=== PATIENT | female | born 1970 | race Caucasian/White ===

== ENCOUNTER 2017-05-09 07:35 | Inpatient (IN) | payer MEDICAID, SELFPAY ==
[2017-04-23 15:15] VITALS: BP 126/83; PULSE 70; RESP 18; TEMP 37.2; BMI 42.0
--- NOTE | 2017-04-23 15:36 | SDCEKG_ITS ---
Test Reason : Blood Pressure : / mmHG Vent. Rate : 062 BPM Atrial Rate : 062 BPM P-R Int : 130 ms QRS Dur : 084 ms QT Int : 390 ms P-R-T Axes : 033 022 012 degrees QTc Int : 395 ms Normal sinus rhythm with sinus arrhythmia Normal ECG Confirmed by HEBER TORREZ, MELISSA ([id number]), script editor GILMAR ZENG ([id number] on 04/24/2017 10:51:54 AM Referred By: ADAM LUEK Confirmed By:MELISSA BUCK MD
[2017-04-23 15:59] LABS: Absolute Lymphocyte Count 3.86 X10^3/ul (0.83-4.51); Absolute Neutrophil Count 5.8 X10^3/uL (2.0-7.7); Basophil# 0.05 X10^3/uL; Basophil% 0.5 % (0-1); Eosinophils% 3.8 % (0-5); Hematocrit 44.5 % (37-47); Hemoglobin 14.8 g/dl (12.0-15.0); Lymphocyte # 3.86 X10^3/ul (4.0); Lymphocyte % 36.4 % (19-41); Mean Corp Hgb Conc 33.3 g/gl (32-36); Mean Corpuscular Hgb 29.8 pg (27.0-32.0); Mean Corpuscular Volume 89.5 fL (81-99); Mean Platelet Vol. 10.6 fl (6.2-12.0); Monocyte# 0.52 X10^3/uL; Monocyte% 4.9 % (0-10); Neutrophil # 5.76 X10^3/uL (2.7-7.7); Neutrophil % 54.3 % (47-70); Platelet Count 222 K/mm3 (150-450); RBC Distribution Width CV 13.2 % (11.6-14.6); RBC Distribution Width SD 42.8 fl (35.1-43.9); Red Blood Count 4.97 M/mm3 (4.2-5.4); White Blood Count 10.6 K/mm3 (4.4-11.0)
[2017-04-23 16:03] LABS: POSITIVE COUNT NO; POSITIVE DIFFERENTIAL NO; POSITIVE MORPHOLOGY NO
[2017-04-23 16:31] LABS: Anion Gap 7 (5-15); BUN 11 mg/dL (7-18); BUN/Creat Ratio 17.4 RATIO (10-20); Calcium,Total 8.5 mg/dL (8.5-10.1); Chloride 105 mmol/L (98-107); Creatinine, Serum 0.63 mg/dL (0.55-1.02); EST Glomerular Filtration Rate 108 mL/min (>60); Est Glom Filt Rate - Afr Amer 130 mL/min (>60); Estimated Creatinine Clearance 96.35 ml/min; Glucose 82 mg/dL (70-110); Potassium 3.6 mmol/L (3.5-5.1); Sodium Level 137 mmol/L (136-145)
--- NOTE | 2017-04-23 18:02 | PCM.HP.BLA ---
History and Physical DATE OF SERVICE: 05/09/2017 SCHEDULED PROCEDURE: Left knee revision unicompartmental to a total knee replacement HISTORY OF PRESENT ILLNESS: This is a 47-year-old female who is been having ongoing pain in the left knee for approximately 3 years. Patient underwent a arthro-surface component in February 2016. Patient had increased pain in the left knee after the procedure and CT scan did show internal rotation of the implant. She was getting lateral subluxation of the patella. Patient initially needed narcotic pain medications. Patient underwent a revision femoral component left partial knee replacement on October 24, 2016. Patient initially was doing well after the procedure but pain increased in February 2017. It is progressively become worse. Pain is constant, aching, stabbing, and sore. She has pain going up and down stairs and sitting for extended periods of time. She has difficult time with doing housework, shopping, and leisure activities such as farming. Patient has tripped due to the pain. Patient has tried rest ice with minimal relief in symptoms. Patient has been through formal physical therapy and home exercises with no significant relief. She has been using Ultram and Tylenol which has been helpful. After discussion with Dr. Gan, the patient would like to proceed with a left knee revision unicompartmental to a total knee replacement. We are obtaining surgical clearance from patient's primary care physician. Patient denies any chest pain, shortness of breath, fevers chills, or recent infections. REVIEW OF SYSTEMS: ROS: Const: Denies change in appetite, fever, hard of hearing, vision problems and weight change CV: Denies chest pain, heart murmur, irregular heartbeat and peripheral vascular disease. Resp: Denies asthma, cough, pneumonia, sleep apnea, SOB, tuberculosis and wheezing. GI: Denies constipation, diarrhea, difficulty swallowing, heartburn, nausea, bloody stools and vomiting. : . (F Genital Sx) Urinary: denies incontinence. Musculo: Reports leg swelling, limp, trouble walking and weakness. Skin: Reports tattoo, but denies Raynaud's and history of shingles. Neuro: Reports numbness/tingling but denies ambulatory dysfunction, dizziness and tremor. Psych: Reports anxiety, insomnia and stress, but denies depression and mental illness. Arthur/Lymph: Denies anemia, bleeding/bruising tendency and past transfusion. Reviewed, no changes. PAST MEDICAL HISTORY: Advance Care Plan: No Advance Directives Effective Date: 04/23/2017 PMH: Medical Problems: Arthritis, Kidney Stones Accidents: None Surgical Hx: Kidney Stones - (2009) RT Knee Arhthroscopy - (01/2014) [facility] Lexx TKR - (02/2016) LAKSHMI @ [facility] LT TKR Revision - (10/24/2016) [email or web address] Anesthesia Complications: None Assistive Devices: Glasses Reviewed and updated. 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 Personal Habits: Cigarette Use: Patient is a current cigarette smoker, smokes some days.Alcohol: Denies use.Drug Use: Denies Use.Enjoy Exercising: Exercises 1-3 X/Week. Reviewed, no changes. VITALS: Ht: 64 Wt: 245lb Wt k.132 BMI: 42.0 BP: 120/78 Pulse: 80 Resp: 16 T: 99.0 T: 37.2C ALLERGIES: No Known Drug Allergy MEDICATIONS: Ultram 50 mg 1-2 by mouth q6 hour as needed pain, Tylenol 325 mg take as needed PRE-OP EXAM: General appearance:NORMAL Other: Eyes: Conjunctivae and lids: NORMAL Pupils: ERR Ears, Nose, Mouth, and Throat: NORMAL Other: Inspection of lips, teeth and gums: NORMAL Other: Neck: Examination of neck: no masses noted. Respiratory: Assessment of respiratory effort: NORMAL Other: Ausculation of lungs: clear to ausculation no wheeses, ronchi or rales. Cardiovascular: Ausculation of heart: regular rate and rhythem, no mummurs, gallops or rubs. Exam of carotid arteries: NORMAL Other: Gastrointestinal: Exam of abdomen: soft, nontender, nondistended bowel sounds present. Lymphatic: Palpation of nodes in neck: NORMAL Other: Palpation of nodes in Axillae: NORMAL Other: Neurological: see below Psychiatric: Orientation to time, place and person: NORMAL Other: Mood and affect: NORMAL Other: PHYSICAL EXAMINATION: Patient currently walking with the use of a cane. She does walk with a limping gait. Left knee incision is well-healed without erythema warmth or signs of infection. Patient does have tenderness to palpation of the lateral facet of the patella. Range of motion is +5? of extension to 115? of flexion. Sensations intact light touch IMAGING STUDIES: X-rays of the left knee at [facility] [place] shows patient to have progressive lateral migration of the patella. Initial postoperative films show patella sitting well in the trochlear groove. 2 subsequent films show progressive lateral migration. Implants appear to be without loosening. IMPRESSION: 1. Painful right unicompartmental knee replacement 2. History of kidney stones PLAN: Dr. Gan did discuss and review with the patient all treatment options including surgical versus nonsurgical. Patient wishes to proceed with above-stated procedure. Potential risks, benefits, and complications of this procedure were discussed in detail including but not limited to , infection, nerve and blood vessel damage, persistent pain, numbness, tingling, paresthesias, blood clot, pulmonary embolism, and requirement for further surgery. The patient expressed full understanding has no further questions for the doctor. Patient does agree to proceed with the above-stated procedure and has signed the surgery consent form. We are obtaining surgical clearance from PCP. ___ I have re-examined the patient. There are no clinical changes since date of exam. ___ See progress notes for changes. ___ Dictated on admission Date: Time: Signature:
--- NOTE | 2017-04-23 18:13 | HP.PCM_ITS ---
History and Physical DATE OF SERVICE: 05/09/2017 SCHEDULED PROCEDURE: Left knee revision unicompartmental to a total knee replacement HISTORY OF PRESENT ILLNESS: This is a 47-year-old female who is been having ongoing pain in the left knee for approximately 3 years. Patient underwent a arthro-surface component in February 2016. Patient had increased pain in the left knee after the procedure and CT scan did show internal rotation of the implant. She was getting lateral subluxation of the patella. Patient initially needed narcotic pain medications. Patient underwent a revision femoral component left partial knee replacement on October 24, 2016. Patient initially was doing well after the procedure but pain increased in February 2017. It is progressively become worse. Pain is constant, aching, stabbing, and sore. She has pain going up and down stairs and sitting for extended periods of time. She has difficult time with doing housework, shopping, and leisure activities such as farming. Patient has tripped due to the pain. Patient has tried rest ice with minimal relief in symptoms. Patient has been through formal physical therapy and home exercises with no significant relief. She has been using Ultram and Tylenol which has been helpful. After discussion with Dr. Gan, the patient would like to proceed with a left knee revision unicompartmental to a total knee replacement. We are obtaining surgical clearance from patient's primary care physician. Patient denies any chest pain, shortness of breath, fevers chills, or recent infections. REVIEW OF SYSTEMS: ROS: Const: Denies change in appetite, fever, hard of hearing, vision problems and weight change CV: Denies chest pain, heart murmur, irregular heartbeat and peripheral vascular disease. Resp: Denies asthma, cough, pneumonia, sleep apnea, SOB, tuberculosis and wheezing. GI: Denies constipation, diarrhea, difficulty swallowing, heartburn, nausea, bloody stools and vomiting. : . (F Genital Sx) Urinary: denies incontinence. Musculo: Reports leg swelling, limp, trouble walking and weakness. Skin: Reports tattoo, but denies Raynaud's and history of shingles. Neuro: Reports numbness/tingling but denies ambulatory dysfunction, dizziness and tremor. Psych: Reports anxiety, insomnia and stress, but denies depression and mental illness. Arthur/Lymph: Denies anemia, bleeding/bruising tendency and past transfusion. Reviewed, no changes. PAST MEDICAL HISTORY: Advance Care Plan: No Advance Directives Effective Date: 04/23/2017 PMH: Medical Problems: Arthritis, Kidney Stones Accidents: None Surgical Hx: Kidney Stones - (2009) RT Knee Arhthroscopy - (01/2014) [facility] Lexx TKR - (02/2016) LAKSHMI @ [facility] LT TKR Revision - (10/24/2016) [email or web address] Anesthesia Complications: None Assistive Devices: Glasses Reviewed and updated. 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 Personal Habits: Cigarette Use: Patient is a current cigarette smoker, smokes some days.Alcohol: Denies use.Drug Use: Denies Use.Enjoy Exercising: Exercises 1 -3 X/Week. Reviewed, no changes. VITALS: Ht: 64 Wt: 245lb Wt k.132 BMI: 42.0 BP: 120/78 Pulse: 80 Resp: 16 T: 99.0 T: 37.2C ALLERGIES: No Known Drug Allergy MEDICATIONS: Ultram 50 mg 1-2 by mouth q6 hour as needed pain, Tylenol 325 mg take as needed PRE-OP EXAM: General appearance:NORMAL Other: Eyes: Conjunctivae and lids: NORMAL Pupils: ERR Ears, Nose, Mouth, and Throat: NORMAL Other: Inspection of lips, teeth and gums: NORMAL Other: Neck: Examination of neck: no masses noted. Respiratory: Assessment of respiratory effort: NORMAL Other: Ausculation of lungs: clear to ausculation no wheeses, ronchi or rales. Cardiovascular: Ausculation of heart: regular rate and rhythem, no mummurs, gallops or rubs. Exam of carotid arteries: NORMAL Other: Gastrointestinal: Exam of abdomen: soft, nontender, nondistended bowel sounds present. Lymphatic: Palpation of nodes in neck: NORMAL Other: Palpation of nodes in Axillae: NORMAL Other: Neurological: see below Psychiatric: Orientation to time, place and person: NORMAL Other: Mood and affect: NORMAL Other: PHYSICAL EXAMINATION: Patient currently walking with the use of a cane. She does walk with a limping gait. Left knee incision is well-healed without erythema warmth or signs of infection. Patient does have tenderness to palpation of the lateral facet of the patella. Range of motion is +5? of extension to 115? of flexion. Sensations intact light touch IMAGING STUDIES: X-rays of the left knee at [facility] [place] shows patient to have progressive lateral migration of the patella. Initial postoperative films show patella sitting well in the trochlear groove. 2 subsequent films show progressive lateral migration. Implants appear to be without loosening. IMPRESSION: 1. Painful right unicompartmental knee replacement 2. History of kidney stones PLAN: Dr. Gan did discuss and review with the patient all treatment options including surgical versus nonsurgical. Patient wishes to proceed with above- stated procedure. Potential risks, benefits, and complications of this procedure were discussed in detail including but not limited to , infection , nerve and blood vessel damage, persistent pain, numbness, tingling, paresthesias, blood clot, pulmonary embolism, and requirement for further surgery. The patient expressed full understanding has no further questions for the doctor. Patient does agree to proceed with the above-stated procedure and has signed the surgery consent form. We are obtaining surgical clearance from PCP. ___ I have re-examined the patient. There are no clinical changes since date of exam. ___ See progress notes for changes. ___ Dictated on admission Date: Time: Signature:
[2017-05-09] VITALS (11 sets, daily range): BP systolic 111–130; BP diastolic 66–87; PULSE 53–79; RESP 16–18; TEMP 36.2–37.2; O2SAT 94–99; BMI 42.0
--- OUTSIDE RECORDS SUMMARY | 2017-05-09 07:38 | XMS RPT_ITS ---
:1970 Author Organization OHIP Support Name Relationship Address Phone Headroom [facility] Unavailable [address] + [place] [address] MARTHEY, KIRSTEN Unavailable [address] + [place] [address] [facility] Unavailable [address] + [place] [address] MARTHEY, KIRSTEN Unavailable [address] + [place] [address] [facility] Unavailable [address] + [place] [address] MARTHEY, KIRSTEN Unavailable [address] + [place] [address] [facility]room [facility] Unavailable [address] + [place] [address] MARTHEY, KIRSTEN Unavailable [address] + [place] [address] [employer] [facility] Unavailable [address] + [place] [address] MARTHEY, KIRSTEN Unavailable [address] + [place] [address] MARTHEY, KIRSTEN Unavailable Unavailable + MARTHEY, KIRSTEN Unavailable Unavailable + MARTHEY, KIRSTEN Unavailable Unavailable + MARTHEY, KIRSTEN Unavailable Unavailable + Headroom [facility] Unavailable [address] + [place] [address] Headroom [facility] Unavailable [address] + [place] [address] MARTHEY, KIRSTEN Unavailable [address] + [place] [address] MARTHEY, KIRSTEN Unavailable Unavailable + MARTHEY, KIRSTEN Unavailable Unavailable + MARTHEY, KIRSTEN Unavailable Unavailable + MARTHEY, KIRSTEN Unavailable Unavailable + Marthey, Kirsten Unavailable Unavailable + [employer] [facility] Unavailable [address] +. [place] [address] [employer] [facility] Unavailable [address] +. [place] [address] MARTHEY, KIRSTEN Unavailable [address] + [place] [address] Headroom [facility] Unavailable [address] +. [place] [address] [employer] [facility] Unavailable [address] +. [place] [address] MARTHEY, KIRSTEN Unavailable [address] + [place] [address] Care Team Providers Name Role Phone Fredo Mckeon Attending Unavailable PROVIDER, UNKNOWN Referring Unavailable Bernadette, Michelle Primary Care Unavailable FREDO MCKEON Attending Unavailable FREDO MCKEON Referring Unavailable DR. Gia FERRERA MD. MICHELLE Primary Care Unavailable KATRIN TURCIOS MD Attending Unavailable BERNADETTE, MICHELLE Primary Care Unavailable FREDO MCKEON MD Attending Unavailable FREDO MCKEON MD Referring Unavailable BERNADETTE, MICHELLE Primary Care Unavailable BERNADETTE, MICHELLE Attending Unavailable BERNADETTE, MICHELLE Primary Care Unavailable Deloris Drummond Attending Unavailable Bernadette, Michelle Primary Care Unavailable Fredo Mckeon Admitting Unavailable Fredo Mckeon Attending Unavailable Bernadette, Michelle Primary Care Unavailable Alexx Garcia Attending Unavailable Bernadette, Michelle Primary Care Unavailable Saleem Reyna Attending Unavailable Bernadette, Michelle Primary Care Unavailable Bernadette, Michelle Primary Care Unavailable Wild Kimbrough Attending Unavailable Fredo Mckeon Admitting Unavailable Fredo Mckeon Attending Unavailable Bernaedtte, Michelle Primary Care Unavailable Christiano Verde Attending Unavailable Fredo Mckeon Referring Unavailable Frankie Smith Admitting Unavailable Bernadette, Michelle Primary Care Unavailable Gonzalez Falk Attending Unavailable Gonzalez Falk Consulting Unavailable PROBLEMS PROBLEMS DATE TYPE CONDITION / CODE ATTENDING STATUS SOURCE 05/08/2017 Unknown Z01.818 - Encounter Christiano Verde Active [facility] for other [facility] preprocedural Hospital examination / Repository Z01.818(ICD-10) 04/02/2017 Unknown R10.9 - Unspecified Wild Kimbrough Active [facility] abdominal pain / Community R10.9(ICD-10) Hospital Repository 02/14/2017 Unknown HYDRONEPHROSIS WITH Jose, Active [place] RENAL AND URETERAL [facility] CALCULOUS Hospital OBSTRUCTION / Repository N13.2(ICD-10) 02/14/2017 Unknown PERSONAL HISTORY OF Jose, Active [place] URINARY CALCULI / [facility] Z87.442(ICD-10) Hospital Repository 02/14/2017 Unknown URINARY TRACT Jose, Active [place] INFECTION, SITE NOT [facility] SPECIFIED / Hospital N39.0(ICD-10) Repository 02/01/2017 Admitting Dysuria / [facility]TE[facility] Repository 02/14/2017 Unknown INSTABILITY OF Malik Fredo Active [facility] INTERNAL LEFT KNEE [facility] PROSTHESIS, INIT Hospital ENCNTR / Repository T84.023A(ICD-10) 02/14/2017 Unknown PROSTH/OTH Fredo Mckeon Active [place] IMPLNT/MTRLS [facility] ORTHOPEDIC DEVICES Hospital ASSOC W INCDT / Repository Y79.2(ICD-10) 02/14/2017 Unknown PRESENCE OF Fredo Mckeon Active [facility] ARTIFICIAL KNEE [facility] JOINT, BILATERAL / Hospital Z96.653(ICD-10) Repository 02/14/2017 Unknown MORBID (SEVERE) Fredo Mckeon Active [place] OBESITY DUE TO Community EXCESS CALORIES / Hospital E66.01(ICD-10) Repository 02/14/2017 Unknown SLEEP APNEA, Fredo Mckeon Active [facility] UNSPECIFIED / Community G47.30(ICD-10) Hospital Repository 09/20/2016 Admitting Unknown / FREDO MCKEON Active [facility] Diagnosis UNK([facility] Unknown) Repository 09/14/2016 Admitting Pain in left knee / MalikFredo Active [employer] [facility] Diagnosis M25.562(ICD-10) System Repository 09/14/2016 Admitting Presence of left Malik, Fredo Active [employer] [facility] Diagnosis artificial knee System joint / Repository Z96.652(ICD-10) 02/14/2017 Unknown EMBOLISM AND Drummond, Active [facility] THROMBOSIS OF [facility] SUPERFIC VEINS OF Hospital LEFT LOW EXTRM / Repository I82.812(ICD-10) 02/14/2017 Unknown OBESITY, UNSPECIFIED Drummond, Active [place] / E66.9(ICD-10) [facility] Repository 02/14/2017 Unknown BODY MASS INDEX Bhanu Active [facility] (BMI) 40.0-44.9, [facility] ADULT / Hospital Z68.41(ICD-10) Repository 02/14/2017 Unknown TOBACCO USE / Drummond, Active [facility] Z72.0(ICD-10) [facility] Repository 02/14/2017 Unknown BILATERAL PRIMARY KitGonzalez raya Active [place] OSTEOARTHRITIS OF [facility] KNEE / M17.0(ICD-10) Hospital Repository 02/14/2017 Unknown BODY MASS INDEX Gonzalez Falk Active [place] (BMI) 70 OR GREATER, [facility] ADULT / Hospital Z68.45(ICD-10) Repository 02/14/2017 Unknown OTHER FATIGUE / KitGonzalez raya Active [place] R53.83(ICD-10) [facility] Hospital Repository 02/14/2017 Unknown OBSTRUCTIVE SLEEP Gonzalez Falk Active [facility] APNEA (ADULT) Community (PEDIATRIC) / Hospital G47.33(ICD-10) Repository 02/14/2017 Unknown NICOTINE DEPENDENCE, Gonzalez Falk Active [facility] CIGARETTES, Community UNCOMPLICATED / Hospital F17.210(ICD-10) Repository 02/14/2017 Unknown OTHER DETENTION KitGonzalez raya Active [place] (CURRENT) DRUG Community THERAPY / Hospital Z79.899(ICD-10) Repository 02/14/2017 Unknown 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 (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) Gonzalez Falk Active [facility] USE OF ASPIRIN / Community Z79.82(ICD-10) Hospital Repository 02/14/2017 Unknown ACUTE UPPER KitGonzalez raya Active [facility] RESPIRATORY Community INFECTION, Hospital UNSPECIFIED / Repository J06.9(ICD-10) 02/14/2017 Unknown EDEMA, UNSPECIFIED / Kittoe, Gonzalez Active [facility] R60.9(ICD-10) [facility] Hospital Repository PROCEDURES PROCEDURES No Procedure Records FoundRESULTS RESULTS 12 LEAD ELECTROCARDIOGRAM Observed: 04/24/2017 Status: F Source: [facility] 10:52 AM [facility] [place] [facility] Vcukonpm0846 ALEM ANDRADE [address]YCV - SDC04/23/17 1538MR#: [id number] Acct: [id number]: ASHLY CROSS Rep #: [id number]: 47 From: Ash Buck MDAttending Dr: Fredo Mckeon MD Status: PRE INOrdering Dr: Fredo Mckeon MD Date: 04/23/17Location: [facility] [place] Sex: F CAdmitted:Test Reason :Blood Pressure : / mmHGVent. Rate : 062 BPM Atrial Rate : 062 BPMP- R Int : 130 ms QRS Dur : 084 msQT Int : 390 ms P-R-T Axes : 033 022 012 degreesQTc Int : 395 msNormal sinus rhythm with sinus arrhythmiaNormal ECGConfirmed by HEBER TORREZ, ASH ([id number]), newspaper copy editor GILMAR ZENG ([id number]) on 04/24/2017 10:51:54 AMReferred By: ADAM LUKE Confirmed By:ASH BUCK MD04/24/17 1051Date Ash Buck MDCC: Michelle eFrrera MD Date Dictated: 04/23/171537Date Transcribed: 04/23/17 153Transcriptionist:Signed HISTORY AND PHYSICAL Observed: 04/23/2017 Status: F Source: [facility] EXAM 6:13 PM [facility] [place] [place] [facility] [id number] [place] [place] [id number] and Gmyvolbd61/29/18 1802MR#: [id number] Acct: [id number]: ASHLY CROSS Rep #: [id number]: 1970 47 From: Darius [facility]: Bernadette TORREZ, Michelle Status: PRE IN YLocation: SDCHistory and PhysicalDATE OF SERVICE: 05/09/2017SCHEDULED PROCEDURE: Left knee revision unicompartmental to a total knee replacementHISTORY OF PRESENT ILLNESS:This is a 47-year-old female who is been having ongoing pain in the left knee for approximately3 years. Patient underwent a arthro-surface component in February 2016. Patient had increasedpain in the left knee after the procedure and CT scan did show internal rotation of theimplant. She was getting lateral subluxation of the patella. Patient initially needednarcotic pain medications. Patient underwent a revision femoral component left partial kneereplacement on October 24, 2016. Patient initially was doing well after the procedure but painincreased in February 2017. It is progressively become worse. Pain is constant, aching,stabbing, and sore. She has pain going up and down stairs and sitting for extended periods oftime. She has difficult time with doing housework, shopping, and leisure activities such asfarming. Patient has tripped due to the pain. Patient has tried rest ice with minimal reliefin symptoms. Patient has been through formal physical therapy and home exercises with nosignificant relief. She has been using Ultram and Tylenol which has been helpful. Afterdiscussion with Dr. Mckeon, the patient would like to proceed with a left knee revisionunicompartmental to a total knee replacement. We are obtaining surgical clearance frompatient's primary care physician. Patient denies any chest pain, shortness of breath, feverschills, or recent infections.REVIEW OF SYSTEMS:ROS: Const: Denies change in appetite, fever, hard of hearing, vision problems and weight changeCV: Denies chest pain, heart murmur, irregular heartbeat and peripheral vascular disease.Resp: Denies asthma, cough, pneumonia, sleep apnea, SOB, tuberculosis and wheezing.GI: Denies constipation, diarrhea, difficulty swallowing, heartburn, nausea, bloody stools andvomiting.: . (F Genital Sx) Urinary: denies incontinence.Musculo: Reports leg swelling, limp, trouble walking and weakness.Skin: Reports tattoo, but denies Raynaud's and history of shingles.Neuro: Reports numbness/tingling but denies ambulatory dysfunction, dizziness and tremor.Psych : Reports anxiety, insomnia and stress, but denies depression and mental illness.Arthur/Lymph: Denies anemia, bleeding/bruising tendency and past transfusion.Reviewed, no changes.PAST MEDICAL HISTORY:Advance Care Plan:No Advance Directives Effective Date: 04/23/2017PMH:Medical Problems:Arthritis, Kidney StonesAccidents:NoneSurgical Hx:Kidney Stones - (2009)RT Knee Arhthroscopy - (01/2014) WCHBil TKR - (02/2016) RYEDRKIN @ [facility] T[facility] Revision - (2016) [email or web address] Complications:NoneAssistive Devices: GlassesReviewed and updated.SOCIAL HISTORY:SH:Marital: .Occupation: 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.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.Hand Dominance: Right-handed.Personal Habits: Cigarette Use: Patient is a current cigarette smoker, smokes somedays.Alcohol: Denies use.Drug Use: Denies Use.Enjoy Exercising: Exercises 1-3 X/Week.Reviewed, no changes.VITALS:Ht: 64 Wt: 245lb Wt k.132 BMI: 42.0 BP: 120/78 Pulse: 80 Resp: 16 T: 99.0 T: 37.2CALLERGIES:No Known Drug AllergyMEDICATIONS:Ultram 50 mg 1-2 by mouth q6 hour as needed pain, Tylenol 325 mg take as neededPRE-OP EXAM:General appearance:NORMAL Other:Eyes: Conjunctivae and lids: NORMAL Pupils: ERREars, Nose, Mouth, and Throat: NORMAL Other:Inspection of lips, teeth and gums: NORMAL Other:Neck: Examination of neck: no masses noted.Respiratory: Assessment of respiratory effort: NORMAL Other:Ausculation of lungs: clear to ausculation no wheeses, ronchi or rales.Cardiovascular: Ausculation of heart: regular rate and rhythem, no mummurs, gallops or rubs.Exam of carotid arteries: NORMAL Other:Gastrointestinal: Exam of abdomen: soft, nontender, nondistended bowel sounds present.Lymphatic: Palpation of nodes in neck: NORMAL Other:Palpation of nodes in Axillae: NORMAL Other:Neurological: see belowPsychiatric: Orientation to time, place and person: NORMAL Other:Mood and affect: NORMAL Other:PHYSICAL EXAMINATION:Patient currently walking with the use of a cane. She does walk with a limping gait. Leftknee incision is well-healed without erythema warmth or signs of infection. Patient does havetenderness to palpation of the lateral facet of the patella. Range of motion is +5 ofextension to 115 of flexion. Sensations intact light touchIMAGING STUDIES:X-rays of the left knee at [place] shows patient to haveprogressive lateral migration of the patella. Initial postoperative films show patella sittingwell in the trochlear groove. 2 subsequent films show progressive lateral migration. Implantsappear to be without loosening.IMPRESSION:1. Painful right unicompartmental knee replacement2. History of kidney stonesPLAN:Dr. Mckeon did discuss and review with the patient all treatment options including surgicalversus nonsurgical. Patient wishes to proceed with above-stated procedure. Potential risks,benefits, and complications of this procedure were discussed in detail including but notlimited to , infection , nerve and blood vessel damage, persistent pain, numbness,tingling, paresthesias , blood clot, pulmonary embolism, and requirement for further surgery.The patient expressed full understanding has no further questions for the doctor. Patient doesagree to proceed with the above-stated procedure and has signed the surgery consent form. Weare obtaining surgical clearance from PCP.___ I have re- examined the patient. There are no clinical changes since date of exam.___ See progress notes for changes.___ Dictated on admissionDate: Time: Signature: 04/23/17 1813 <Electronically signed by Darius Tellez PA-C>Date Darius KLINE-CCosigner Signature: Date (if applicable)CC: Darius KLINE; Michelle Ferrera MD Signed CBC W/DIFF, AUTOMATED Collected: 04/23/2017 Status: F Source: [facility] 3:50 PM [facility] [place] TYPE CODE TESTS RESULT OUT OF RANGE REFERENCE UNITS LAB L100.1000 Normal 4.4-11.0 K/mm3 WBC 10.6 LAB L100.1200 Normal 4.2-5.4 M/mm3 RBC 4.97 LAB L100.1300 Normal 12.0-15.0 g/dl HGB 14.8 LAB L100.1400 Normal 37-47 % HCT 44.5 LAB L100.1500 Normal 81-99 fL MCV 89.5 LAB L100.1600 Normal 27.0-32.0 pg MCH 29.8 LAB L100.1700 Normal 32-36 g/gl MCHC 33.3 LAB L100.1810 Normal 11.6-14.6 % RDW 13.2 CV LAB L100.1820 Normal 35.1-43.9 fl RDW 42.8 SD LAB L100.1900 Normal 150-450 K/mm3 PLT 222 LAB L100.2000 Normal 6.2-12.0 fl MPV 10.6 LAB L100.2100 Normal 47-70 % NEUT% 54.3 LAB L100.2200 Normal 19-41 % LY% 36.4 LAB L100.2300 Normal 0-10 % MONO% 4.9 LAB L100.2400 Normal 0-5 % EO% 3.8 LAB L100.2500 Normal 0-1 % BASO% 0.5 LAB L100.2550 Normal 0.0-0.9 % IM 0.100 GRAN % Result Comment: IG% - Immature Granulocytes (promyelocytes, myelocytes andmetamyelocytes) > 1% indicates that a LEFT SHIFT is Present. LAB L100.2620 Normal 2.0-7.7 X10 3/uL Absolute Neut 5.8 LAB L100.2720 Normal 0.83-4.51 X10 3/ul Absolute Lymph 3.86 Performed By: #### L100.0100 ####[facility] [address] [place], [address] BASIC METABOLIC Collected: 04/23/2017 Status: F Source: [place] PROFILE (BMP) 3:50 PM [facility] [place] TYPE CODE TESTS RESULT OUT OF RANGE REFERENCE UNITS LAB L501.0100 Normal 70-110 mg/dL GLU 82 LAB L501.1000 Normal 7-18 mg/dL BUN 11 LAB L501.1100 Normal 0.55-1.02 mg/dL 0.63 CREAT,SERUM Result Comment: The validity of the calculated GFR AND GFRAA in patients over70 years has not been determined. Clinical correlation isessential. LAB L501.1110 Normal >60 mL/min EST GFR 108 Result Comment: Non- GFR Calc LAB L501.1115 Normal >60 mL/min EST GFR - 130 AA Result Comment: GFR Calc LAB L501.1255 Normal ml/min Estimated 96.35 CRCL LAB L501.1300 Normal 10-20 RATIO BUN/CRE 17.4 LAB L501.2200 Normal 8.5-10 mg/dL CA 8.5 .1 LAB L501.5300 Normal 136-14 mmol/L NA 137 5 LAB L501.5600 Normal 3.5-5. mmol/L K 3.6 1 LAB L501.5900 Normal 98-107 mmol/L CL 105 LAB L501.6100 Normal 21.0-3 mmol/L CO2 25.0 2.0 LAB L501.6200 Normal 5-15 GAP 7 Performed By: #### L500.2500 ####[facility] [address] [place], [address] Observed: 04/23/2017 Status: F Source: [place] MRSA/SAID SCREEN 3:50 PM [facility] [place] MRSA/SAID SCRNS. AUREUS S. aureus NegativeMRSA MRSA Negative Performed By: #### M100.651 ####[facility] [address] [place], [address] EMERGENCY DEPARTMENT Observed: 04/04/2017 Status: F Source: [place] SUMMARY 1:51 AM [facility] [place] [facility] [id number] [id number] Department Fqmpzjm27/07/18 1909MR#: [id number] Acct: [id number]: ASHLY CROSS Rep #: [id number]: 1970 47 From: Wild Kimbrough DOPCP: Bernadette TORREZ,Michelle Status: DEP ER- ER Visit SummaryDate of Service: 04/01/17Chief Complaint: Abdominal painHistory of Present Illness: The patient is a 47 F who states that this morning she developed aleft lower quadrant abdominal pain that after a while seemed to radiate to her left flank. Shestates that it is fairly severe this caused her to have anorexia today. She notes no bowelchanges or vomiting. She noted some urinary frequency yesterday but today is only urinatedtwice. She notes a history of kidney stones. She sees .Physical Examination: Afebrile vital signs are stableGen: Well-nourished well-developed obeseHead: Normocephalic atraumaticEyes: Perrl EOMIENT: TMs clear no rhinorrhea moist mucous membranesNeck: Supple no lymphadenopathy no JVD nontenderCVS: Regular rate rhythm no murmurs normal S1-R0Hnpugpxmega: No distress clear to auscultation bilaterally chest nontenderAbdomen: Soft mild tenderness to palpation in the left lower quadrant and suprapubic regionnondistended normal bowel sounds no massesBack: NontenderExtremity: Nontender no edemaSkin: Normal color no rashNeuro: alert orientated 3 CN II-XII intact normal strength sensation reflexes gait cerebellarPsych: Normal affect normal moodTest Results: CBC CMP normal. Urinalysis 5-[address] of the pelvis did not showanything acute.Emergency Department Course and Treatment: Patient received Toradol morphine and Zofran and herpain is significantly improved. When I look at the CT I see a calcification near the left sideof her bladder I do wonder if this is a recently passed kidney stone. He would clinically makesense with her symptoms. I am going to write for a few Keatchie. Patient to return if painworsens or changes. If patient continues to have pain in 24 hours I would suggest a repeatevaluation.Impression: 1. Acute abdominal painThis note was generated with [employer] dictation software. It may contain incorrect words,spelling, and punctuation that were not noted in review of the chart prior to signingED Disposition- Plan for ED Patient:Disposition: Home or Assisted LivingChief Complaint: Abd PainInstructions: ED Abdominal Pain Unkn Cause, ED Stone Renal W ColicPrescriptions:Hydrocodone Bitart/Apap 5-325 [Keatchie 5/325] 1 - 2 tab PO Q4H PRN PRN #12 tabPRN Reason: PainReferrals:Michelle Ferrera MD [Primary Care Provider ] - (If you continue to have pain in 24 hours Iwould recommend repeat examination either by primary care or the emergency department)What to do if you have ProblemsFor any increased pain, shortness of breath, bleeding, nausea or vomiting, chest pain, or anyunexpected problems, contact your Primary Care Provider. Call [facility] ([phone])or report to the closest Emergency Room.Call 911 if necessary.01/10 0151 <Electronically signed by Wild Kimbrough DO>Date Wild Kimbrough DOCosigner Signature (If Indicated): Date CC: Michelle Ferrera MD URINALYSIS, COMPLETE Collected: 04/01/2017 Status: F Source: [place] 6:30 PM [facility] [place] Order Comment: Order Date: 04/01/17How was Urine Obtained? CLEAN CATCH TYPE CODE TESTS RESULT OUT OF RANGE REFERENCE UNITS LAB L400.3000 Normal Yellow COLOR Yellow LAB L400.3050 Normal Clear CLARITY Clear LAB L400.3200 Normal Normal mg/dl GLUCOSE, UR Normal LAB L400.3300 Normal Negative mg/dL BILIRUBIN Negative URINE LAB L400.3400 Normal Negative mg/dl KETONE UR Negative LAB L400.3465 Normal 1.002-1.030 SP.GR. 1.025 DIPSTX LAB L400.3550 Normal 5.0 - 8.0 pH UR 5.0 LAB L400.3600 Normal Negative mg/dl PROT DIPSTX Negative LAB L400.3700 Normal Normal mg/dl UROBILI Normal LAB L400.3750 Normal Negative NITRITE UR Negative LAB L400.3780 High Negative /ul OCCULT 250 BLOOD-UR LAB L400.3800 Normal Negative /ul LEUK Negative ESTERASE LAB L400.4050 Normal 0-5 /hpf WBC 0 SEEN LAB L400.4100 Normal 0-5 /hpf RBC-UA 5-10 SEEN LAB L400.4150 Normal 5-10 /hpf SQUAM EPI 0-5 SEEN LAB L400.4300 Normal None Seen /hpf BACTERIA 0 SEEN LAB L400.4350 Normal <or=2+ /hpf MUCUS, 0 SEEN URINE Performed By: #### L400.0001 ####[facility] [address] [place], [address] CBC W/DIFF, AUTOMATED Collected: 04/01/2017 Status: F Source: [place] 6:15 PM [facility] [place] TYPE CODE TESTS RESULT OUT OF RANGE REFERENCE UNITS LAB L100.1000 Normal 4.4-11.0 K/mm3 WBC 9.1 LAB L100.1200 Normal 4.2-5.4 M/mm3 RBC 5.10 LAB L100.1300 High 12.0-15.0 g/dl HGB 15.2 LAB L100.1400 Normal 37-47 % HCT 45.0 LAB L100.1500 Normal 81-99 fL MCV 88.2 LAB L100.1600 Normal 27.0-32.0 pg MCH 29.8 LAB L100.1700 Normal 32-36 g/gl MCHC 33.8 LAB L100.1810 Normal 11.6-14.6 % RDW 13.4 CV LAB L100.1820 Normal 35.1-43.9 fl RDW 43.1 SD LAB L100.1900 Normal 150-450 K/mm3 PLT 261 LAB L100.2000 Normal 6.2-12.0 fl MPV 10.1 LAB L100.2100 Normal 47-70 % NEUT% 54.0 LAB L100.2200 Normal 19-41 % LY% 35.9 LAB L100.2300 Normal 0-10 % MONO% 5.8 LAB L100.2400 Normal 0-5 % EO% 3.5 LAB L100.2500 Normal 0-1 % BASO% 0.7 LAB L100.2550 Normal 0.0-0.9 % IM 0.100 GRAN % Result Comment: IG% - Immature Granulocytes (promyelocytes, myelocytes andmetamyelocytes) > 1% indicates that a LEFT SHIFT is Present. LAB L100.2620 Normal 2.0-7.7 X10 3/uL Absolute Neut 4.9 LAB L100.2720 Normal 0.83-4.51 X10 3/ul Absolute Lymph 3.26 Performed By: #### L100.0100 ####[facility] [address] [place], [address] COMPREHENSIVE METABOLIC Collected: 04/01/2017 Status: F Source: [facility] 6:15 PM [facility] [place] TYPE CODE TESTS RESULT OUT OF RANGE REFERENCE UNITS LAB L501.0100 Normal 70-110 mg/dL GLU 94 LAB L501.1000 Normal 7-18 mg/dL BUN 13 LAB L501.1100 Normal 0.55-1.02 mg/dL 0.70 CREAT,SERUM Result Comment: The validity of the calculated GFR AND GFRAA in patients over70 years has not been determined. Clinical correlation isessential. LAB L501.1110 Normal >60 mL/min EST GFR 95 Result Comment: Non- GFR Calc LAB L501.1115 Normal >60 mL/min EST GFR - 115 AA Result Comment: GFR Calc LAB L501.1255 Normal ml/min Estimated 90.36 CRCL LAB L501.1300 Normal 10-20 RATIO BUN/CRE 18.5 LAB L501.1500 Normal 6.4-8. g/dL T PROT 7.1 2 LAB L501.1800 Normal 3.4-5. g/dL ALB 3.7 0 Result Comment: Please note revised Albumin AND Globulin reference rangeeffective 2017. LAB L501.1950 Normal 2.2-4.2 g/dL GLOB 3.4 LAB L501.2000 Normal 0.9-2.4 RATIO A/G 1.1 LAB L501.2200 Normal 8.5-10.1 mg/dL CA 8.8 LAB L501.4100 Low 15-37 U/L AST 9 LAB L501.4305 Normal 45-117 U/L ALK P 56 LAB L501.4405 Normal 12-78 U/L ALT 16 LAB L501.4600 Normal 0.20-1.00 mg/dL T BILI 0.30 LAB L501.5300 Normal 136-145 mmol/L NA 143 LAB L501.5600 Normal 3.5-5.1 mmol/L K 3.8 LAB L501.5900 High 98-107 mmol/L CL 111 LAB L501.6100 Normal 21.0-32.0 mmol/L CO2 26.0 LAB L501.6200 Normal 5-15 GAP 6 Performed By: #### L500.4050, L501.2450 ####[facility] [address] [place], [address] LIPASE Collected: 04/01/2017 Status: F Source: [place] 6:15 PM [facility] [place] TYPE CODE TESTS RESULT OUT OF RANGE REFERENCE UNITS LAB L501.2450 Normal 73-393 U/L LIPASE 152 Performed By: #### L500.4050, L501.2450 ####[facility] [address] [place], [place], [address] ABDOMEN/PELVIS WITHOUT Observed: 04/01/2017 Status: F Source: [place] CONT 6:08 PM [facility] [place] [address] [place] [address]Fagotuo/Pelvis without ContMR#: [id number] Acct: [id number]: ASHLY CROSS Rep #: [id number]: F 47 From: Winter Arreola MDPCP: Michelle Ferrera MD Status: REG ERStudy: Abdomen/Pelvis without Cont Date of Exam: 04/01/17Exam# [id number] Ordering Dr: Wild Kimbrough DOSTUDY: CT ABDOMEN AND PELVIS WITHOUT CONTRASTREASON FOR EXAM: Female, 47 years old. Abdominal pain and nausea.RADIATION DOSAGE (If Supplied By Facility ): CTDIvol = ( 23.21 ) mGy, DLP =( 1188.56 ) mGycmTECHNIQUE: Transaxial images were obtained from the dome of the diaphragmto the symphysis pubis without oral contrast, and without intravenouscontrast. Sagittal and coronal images were reconstructed.Individualized dose optimization techniques were used for this CT.COMPARISON: February 05, 2017 FINDINGS: There is minimal atelectasis present. The visualized portions of the heartare stable.Normal liver. There are gallstones within the gallbladder. Normal spleen.Normal pancreas.Normal bilateral adrenal glands.Normal right kidney. Normal left kidney.Normal visualized stomach. Normal small intestine. There are scatteredcolonic diverticula consistent with diverticulosis. The appendix isvisualized and appears normal.There is diffuse atherosclerotic calcification of the abdominal aorta,without a demonstrated aneurysm. Normal inferior vena cava. Normalretroperitoneum.Normal urinary bladder.Normal abdominal wall. There are diffuse degenerative changes of thevisualized thoracic and lumbar spine. ORDER #: [id number] CT/Abdomen/Pelvis without ContIMPRESSION:Cholelithiasis.Atherosclerosis.Colonic diverticulosis without evidence of diverticulitis.Degenerative changes.Electronically Signed:Winter Arreola MD at 19:17 ESTTel , Service support , BP: Wild Kimbrough DO; Michelle Ferrera MD Supervisor Cereal:Signed OPERATIVE REPORT Observed: 02/14/2017 Status: F Source: [place] 4:25 PM [facility] [place] [place] [facility] [address] [facility] [place], [place] [address]Iepamgxim Wipjxr29/22/17 1622MR#: [id number] Acct: [id number]: ASHLY CROSS Rep #: [id number]: 1970 47 From: Saleem Reyna MDPCP: Michelle Ferrera MD Status: REG SDC YLocation: AC FF56-7Ltyyuh of OperationDate of Procedure: 02/14/17Pre-Operative Diagnosis: Left ureteral calculi proximal causing high-grade obstruction.Post-Operative Diagnosis: Same.Surgery/Procedure Performed:: Left extracorporeal shockwave lithotripsy.Description of Surgical Findings::47-year-old female taken back to the operating room after smooth induction of generalanesthesia she was placed on the operating room table and on the lithotripter table we thenidentified the stone in the left proximal ureter causing high-grade obstruction and we treatedthe stone with shockwave lithotripsy a total of 3000 shockwaves was delivered at a rate of 90power up to 6 and 7 at the end of the treatment cycle the stone was no more visible onfluoroscopy and appeared to broken up very nicely. Because of this no stent was left. Patientanesthetic was reversed she is taken back to PACU good good condition plan to see her back in afew weeks with a KUB.Type of Anesthesia:: GeneralDrains: none- Admit VTE DocumentationVTE Present on Admission: NoVTE Mechan Device Prophylaxis: SCD'sVTE Pharm Prophylaxis ordered? : NoReason prophylaxis not ordered:: Treatment Not Sfscjzmmh84/22/17 1625 <Electronically signed by Saleem Reyna MD>Date Saleem Reyna MDCC: Saleem Reyna MD ; Michelle Ferrera MD Signed DISCHARGE INSTRUCTION Observed: 02/14/2017 Status: F Source: [place] 4:22 PM [facility] [place] [facility] [address] [place], [place] [address]Okedqxuyhvwp for Home/Discharge Tgoukgpnwktn17/22/17 1622MR #: [id number] Acct: [id number]: ASHLY CROSS Rep #: [id number]: 1970 47 From: Saleem Reyna MDPCP: Michelle Ferrera MD Status: REG SDCDischarge Diet: Light diet - advance as toleratedDischarge Activity: Return to Normal ActivityCall your doctor if your incision/area has: Continuous Slow Oozing, Sudden Increased Bleeding, Increased Pain/ Swelling, Increased Redness, Foul Smelling Discharge, Swelling at the incisionsiteAllergies/Adverse Reactions:AllergiesNo Known Allergies Allergy ( Verified 02/05/17 14:38)Medications to take at DischargeNitrofurantoin Macrocrystals [Macrobid] 100 mg PO Q12 #14 capsule 02/05/17Oxycodone HCl/Acetaminophen [ Percocet 5/325] 1 tablet PO Q6H PRN PRN #20 tablet 02/05/17Hydrocodone/Acetaminophen [ Keatchie 5-325 Tablet] 1 each PO Q4H PRN PRN #14 tablet 02/14/17The following prescriptions were given:Hydrocodone/Acetaminophen [Keatchie 5-325 Tablet] 1 each PO Q4H PRN PRN #14 tabletPRN Reason: PainPrimary Care Physician:Michelle Ferrera MD [Primary Care Provider] -Please Follow Up With: Saleem Reyna MDWhen: in 2 weeks, please call to make an appointment.02/14/17 1622 <Electronically signed by Saleem Reyna MD>Date Saleem Reyna MDCC: Michelle Ferrera MD ABDOMEN SINGLE VIEW Observed: 02/14/2017 Status: F Source: [place]CORD 12:00 AM [facility] [address] [place], [place] [address]Jrsksfg Single ViewMR#: [id number] Acct: [id number]: ASHLY CROSS Rep #: [id number]: 1970 F 47 From: Landon Corbett MDPCP: Michelle Ferrera MD Status: REG SDCStudy: Abdomen Single View Date of Exam: 02/14/17Exam# [id number] Ordering Dr: Saleem Reyna MDSTUDY: X-RAY - ABDOMEN/PELVISREASON FOR EXAM: Female, 47 years old. Abdominal pain.TECHNIQUE: Two AP supine views of the abdomen and pelvis.COMPARISON: Comparison is made with prior CT scan and abdomen datedNove2016. FINDINGS:Normal visualized lung bases.There is an unremarkable bowel gas pattern. There is evidence of acalcified gallstone in the right upper quadrant.There is a 6.4 mm calculus in the lower pole calyx of the left kidney.There are calcified phleboliths in the pelvis. Normal visualized osseousstructures. ORDER #: [id number] RAD/ Abdomen Single ViewIMPRESSION:6.4 mm calculus in the lower pole calyx of the left kidney. Gallstone.Electronically Signed:Landon Corbett MD at 14:47 ESTTel [phone], Service support , JR: Saleem Reyna MD; Michelle Ferrera MD Supervisor Cereal:Signed EMERGENCY DEPARTMENT Observed: 02/06/2017 Status: F Source: [place] SUMMARY 3:50 PM [facility] [place] [facility] [address] [place], [place] [address]Eaamgsphp Department Ithrvbz68/13/17 1927MR#: [id number] Acct: [id number]: ASHLY CROSS Rep #: [id number]: 1970 47 From: Alexx Garcia MDPCP: Michelle Ferrera MD Status: DEP ER- ER Visit SummaryDate of Service: 02/05/17Chief Complaint: Left flank painHistory of Present Illness: The patient is a [address] Ferrera. She reports that shehas suprapubic and left flank pain that began 4 days ago. It is a constant waxing and waningpain. She describes it as cramping. Is 8 out of 10 at worst and 7 out of 10 currently. Isworsened by movement and relieved by nothing. She has had nausea without vomiting. Her lastproblem was today. She has had no melena hematochezia. She has had dysuria at the end ofurination as well as frequency and hematuria. She was placed on Cipro 4 days ago and has hadno relief. She contacted her primary care physician who told her that her urine culture wasnegative. She denies any fever. She has had chills.Physical Examination:Vitals: Stable. Afebrile.General: Well-nourished and well- developed.Head: Normocephalic atraumatic.Neck: Supple, no lymphadenopathy. No JVD. Nontender.Cardiovascular: Regular rate and rhythm. No murmurs.Respiratory: No respiratory distress. Clear to auscultation bilaterally.Abdominal: Soft, nontender, nondistended, normal bowel sounds. No guarding, rebound, orperitoneal signs.Back: Nontender.Extremities: Nontender, no edema.Skin: Normal color, no rash.Neurologic: Alert and oriented 3. Cranial nerves II through XII are intact. Normal strengthand sensation.Psych: Normal affect.Test Results: CBC is marked for a white count of 13.1 hemoglobin of 15.8. Lactic acid isnormal. Chem-7 is normal. UA has 50-100 white blood cells, greater than 100 red blood cells,calcium oxalate crystals, and 3+ bacteria. test is negative. CT flank shows a 9.2mm stone in the left collecting system near the UPJ with mild hydronephrosis.Emergency Department Course and Treatment: Patient was treated with morphine and Zofran for herpain and nausea. She was given Rocephin IV.Treatment Plan: The patient was seen in the emergency department by Dr. Holman. She wouldlike to go home. She is discharged with Macrobid, Percocet, and Zofran. Instructed tofollow-up with Dr. Holman in 2 days for lithotripsy. Return to the emergency department forany worsening symptoms.Disposition: To home in improved and stable condition.Impression: 1. Left ureterolithiasis.2. UTI.This note was generated with Dragon dictation software. It may contain incorrect words,spelling, and punctuation that were not noted in review of the chart prior to signingED Disposition- Plan for ED Patient:Disposition: Home or Assisted LivingChief Complaint: Flank PainInstructions: ED Stone Renal W ColicPrescriptions:Oxycodone HCl/Acetaminophen [Percocet 5/325] 1 tablet PO Q6H PRN PRN #20 tabletPRN Reason: PainOndansetron [Zofran Odt] 4 mg PO Q8H PRN PRN #10 tabletPRN Reason: NauseaNitrofurantoin Macrocrystals [Macrobid] 100 mg PO Q12 # 14 capsuleReferrals:Ash Holman MD [STAFF PHYSICIAN] - Keep Maureen appointmentWhat to do if you have ProblemsFor any increased pain, shortness of breath, bleeding, nausea or vomiting, chest pain, or anyunexpected problems, contact your Primary Care Provider. Call [facility] ([phone])or report to the closest Emergency Room.Call 911 if necessary.02/06/17 1550 <Electronically signed by Alexx Garcia MD>Date Alexx Garcia [facility] Signature (If Indicated): Date CC: Michelle Ferrera MD CONSULTATION Observed: 02/06/2017 Status: F Source: [place] 3:10 PM [facility] [place] [facility] [address] [place] [address]Pyfuaxchpfzn58/14/17 1505#: [id number] Acct: [id number]: ASHLY CROSS Rep #: [id number]: [birth year] From: Ash Holman MDPCP: Michelle Ferrera MD Status: DEP ER YLocation: EDProblem List(1) Kidney calculusStatus: AcuteReason for ConsultDate of Consultation: 02/05/17History of Present Illness:The patient is a 47 year old F is to the emergency room with left renal colic. He has hadprior stones in the past. Is been struggling for several days with intermittent pain. A CTscan was done in the ER showing a 11 mm stone distal renal pelvis. []Past Medical HistoryPast Medical History (Chronic Problems):Chronic ProblemsMorbid obesity (Chronic)Sleep apnea (Chronic)Tobacco use (Chronic)AllergiesNo Known Allergies Allergy (Verified 02/05/17 14:38)Home Medications:Ambulatory OrdersMedication Instructions RecordedAcetaminophen [Tylenol] 1, 000 mg PO Q8 #90 tablet 10/27/16Celecoxib [Celebrex] 50 mg PO DAILY PRN 02/05/17Nitrofurantoin Macrocrystals 100 mg PO Q12 #14 capsule Surgical History: arthroscopy, knee - 2013Psychiatric History: No pertinent psych hxGYN History: No pertinent REFUELING RAMPMAN historySmoking Status: Current every day smoker- * Family History MaternalHistory Items: Diabetes PaternalHistory Items: - - age 56 sepsis- Physical ExamGeneral: Alert, Oriented x3Neck: Supple, No JVD, Negative Carotid BruitsLungs: Clear to auscultation, Normal air movementCardiovascular: Regular rate, No murmursAbdomen: Bowel Sounds Present, Soft, Non Tender, - - pain to percusssion over left CVAExtremities: No edema, Capillary Refill Less than 3 SecondsPsych/Mental Status: Normal Affect, AppropriateVital SignsTemp Pulse Resp BP Pulse Ox98.7 F 65 16 122/76 14:36 02/05/17 19:41 02/05/17 19:41 02/05/17 19:41 02/05/17 19:41Oxygen Delivery Method Room AirWeight: 112 kgBody Mass Index (BMI) 42.3Microbiology Past 72 Hours02/05/17 15:38 Urine Culture - PreliminaryUrine, Clean Catch Culture exhibits no growth.Laboratory Tests Past 24 HrsWBC 13.1 HAssessment/PlanWould add to past medical history of both arthritis and history of kidney stones. Unable toadd this to the computer system.For now has a stone with HU of 750 and unlikely to pass this on her own. Had discussion withpatient and plan now is for ESWL as an outpatient and probable stent. She might have aninfection at this time we discussed the possibilities of sepsis developing and if any issuesdevelop may need inpatient hospitalization. If she starts feeling febrile pain is uncontrolledshe will call back. Otherwise plan to schedule for ESWL as an outpatient.02/06/17 1510 <Electronically signed by Ash Holman MD>Date Ash Holman MDCosigner Signature (if applicable): Date CC: Michelle Ferrera MD Signed Observed: 02/05/2017 Status: F Source: [place] CULTURE, BLOOD (WB) 5:08 PM [facility] [place] BCNo growth in 5 days. Performed By: #### M200.1000 ####[facility] [address] [place], [address] BASIC METABOLIC Collected: 02/05/2017 Status: F Source: [place] PROFILE (BMP) 5:00 PM [facility] [place] TYPE CODE TESTS RESULT OUT OF RANGE REFERENCE UNITS LAB L501.0100 Normal 70-110 mg/dL GLU 91 LAB L501.1000 Normal 7-18 mg/dL BUN 11 LAB L501.1100 Normal 0.55-1.02 mg/dL 0.67 CREAT,SERUM Result Comment: The validity of the calculated GFR AND GFRAA in patients over70 years has not been determined. Clinical correlation isessential. LAB L501.1110 Normal >60 mL/min EST GFR 101 Result Comment: Non- GFR Calc LAB L501.1115 Normal >60 mL/min EST GFR - 122 AA Result Comment: GFR Calc LAB L501.1255 Normal ml/min Estimated 90.60 CRCL LAB L501.1300 Normal 10-20 RATIO BUN/CRE 16.4 LAB L501.2200 Normal 8.5-10 mg/dL CA 9.0 .1 LAB L501.5300 Normal 136-14 mmol/L NA 140 5 LAB L501.5600 Normal 3.5-5. mmol/L K 3.8 1 LAB L501.5900 Normal 98-107 mmol/L CL 107 LAB L501.6100 Normal 21.0-3 mmol/L CO2 25.0 2.0 LAB L501.6200 Normal 5-15 GAP 8 Performed By: #### L500.2500 ####[facility] [address] [facility]. [place], [place], [address] LACTIC ACID Collected: 02/05/2017 Status: F Source: [place] 5:00 PM [facility] Order Comment: Yes/No query for Sepsis Lactate Rule Y TYPE CODE TESTS RESULT OUT OF RANGE REFERENCE UNITS LAB L503.6005 Normal 0.4-2.0 mmol/L LACTIC 0.8 ACID Performed By: #### L503.6005 ####[facility] [address] [place], [place], [address] CBC W/DIFF, AUTOMATED Collected: 02/05/2017 Status: F Source: CONCORD 5:00 [facility] REPOSITORY TYPE CODE TESTS RESULT OUT OF RANGE REFERENCE UNITS LAB L100.1000 High 4.4-11.0 K/mm3 WBC 13.1 LAB L100.1200 Normal 4.2-5.4 M/mm3 RBC 5.31 LAB L100.1300 High 12.0-15.0 g/dl HGB 15.8 LAB L100.1400 Normal 37-47 % HCT 46.3 LAB L100.1500 Normal 81-99 fL MCV 87.2 LAB L100.1600 Normal 27.0-32.0 pg MCH 29.8 LAB L100.1700 Normal 32-36 g/gl MCHC 34.1 LAB L100.1810 Normal 11.6-14.6 % RDW 13.7 CV LAB L100.1820 Normal 35.1-43.9 fl RDW 43.5 SD LAB L100.1900 Normal 150-450 K/mm3 PLT 243 LAB L100.2000 Normal 6.2-12.0 fl MPV 10.5 LAB L100.2100 Normal 47-70 % NEUT% 60.7 LAB L100.2200 Normal 19-41 % LY% 29.7 LAB L100.2300 Normal 0-10 % MONO% 7.2 LAB L100.2400 Normal 0-5 % EO% 1.4 LAB L100.2500 Normal 0-1 % BASO% 0.8 LAB L100.2550 Normal 0.0-0.9 % IM 0.200 GRAN % Result Comment: IG% - Immature Granulocytes (promyelocytes, myelocytes andmetamyelocytes) > 1% indicates that a LEFT SHIFT is Present. LAB L100.2620 High 2.0-7.7 X10 3/uL Absolute Neut 8.0 LAB L100.2720 Normal 0.83-4.51 X10 3/ul Absolute Lymph 3.90 Performed By: #### L100.0100 ####[facility] [address] [place], [address] Observed: 02/05/2017 Status: F Source: [place] CULTURE, BLOOD (WB) 5:00 PM [facility] BCNo growth in 5 days. Performed By: #### M200.1000 ####[facility] [address] [place], [address] ABDOMEN/PELVIS WITHOUT Observed: 02/05/2017 Status: F Source: TAVO CONT 4:52 PM [facility] [address] [place] [address]Uinnuih/Pelvis without ContMR#: [id number] Acct: [id number]: SERAFINLeticiaASHLY Rep #: [id number]: F 47 From: Onur Nolan DOPCP: Michelle Ferrera MD Status: REG ERStudy: Abdomen/Pelvis without Cont Date of Exam: 02/05/17Exam# [id number] Ordering Dr: Alexx Garcia MDSTUDY: CT ABDOMEN AND PELVIS WITHOUT CONTRASTREASON FOR EXAM: Female, 47 years old. Left flank painRADIATION DOSAGE (If Supplied By Facility): CTDIvol = ( 22.95 ) mGy, DLP =( 1112.24 ) mGycmTECHNIQUE: Transaxial images were obtained from the dome of the diaphragmto the symphysis pubis without oral contrast, and without intravenouscontrast. Sagittal and coronal images were reconstructed.Individualized dose optimization techniques were used for this CT.COMPARISON: None. FINDINGS:The visualized lung bases are unremarkable. The visualized portions of theheart are within normal limits.Normal liver. Large gallstones without evidence of acute cholecystitis.Normal spleen. Normal pancreas.Normal bilateral adrenal glands.Normal right kidney. There is a stone in the left collecting system nearthe UPJ measuring 9.2 mm. No evidence of stone in the left ureter. Mildleft hydronephrosis.Normal visualized stomach. Normal small intestine. Normal colon. Theappendix is visualized and appears normal.Normal abdominal aorta. Normal inferior vena cava. Normalretroperitoneum.Normal urinary bladder. Normal visualized uterus.Normal abdominal wall. Normal osseous structures. ORDER #: [id number] CT/Abdomen/ Pelvis without ContIMPRESSION:Stone in the left collecting system near the UPJ with mild lefthydronephrosis. Large gallstonesElectronically Signed:Onurrylee Nolan, [id number] at 17:57 ESTTel , Service support , Fax FC: Michelle Ferrera MD; Alexx Garcia MD Supervisor Cereal:Signed ,SERUM,HCG QUALI. Collected: Status: F Source: CONCORD 02/05/2017 3:38 PM [facility] TYPE CODE TESTS RESULT OUT OF REFERENCE UNITS RANGE LAB L700.7000 Normal 0-9 Nonpreg Negative HCGSQUAL NEGATIVE LAB L700.6700 Normal =>Qualitati mIU/mL HCG Qual < 1 ve triggr Performed By: #### L700.6800 ####[facility] [address] [place], [address] URINALYSIS, COMPLETE Collected: 02/05/2017 Status: F Source: TAVO 3:38 PM [facility] Order Comment: Order Date: 02/05/17Has pt arrived? YHow was Urine Obtained? JACK PRIZER TO SPECIFY TYPE CODE TESTS RESULT OUT OF RANGE REFERENCE UNITS LAB L400.3000 Normal Yellow COLOR Yellow LAB L400.3050 Normal Clear CLARITY Sl. Cloudy LAB L400.3200 Normal Normal mg/dl GLUCOSE, UR Normal LAB L400.3300 Normal Negative mg/dL BILIRUBIN Negative URINE LAB L400.3400 High Negative mg/dl KETONE UR 5 LAB L400.3465 Normal 1.002-1.030 SP.GR. 1.030 DIPSTX LAB L400.3550 Normal 5.0 - 8.0 pH UR 5.0 LAB L400.3600 High Negative mg/dl PROT DIPSTX 30 LAB L400.3700 High Normal mg/dl UROBILI 1 LAB L400.3750 Normal Negative NITRITE UR Negative LAB L400.3780 High Negative /ul OCCULT 250 BLOOD-UR LAB L400.3800 High Negative /ul LEUK 100 ESTERASE LAB L400.4050 Normal 0-5 /hpf WBC 50-100 SEEN LAB L400.4100 Normal 0-5 /hpf RBC-UA > 100 SEEN LAB L400.4150 Normal 5-10 /hpf SQUAM EPI 5-10 SEEN LAB L400.4300 Normal None Seen /hpf BACTERIA 3+ LAB L400.4350 Normal <or=2+ /hpf MUCUS, 1+ URINE LAB L400.4700 Normal <or=2+ /hpf CA OX 1+ CRYSTAL Performed By: #### L400.0001 ####[facility] [address] [place], [address] Observed: 02/05/2017 Status: F Source: TAVO CULTURE, URINE 3:38 PM [facility] Order Date: 02/05/17 Urine CultureCulture exhibits no growth. Performed By: #### M100.0650 ####[facility] [address] [place], [address] Observed: 02/01/2017 Status: F Source: [facility] 4:18 PM FOUNDATION REPOSITORY . MICRO - MicrobiologyPROCEDURE: Urine Culture [*1] Urine BODY SITE:COLLECTED DATE/TIME: 02/01/2017 16:18 EST RECEIVED DATE/TIME: 02/01/2017 21:50 ESTSTART DATE/TIME: 02/01/2017 21:50 EST FREE TEXT SOURCE:FINAL REPORTSFinal Report []Verified Date/Time/Personnel: 2016 07:29 ESTNo growth at 48 hours.Sensitivity testing not indicated.PRELIMINARY REPORTSPreliminary Report []Verified Date/Time/Personnel: 02/02/2017 07:49 ESTNo growth to datePerforming Locations*1: This test was performed at: [facility], [address] [place] [address], [facility] , [facility] Performed By: #### CUR ####[place] [address] CBC-COMPLETE BLOOD CNT Collected: 10/27/2016 Status: F Source: TAVO NO DIFF 5:40 AM [facility] [place] TYPE CODE TESTS RESULT OUT OF RANGE REFERENCE UNITS LAB L100.1000 Normal 4.4-11.0 K/mm3 WBC 9.1 LAB L100.1200 Normal 4.2-5.4 M/mm3 RBC 4.34 LAB L100.1300 Normal 12.0-15.0 g/dl HGB 12.7 LAB L100.1400 Normal 37-47 % HCT 39.9 LAB L100.1500 Normal 81-99 fL MCV 91.9 LAB L100.1600 Normal 27.0-32.0 pg MCH 29.3 LAB L100.1700 Low 32-36 g/gl MCHC 31.8 LAB L100.1810 Normal 11.6-14.6 % RDW 13.5 CV LAB L100.1820 High 35.1-43.9 fl RDW 45.8 SD LAB L100.1900 Normal 150-450 K/mm3 PLT 195 LAB L100.2000 Normal 6.2-12.0 fl MPV 10.7 Performed By: #### L100.0500 ####[facility] [address] [place], [place], [address] CBC-COMPLETE BLOOD CNT Collected: 10/26/2016 Status: F Source: TAVO NO DIFF 5:08 AM [facility] TYPE CODE TESTS RESULT OUT OF RANGE REFERENCE UNITS LAB L100.1000 Normal 4.4-11.0 K/mm3 WBC 9.3 LAB L100.1200 Normal 4.2-5.4 M/mm3 RBC 4.33 LAB L100.1300 Normal 12.0-15.0 g/dl HGB 12.7 LAB L100.1400 Normal 37-47 % HCT 40.2 LAB L100.1500 Normal 81-99 fL MCV 92.8 LAB L100.1600 Normal 27.0-32.0 pg MCH 29.3 LAB L100.1700 Low 32-36 g/gl MCHC 31.6 LAB L100.1810 Normal 11.6-14.6 % RDW 13.8 CV LAB L100.1820 High 35.1-43.9 fl RDW 47.0 SD LAB L100.1900 Normal 150-450 K/mm3 PLT 187 LAB L100.2000 Normal 6.2-12.0 fl MPV 10.8 Performed By: #### L100.0500 ####[facility] [address] [place], [place], [address] CBC-COMPLETE BLOOD CNT Collected: 10/25/2016 Status: F Source: TAVO NO DIFF 5:02 AM [facility] TYPE CODE TESTS RESULT OUT OF RANGE REFERENCE UNITS LAB L100.1000 High 4.4-11.0 K/mm3 WBC 16.1 LAB L100.1200 Normal 4.2-5.4 M/mm3 RBC 4.44 LAB L100.1300 Normal 12.0-15.0 g/dl HGB 13.3 LAB L100.1400 Normal 37-47 % HCT 40.2 LAB L100.1500 Normal 81-99 fL MCV 90.5 LAB L100.1600 Normal 27.0-32.0 pg MCH 30.0 LAB L100.1700 Normal 32-36 g/gl MCHC 33.1 LAB L100.1810 Normal 11.6-14.6 % RDW 13.4 CV LAB L100.1820 Normal 35.1-43.9 fl RDW 43.8 SD LAB L100.1900 Normal 150-450 K/mm3 PLT 214 LAB L100.2000 Normal 6.2-12.0 fl MPV 11.0 Performed By: #### L100.0500 ####[facility] [address] [place], [address] BASIC METABOLIC Collected: 10/25/2016 Status: F Source: [place] PROFILE (BMP) 5:02 AM [facility] [place] TYPE CODE TESTS RESULT OUT OF RANGE REFERENCE UNITS LAB L501.0100 High 70-110 mg/dL GLU 165 Result Comment: Fasting Glucose result greater than or equal to 126 mg/ dLsuggests DIABETES MELLITUS per A.D.A. criteria. LAB L501.1000 Normal 7-18 mg/dL BUN 16 LAB L501.1100 Normal 0.55-1.02 mg/dL CREAT,SERUM 0.72 Result Comment: The validity of the calculated GFR AND GFRAA in patients over70 years has not been determined. Clinical correlation isessential. LAB L501.1110 Normal >60 mL/min EST GFR 94 Result Comment: Non- GFR Calc LAB L501.1115 Normal >60 mL/min EST GFR - 113 AA Result Comment: GFR Calc LAB L501.1255 Normal ml/min Estimated 85.20 CRCL LAB L501.1300 High 10-20 RATIO BUN/CRE 22.4 LAB L501.2200 Low 8.5-10 mg/dL CA 8.0 .1 LAB L501.5300 Normal 136-14 mmol/L NA 137 5 LAB L501.5600 Normal 3.5-5. mmol/L K 4.4 1 LAB L501.5900 Normal 98-107 mmol/L CL 107 LAB L501.6100 Normal 21.0-3 mmol/L CO2 23.0 2.0 LAB L501.6200 Normal 5-15 GAP 7 Performed By: #### L500.2500 ####[facility] [address] [place], [address] OPERATIVE REPORT Observed: 10/24/2016 Status: F Source: [place] 1:57 PM [facility] [place] [facility] [address] [place], [place] [address]Wyehtqajf Ddqmfj18/01/17 1344MR#: [id number] Acct: [id number]: ASHLY CROSS Rep #: [id number]: 1970 46 From: Fredo Mckeon MDPCP: Bernadette TORREZ,Michelle Status: ADM IN YLocation: MS3 [id number] of OperationDate of Procedure: 10/24/16Pre-Operative Diagnosis: Painful left patellofemoral replacement, malpositioned femurPost-Operative Diagnosis: Painful left patellofemoral replacement, malpositioned femurSurgery/Procedure Performed:: Revision femoral component left partial knee replacementDescription of Surgical Findings::The previous component was proximalized, extended, and internally rotated.brigadier: Darius TellezType of Anesthesia:: GeneralAnesthesiologist: Mini GiraldoicSpecial Medications: 2 g Ancef, 1 g TXA at incision, 1 g TXA closure, 10 mg Decadron, jointcocktail (5 mg Duramorph, 30 mL of 0.5% Ropivicaine, 1000 units of epinephrine, 30 mg ofToradol)Specimen's removed: Separate specimens were sent to microbiology. Suprapatellar pouchmembrane. Femoral membrane 1. Femoral membrane 2Estimated Blood Loss (mL): 25 mLFluids Replaced: 1800 mL crystalloidDescription of Procedure:46-year-old female had patellofemoral replacement with Arthrosurface component in February2016. Patient did well with her right knee with no pain however, with the left knee she hadsignificant pain. X-ray showed lateral subluxation of the patella. CT scan showed internalrotation of the implant. X -rays also appeared to show proximal rotation and extension of thepatellar implant. Patient required narcotic pain medications. After failing physical therapyand treatment by my partner she was referred to me for potential revision. After obtaining theappropriate studies it was felt the patient had a malpositioned implant we did elect to proceedwith revision. Infection was ruled out. Risks and benefits of the surgery were discussed thepatient including but limited to blood loss, DVTs, PEs, neurovascular damage complex, generalrisk of anesthesia, continued pain. Patient was able to sign informed consent and clearancewas obtained.Procedure: On the date of the procedure patient's left leg was marked in the preoperative area. Patientwas taken back to the operating room where she was transferred to the table in supine position.Anesthesia assumed control C-spine airway and remained controlled throughout the mainprocedure. Patient did receive a abductor canal block prior to the procedure. Generalanesthetic was administered and tourniquet was placed in the left upper thigh. Bump was placedunderneath the left hip and the patient was appropriate position. Left lower extremities andprepped in a sterile fashion surgeon scrubbed.Upon reentering the room the left leg was draped in a standard orthopedic fashion. Incisionwas marked out and timeout was called. Everyone agreed upon the side, the site, the procedureto be performed, patient identity and antibiotic given. Esmarch bandage was used toexsanguinate the left lower extremity knee was flexed and he was placed up to 250 mmHg.Incision was taken at the skin subtenons tissue fat down to fascia. Once we identified theprevious arthrotomy and the nonabsorbable sutures a standard parapatellar arthrotomy was made.Careful attention was paid so as not to transect the medial meniscus. Once we are able toevert the patella the patella was identified and found to be appropriately positioned as wasfelt to be the case on preoperative x-rays. I did was then directed towards the trochlea. Thetrochlea. Proximalized and internally rotated. At this time a curved osteotome was used todisengage the Pearson taper. Residual cement was then removed. At this time a central pin wasplaced down the previous anchoring screw. This was seated in the bone and the anchoring screwwas removed. This gave us an idea of the patient's previous position. At this time this wasremoved. All implants were removed 6 L of normal saline were irrigated throughout the woundwith low-pressure lavage. A trial 10 x 5 component was placed without was the appropriateposition more distal on the trochlea and more externally rotated. A new pin was placed. Basedon the new central pin compared to the old central pin as it was replaced in its previousposition we externally rotated the implant an additional 8-10 . The trial appeared to be inappropriate position we elected to proceed with revision to the 5 x 10 component. Using theArthrosurface technique guide the appropriate central and proximal and distal reamers were usedto prepare the bone. Once the bone was adequately repaired all additional cartilage wasremoved. Drill holes were made. We then prepared for the new central screw. A 11 mm centralscrew was prepared for. We then seated the screw the appropriate depth. Once we are happywith the position of the screw we again verified using the trial the appropriate position ofthe implant. Once we are happy with this cement was mixed. Cement was placed around the outeredge of the anticipated area to cement. The Pearson taper was left free of cement. Finalimplant was opened and the 10 x 5 implant was impacted into place. Pressure was held while thecement cured. Once this was done the trochlea appeared in a more [place] position and thepatella tracked well. 500 mL dilute Betadine solution was used to lavage out the wound for 3minutes. 1 L of normal saline was irrigated throughout the wound. #1 Vicryl was used to closethe arthrotomy. 2-0 Vicryl and skin nazanin were used for skin closure. Sterile silverdressing was placed, compressive dressing was placed. Tourniquet was let down. Patient alsoreceived joint cocktail prior to closure. Patient was awakened by anesthesia and transferredto PACU for recovery in stable condition.This operative plan: Patient be placed on aspirin for DVT prophylaxis. She will be weight-bearas tolerated with activity as tolerated. She will get physical therapy as outpatient. Shewill follow-up in the office in 2 weeks for wound check and staple removal.Grafts/Implants Used: Levon surface 5.0 x 10 trochlea component- ComplicationsNone- Admit VTE DocumentationVTE Present on Admission: NoVTE Mechan Device Prophylaxis: SCD's, Thigh High RODOLFO HoseVTE Pharm Prophylaxis ordered?: Yes10/24/16 0897 <Electronically signed by Fredo Mckeon MD>Date ____ Fredo Mckeon MDCC: Michelle Ferrera MD; Fredo Mckeon MD Signed KNEE 1 OR 2 VIEWS Observed: 10/24/2016 Status: F Source: [place] 1:25 PM [facility] [place] [facility] [address] [place], [place] [address]Qyqxdgv 4dKnee 1 or 2 ViewsMR#: [id number] Acct: [id number]: ASHLY CROSS Rep #: [id number]: 1970 F 46 From: Deloris Jenkins MDPCP: Michelle Ferrera MD Status: ADM INStudy : Knee 1 or 2 Views Date of Exam: 10/24/16Exam# [id number] Ordering Dr: Fredo Mckeon MDSTUDY: X-RAY - LEFT KNEEREASON FOR EXAM: Female, 46 years old. Post operative assessmentTECHNIQUE: Three view(s) of the knee.COMPARISON: None. FINDINGS:There is a prosthesis in the distal femur. Normal visualized proximaltibia and fibula. Normal proximal tibiofibular articulation.Normal medial femorotibial compartment. Normal lateral femorotibialcompartment. There are surgical or degenerative changes in thepatellofemoral articulation. There is fullness and air above the patella.There is air in the soft tissues around the joint. There are surgicalstaples anteriorly. ORDER #: [id number] RAD/Knee 1 or 2 ViewsIMPRESSION:There are surgical changes in the left knee after hemiarthroplasty orrevision.Electronically Signed:Deloris Jenkins MD at 16:04 EDTTel [phone], Service support , HL: Michelle Ferrera MD; Fredo Mckeon MD Supervisor Cereal:Signed ,URINE Collected: 10/24/2016 Status: F Source: [place]AVO 10:12 AM [facility] [place] TYPE CODE TESTS RESULT OUT OF REFERENCE UNITS RANGE LAB L400.8000 Normal Negative HCGUQUAL Negative Result Comment: Very dilute urine specimens, as indicated by a low specificgravity, may not contain guest service representative levels of hCG.If is still suspected, a first morning urinespecimen should be collected 48 hours later and tested. Performed By: #### L400.7600 ####[facility] [address] [place], [place], [address] Observed: 10/24/2016 Status: F Source: TAVO CULTURE, DEEP WOUND 12:00 AM [facility] [place] Comments: SUPRA PATELLA POUCHGram StainGram Stain 2+ Red Blood Cells Rare White Blood Cells No organisms seen Wound CultureNo growth aerobically. Cult, AnaerobicNo anaerobic bacteria isolated. Performed By: #### M100.1500 ####[facility] [address] [place], [place], [address] Observed: 10/24/2016 Status: F Source: TAVO CULTURE, DEEP WOUND 12:00 AM [facility] [place] Comments: FEMORAL MEMBRANE #1Gram StainGram Stain Rare White Blood Cells No organisms seen Wound CultureNo growth aerobically. Cult, AnaerobicNo anaerobic bacteria isolated. Performed By: #### M100.1500 ####[facility] [address] [place], [place], [address] Observed: 10/24/2016 Status: F Source: TAVO CULTURE, DEEP WOUND 12:00 AM [facility] [place] Comments: FEMORAL MEMBRANE #2Gram StainGram Stain No White Blood Cells No organisms seen Wound CultureNo growth aerobically. Cult, AnaerobicNo anaerobic bacteria isolated. Performed By: #### M100.1500 ####[facility] [address] [place], [place], [address] Observed: 10/24/2016 Status: F Source: TAVO ACID FAST BACT 12:00 AM [facility] [place] Comments: SUPRA PATELLA POUCH AFB Smear/Fluor TESTING PERFORMED AT [facility]. ORIGINAL REPORT ON FILE IN LAB CONTAINS ADDITIONAL TEST SITE INFORMATION. Smear, Acid Fast Tissue Grinding Smear: Negative AFB Cult TESTING PERFORMED AT [facility]. ORIGINAL REPORT ON FILE IN LAB CONTAINS ADDITIONAL TEST SITE INFORMATION. Culture, Acid Fast NO ACID-FAST BACILLI ISOLATED AFTER 6 WEEKS. Performed By: #### M300.1000, M600.2200 ####[facility] [address] [place], [place], [address] Observed: 10/24/2016 Status: F Source: TAVO FUNGUS STAIN 12:00 [facility] [place]POS[place] Comments: SUPRA PATELLA POUCH [address]ung[address] 8136 TESTING PERFORMED AT [facility]. ORIGINAL REPORT ON FILE IN LAB CONTAINS ADDITIONAL TEST SITE INFORMATION. Fungus Stain No yeast or mold observed. Performed By: #### M300.1000, M600.2200 ####[facility] [address] [facility] [place], [address] Observed: 10/24/2016 Status: F Source: TAVO ACID FAST BACT 12:00 [facility] [place] CULT/SM REPOSITORY Comments: FEMORAL MEMBRANE #2 AFB Smear/Fluor TESTING PERFORMED AT [facility]. ORIGINAL REPORT ON FILE IN LAB CONTAINS ADDITIONAL TEST SITE INFORMATION. Smear, Acid Fast Tissue Grinding Smear: Negative AFB Cult TESTING PERFORMED AT [facility]. ORIGINAL REPORT ON FILE IN LAB CONTAINS ADDITIONAL TEST SITE INFORMATION. Culture, Acid Fast NO ACID-FAST BACILLI ISOLATED AFTER 6 WEEKS. Performed By: #### M300.1000, M600.2200 ####[facility] [address] [place], [id number] Observed: 10/24/2016 Status: F Source: TAVO FUNGUS STAIN 12:00 [facility] [place] REPOSITORY Comments: FEMORAL MEMBRANE #[address] TESTING PERFORMED AT [facility]. ORIGINAL REPORT ON FILE IN LAB CONTAINS ADDITIONAL TEST SITE INFORMATION. Fungus Stain No yeast or mold observed. Performed By: #### M300.1000, M600.2200 ####[facility] [address] [place], [id number] Observed: 10/24/2016 Status: F Source: TAVO ACID FAST BACT 12:00 [facility] [place] CULT/SM REPOSITORY Comments: FEMORAL MEMBRANE #1 AFB Smear/Fluor TESTING PERFORMED AT [facility]. ORIGINAL REPORT ON FILE IN LAB CONTAINS ADDITIONAL TEST SITE INFORMATION. Smear, Acid Fast Tissue Grinding Smear: Negative AFB Cult TESTING PERFORMED AT [facility]. ORIGINAL REPORT ON FILE IN LAB CONTAINS ADDITIONAL TEST SITE INFORMATION. Culture, Acid Fast NO ACID-FAST BACILLI ISOLATED AFTER 6 WEEKS. Performed By: #### M300.1000, M600.2200 ####[facility] [address] [place], [id number] Observed: 10/24/2016 Status: F Source: TAVO FUNGUS STAIN 12:00 [facility] REPOSITORY Comments: FEMORAL MEMBRANE #[address] TESTING PERFORMED AT [facility]. ORIGINAL REPORT ON FILE IN LAB CONTAINS ADDITIONAL TEST SITE INFORMATION. Fungus Stain No yeast or mold observed. Performed By: #### M300.1000, M600.2200 ####[facility] [address] [place], [address] 12 LEAD ELECTROCARDIOGRAM Observed: 10/10/2016 Status: F Source: [place] 2:42 PM [facility] [place] [facility] [address] [place], [place] [address]MWI - SD10/04/16 1437MR#: [id number] Acct: [id number]: ASHLY CROSS Rep #: [id number]: 1970 46 From: Wild Lord MDAttending Dr: Fredo Mckeon MD Status: PRE INOrdering Dr: Fredo Mckeon MD Date: 10/04/16Location: ACINP Sex: F CAdmitted:Test Reason :Blood Pressure : / mmHGVent. Rate : 063 BPM Atrial Rate : 063 BPMP-R Int : 132 ms QRS Dur : 088 msQT Int : 388 ms P-R-T Axes : 031 013 016 degreesQTc Int : 397 msNormal sinus rhythmNormal ECGConfirmed by WILD LORD ([id number]), newspaper copy editor GILMAR ZENG ([id number]) on 10/10/2016 2:42:25 PMReferred By: LIV LUKE Confirmed By:WILD LORD 1442Date Wild Lord MDCC: Wild Lord MD; Michelle Ferrera MD Date Dictated: 10/04/16 1437Date Transcribed: 10/04/16 1437Transcriptionist:Signed BASIC METABOLIC Collected: 10/04/2016 Status: F Source: [place]AVO PROFILE (BMP) 3:45 PM [facility] [place] TYPE CODE TESTS RESULT OUT OF RANGE REFERENCE UNITS LAB L501.0100 Normal 70-110 mg/dL GLU 105 LAB L501.1000 Normal 7-18 mg/dL BUN 13 LAB L501.1100 Normal 0.55-1.02 mg/dL 0.58 CREAT,SERUM Result Comment: The validity of the calculated GFR AND GFRAA in patients over70 years has not been determined. Clinical correlation isessential. LAB L501.1110 Normal >60 mL/min EST GFR 120 Result Comment: Non- GFR Calc LAB L501.1115 Normal >60 mL/min EST GFR - 146 AA Result Comment: GFR Calc LAB L501.1255 Normal ml/min Estimated 105.77 CRCL LAB L501.1300 High 10-20 RATIO BUN/CRE 22.6 LAB L501.2200 Normal 8.5-10 mg/dL CA 8.7 .1 LAB L501.5300 Normal 136-14 mmol/L NA 136 5 LAB L501.5600 Normal 3.5-5. mmol/L K 3.7 1 LAB L501.5900 Normal 98-107 mmol/L CL 104 LAB L501.6100 Normal 21.0-3 mmol/L CO2 26.0 2.0 LAB L501.6200 Normal 5-15 GAP 6 Performed By: #### L500.2500, L100.0100 ####[facility] [address] [place], [address] CBC W/DIFF, AUTOMATED Collected: 10/04/2016 Status: F Source: TAVO 3:45 PM [facility] [place] TYPE CODE TESTS RESULT OUT OF RANGE REFERENCE UNITS LAB L100.1000 Normal 4.4-11.0 K/mm3 WBC 9.1 LAB L100.1200 Normal 4.2-5.4 M/mm3 RBC 5.05 LAB L100.1300 High 12.0-15.0 g/dl HGB 15.2 LAB L100.1400 Normal 37-47 % HCT 45.8 LAB L100.1500 Normal 81-99 fL MCV 90.7 LAB L100.1600 Normal 27.0-32.0 pg MCH 30.1 LAB L100.1700 Normal 32-36 g/gl MCHC 33.2 LAB L100.1810 Normal 11.6-14.6 % RDW 13.8 CV LAB L100.1820 High 35.1-43.9 fl RDW 45.6 SD LAB L100.1900 Normal 150-450 K/mm3 PLT 226 LAB L100.2000 Normal 6.2-12.0 fl MPV 10.3 LAB L100.2100 Normal 47-70 % NEUT% 58.1 LAB L100.2200 Normal 19-41 % LY% 32.6 LAB L100.2300 Normal 0-10 % MONO% 6.5 LAB L100.2400 Normal 0-5 % EO% 2.1 LAB L100.2500 Normal 0-1 % BASO% 0.6 LAB L100.2550 Normal 0.0-0.9 % IM 0.100 GRAN % Result Comment: IG% - Immature Granulocytes (promyelocytes, myelocytes andmetamyelocytes) > 1% indicates that a LEFT SHIFT is Present. LAB L100.2620 Normal 2.0-7.7 X10 3/uL Absolute Neut 5.3 LAB L100.2720 Normal 0.83-4.51 X10 3/ul Absolute Lymph 2.96 Performed By: #### L500.2500, L100.0100 ####[facility] [address] [place], [place], [id number] Observed: 10/04/2016 Status: C Source: [place] MRSA/SAID SCREEN 3:45 PM [facility] [place] RESULTS CALLED TO GRACIELA AT [facility] 10/06/16 1414 Lolis Linton. REPORT READ BACK BY SAME. Copy of report sent to Infection Control Printer MS#[id number] 10/06/16 Devyn9 CRIS. MRSA/SAID SCRNS. AUREUS S. aureus PositiveMRSA MRSA Negative Performed By: #### M100.651 ####[facility] [address] [facility] [place], [place], [address] CBC (AO) Collected: 09/20/2016 Status: F Source: [facility] 9:39 [facility] REPOSITORY TYPE CODE TESTS RESULT OUT OF REFERENCE UNITS RANGE LAB WBC(LOINC) 4.60-10.80 10 3/mcL WBC 10.00 LAB RBCCT(LOIN 4.20-5.40 10 6/mcL C) RBC 5.24 LAB HGB(LOINC) 12.0-16.0 G/dL Hemoglobin 15.5 LAB HCT(LOINC) 37.0-47.0 % Hematocrit 46.9 LAB MCV(LOINC) 80.0-94.0 fL MCV 89.5 LAB MCH(LOINC) 27.0-31.2 pg MCH 29.6 LAB MCHC(LOINC 33.0-37.0 G/dL ) MCHC 33.1 LAB RDW(LOINC) 11.5-14.5 % RDW 14.2 LAB PLT(LOINC) 130-400 10 3/mcL Platelet 260 Count LAB MPV(LOINC) 7.4-10.4 fL Mean Platelet 8.6 Volume LAB LYM(LOINC) 10.0-50.0 % Lymphocyte % 29.1 LAB MON(LOINC) 1.7-13.0 % Monocyte % 4.3 LAB CRIS(LOINC) 37.0-80.0 % Neutrophil % 64.3 LAB EO(LOINC) 0.0-7.0 % Eosinophil % 1.2 LAB BAS(LOINC) 0.0-2.5 % Basophil % 1.1 LAB ABLYM(LOIN 0.77-3.85 10 3/mcL C) Lymphocyte, 2.90 Absolute LAB RADHA(LOINC 0.15-1.00 10 3/mcL ) Monocyte, 0.40 Absolute LAB ANEU(LOINC High 2.85-6.16 10 3/mcL ) Neutrophil, 6.40 Absolute LAB AEOS(LOINC 0.00-0.40 10 3/mcL ) Eosinophil, 0.10 Absolute LAB ABAS(LOINC 0.00-0.19 10 3/mcL ) Basophil, 0.10 Absolute Performed By: #### CBCO ####[facility] [address] [address] ERYTHROCYTE SED RATE Collected: 09/20/2016 Status: F Source: [facility] 9:39 [facility] REPOSITORY TYPE CODE TESTS RESULT OUT OF REFERENCE UNITS RANGE LAB ESR(LOINC) 0-20 mm/hr Erythrocyte Sed 3 Rate Performed By: #### ESR ####[facility], [address] [place] [address] C-REACTIVE PROTEIN Collected: 09/20/2016 Status: F Source: [employer] 9:39 [facility] REPOSIT[facility] TYPE CODE TESTS RESULT OUT OF REFERENCE UNITS RANGE LAB CRP(LOINC) 0.00-0.80 mg/dL 0.76 C-Reactive Protein Performed By: #### CRP ####[facility], [address] [place] [address] CT LOW EXT W/O Observed: 09/15/2016 Status: C Source: [employer] CONTRAST LEFT 7:35 AM SYSTEM REPOSITORY Patient Name: ASHLY CROSS CT Exam Date/Time 09/14/2016 14:02:[address] Low Ext w/o Contrast Left Ordering Physician MD MCKEON STEVEN ALAN Accession Number [id number] CPT4 Codes 88026 () Reason For Exam lt knee tibial tuberchlear groove angle pain Addendum Examination was reviewed at request of Dr. Mckeon to evaluate for the tibial tubercle trochlear groove offset. Patient is postoperative with patellofemoral resurfacing arthroplasty. 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 This configuration in addition to postsurgical alteration of the groove make accurate measurement difficult. TT-TG offset closely estimated at 1.2 cm. There is a small joint effusion and patella is slightly laterally subluxed. Report Dictated on Final Addendum Addendum Dictating Physician: MD KAPOOR ANTHONY J Signed Date and Time: 7:47 am Signed by: MD KAPOOR ANTHONY J Transcribed Date and Time: 09/15/2016 7:48 Report CLINICAL INFORMATION: Left knee pain. Prior partial left knee arthroplasty. Trochlear groove pain. CT left knee without contrast with 3-D reconstructions: Volume acquisition CT images were obtained without intravenous contrast with axial, coronal and sagittal 2-D reconstructions. Additional 3-D survey surface shaded images of the left knee were concurrently generated on an independent workstation to better visualize gross skeletal anatomy. There are no related prior examinations at this institution for correlation/comparison. There is been a patellofemoral joint arthroplasty consisting of metallic trochlear and nonmetallic patellar components. There is beam hardening artifact from the trochlear component which obscures bone detail. The patella appears to be laterally subluxed relative to two the femoral trochlea. The prosthetic components appear to be in anatomic location. There is no evidence of associated fracture or grabiel dislocation. No definite abnormal periprosthetic hypodensity is identified on limited evaluation. There is mild medial knee joint compartment narrowing with small osteophytes. There are small hyperdensities in the lateral knee joint compartment which is grossly well maintained. No bone erosion or periosteal reaction is seen. There is no fracture of the distal femur or proximal tibia or fibula. There is a small hyperdensity in the medial tibial plateau most likely a cortical bone island. No other areas of abnormal bone density are identified. There is no obvious bursal effusion. IMPRESSION: 1. Patellofemoral joint arthroplasty as described. 2. Mild lateral subluxation of the patella relative to the femoral trochlea. 3. Mild degenerative changes of the medial knee joint compartment. 4. Small hyperdensities in the lateral knee joint compartment of uncertain etiology. 5. No other acute or significant abnormality. Report Dictated on Workstation: [id number] Final Dictating Physician: MD BULL HARLAN Signed Date and Time: 2016 2:34 pm Signed by: MD BULL HARLAN Transcribed Date and Time: 2016 2:35 EMERGENCY DEPARTMENT Observed: 08/28/2016 Status: F Source: [place] SUMMARY 1:05 AM [facility] [place] [facility] [address] [place], [place] [address]Dujkvpdqh Department SummaryMR#: [id number] Acct: [id number]: ASHLY CROSS Rep #: [id number]: 1970 46 From: Deloris Drummond MDPCP: Michelle Ferrera MD Status: DEP ERDATE OF SERVICE: 08/26/2016CHIEF COMPLAINT:Left leg pain.AGUERO HISTORY:The patient is a 46-year-old female who had bilateral [place] surgeries [place]. 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 She states she has left calf pain does not radiate up to the posterior left thighfor the past 3 days. She denies any paresthesias.PHYSICAL EXAMINATION:VITAL SIGNS: Unremarkable.GENERAL: The patient is in no acute distress.HEART: Regular.LUNGS: Clear.ABDOMEN: Soft, nontender.EXTREMITIES: Lower extremity examination reveals 2+ edema of the left leg similar to theright. She does have reproducible tenderness in the posterior left calf and in theposterior left thigh. There are no palpable cords. No skin changes noted.HOSPITAL COURSE:The patient did drive herself here. I did not give her any strong pain medication whilein the Emergency Room. Venous ultrasound shows no evidence of a DVT. There is a smallsaphenous superficial clot noted. The patient is instructed to use warm compresses tothis area. She will be given 12 tabs of Percocet for pain. If not improved, she is tofollow up with her orthopedic surgeon, Dr. Johnson or her family physician.DISPOSITION:Discharge.IMPRESSION:Superficial clot, left leg.Deloris Drummond MDT: NTSJOB: [id number] <Electronically signed by Deloris Drummond MD>Date Deloris Drummond [facility] Signature (If Indicated): Date ___CC: Michelle Ferrera MD Date Dictated: 08/26/16 1202Date Transcribed: 1202Transcriptionist:Signed VENOUS DUPLEX LOWER Observed: 08/27/2016 Status: F Source: [place]CORD EXTREMITY 11:59 PM [facility] [place] [id number] ALEM ANDRADE [address]Weikil Duplex US, Mkflifsiaa99/03/17 1114#: [id number] Acct: [id number]: ASHLY CROSS Rep #: [id number]: 1970 46 From: Eddy Richter Dr: Status: DEP EROrdering Dr: Deloris Drummond MD Date: 08/26/16Location: ED Sex: F CAdmitted:Reason For Study: LLE PainRIGHT LEFTCFV is compressible, spontaneous, phasic, GSV is normal.competent and demonstrates normal CFV is compressible, spontaneous, phasic,augmentation. competent, and demonstrates normalProcedure augmentation.Exam performed portable in ED. FV is compressible, spontaneous, phasic,A preliminary report was called and/or faxed competent and demonstrates normalto Dr. Drummond. augmentation.POP V is compressible, spontaneous,phasic,competent and demonstrates normalaugmentation.T/P Trunk is compressible.PTV is compressible.LT PerV is compressible.Lt SSV is dilated and non compressibleconsistent with acute SVT.Interpretation SummaryDeep veins of the left lower extremity are patent and compressible segmentally. There is noevidence of left lower extremity deep vein thrombosis. Valvular competence appears intactwithinthe proximal deep venous system on the left . The left greater saphenous vein appears patentandcompressible segmentally. Acute superficial thrombophlebitis is noted in the left smallsaphenousvein. Ordering Physician: Deloris DrummondReferring Physician: Deloris rDummondPerformed By: Yun Spangler RDCS, RVT 08/27/16 2358Date Eddy Du MDCC: Deloris Drummond MD; Michelle Ferrera MD Date Dictated: 08/26/16 1114Date Transcribed: 08/27/16 2358Transcriptionist:Signed DISCHARGE INSTRUCTION Observed: 08/26/2016 Status: F Source: TAVO 12:02 PM [facility] [place]ITALMedical Records Nhsklgguve7163 [place] [id number] Aggugvhumdi68/03/17 1159MR#: [id number] Acct: [id number]: AMERICAASHLY Rep #: [id number]: 1970 46 From: Deloris Drummond MDPCP: Mihcelle Ferrera MD Status: REG ERED Disposition- Plan for ED Patient:Disposition: Home or Assisted LivingChief Complaint: Lower Extremity InjuryInstructions: ED Phlebitis SuperficialPrescriptions: Oxycodone HCl/Acetaminophen [Percocet 5/325] 1 - 2 tablet PO Q6H PRN PRN #12 tabletPRN Reason: PainReferrals:Michelle Ferrera MD [Primary Care Provider] - 1 Week if not improvingWhat to do if you have ProblemsFor any increased pain, shortness of breath, bleeding, nausea or vomiting, chest pain, or anyunexpected problems, contact your Primary Care Provider. Call [facility] ([phone])or report to the closest Emergency Room.Call 911 if necessary.08/26/16 1202 <Electronically signed by Deloris Drummond MD>Date Deloris Drummond MDCosign Signature (If Indicated): Date CC: Michelle Ellington/ CYNDI Observed: 06/01/2016 Status: F Source: TAVO 4:07 PM [facility] [place]ITALMedical [facility] [id number] [place] ID [id number] AND P w/ Hcggwi26/23/16 1113#: [id number] Acct : [id number]: ASHLY CROSS Rep #: [id number]: 1970 46 From: Catherine Kellogg RADIATION ONCOLOGY MANAGER-CPCP: Bernadette TORREZ,Michelle Status: DIS IN YLocation: RU [id number] by Frankie Smith MD on 03/17/16 at 1536Documentation of Koby Kellogg PATENT LEATHER SORTER reviewed and confirmed.Patient is a pleasant 46 year old right handed female who is now being [facility] the [facility]re[facility], per the recommendations of evaluating therapists with patient s/p bilateralpatellofemoral arthro resurfacing due to degenerative joint disease. The procedure wasperformed by Dr. Johnson of the [facility]. Per patient she has been having discomfort andpain in the bilateral knees over the past 2 years. She reports that she failed conservativetherapies including PT, non-steroidal and injections. As a result of worsening symptomsincluding their impact on her ability to perform ADLs, patient underwent procedure above. Theprocedure itself was reportedly without complications.Currently she complains of 6/10 pain even at rest. She appears fearful of taking part intherapies and getting out of bed, in that pain may be exacerbated. Duragesic patch was addedapproximately 4 hours ago in addition to her Keatchie prn. She also reports constipation sincesurgery. 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 Final goal of rehab stay will be for patient to return home at or nearher prior level of functional independence.- Physical ExamGeneral: Alert, Oriented x3, CooperativeHEENT: Atraumatic, PERRLA, EOMI, Fundi without papilledemaOral: Moist MucosaNeck: Supple, No JVDLungs: Clear to auscultation, Normal air movement, No rhonchi, No wheeze, No ralesCardiovascular: Regular rate, Regular Rhythm, No murmursAbdomen: Bowel Sounds Present, Soft, Non Tender, Non-Distended, ObeseExtremities: No edema, No Calf TendernessSkin: No rashesMusculoskeletal: No Tenderness to Palpation of Joints or ExtremitiesLymphatic: No Cervical, Supraclavicular, or Inguinal AdenopathyNeurological: Cranial nerves II-XII grossly intact, Motor Exam 5/5 strength in uppers, butguarded on strength exam in lowers secondary to pain. Light touch and pin intact throughout.FNF/AKASH intact, no tremors.Psych/Mental Status: AnxiousA/PThe patient is a 46 YOM with who was admitted to the RU from [facility] following bilateralpatellofemoral arthro-resurfacing completed on 03/14/[address] Johnson. Prior to this admissionshe was functionally independent. She was admitted to the RU to participate in >3 hours oftherapy daily with the goal of therapy to return home near her prior level of functionalindependence. While in the RU her other medical conditions will be monitored.* debility related to above:PT/OT* pain: pt has been complaining of significant pain, fentanyl started 03/17, Keatchie prn* bowel:Senna S* DVT prophylaxis: Lovenox complete 03/27, will start ASA 325 on 03/28* weight: 118.9KG, BMI 45.7, Morbidly obese, recommend weight loss* s/p bilateral knee surgery: f/y 03/22 at 1:35, nursing will contact office, Surgeon contacted, will start CPM* GI protection: protonix * S/s of OSAS reported by Koby Kellogg during interview: Will get outpt PSG.* Morbid Obesity (BMI>40): Encouraged weight loss. Nutrition consulted.* tobacco abuse: nicotine patch; encouraged cessation.03/17/16 1536 <Electronically signed by Frankie Smith MD>Date Frankie Smith [facility] : Catherine Kellogg RADIATION ONCOLOGY MANAGER; Michelle Ferrera MD; Frankie Smith MD *SignedProblem List(1) Morbid obesityStatus: ChronicQualifiers:Obesity type: due to excess calories Qualified Code(s): E66.01 - Morbid (severe) obesitydue to excess calories(2) S/ P arthroscopic knee surgeryStatus: Acute Comment: bilateral patellofrmoral resurfasing and arthroplastic ibtrigxusbicp84/20/16 at [facility] by Dr JohnsonHistory of Present IllnessDate of Admission: 03/16/16Chief Complaint: debility following bilateral patellofemiral arthroresurfasingThe patient is a 46 year old female who was [facility] [place] [facility] following bilateral patellofemoral arthro resurfacing related to DJDperformed on 03/14/[address] Johnson. She has been experiencing increased knee pain for the past2 years and has failed conservative therapy. After conversation with Dr Johnson she electedsurgical intervention and the surgery was completed on 03/14. Postoperatively she hasexperienced a significant amount of pain, that has limited her mobility.Prior to this admission Ashly lived with her spouse in a 2 story home. She worked as an [employer] Grounds [employer] . Currently she is afraid to get out of bed due to pain, she has not had a bowelmovement yet. She has significantly limited mobility to knees mainly due to anxiety related topain.Past Medical HistoryPast Medical History (Chronic Problems):Chronic ProblemsMorbid obesity (Chronic)AllergiesNo Known Allergies Allergy (Verified 03/16/16 21:14)Home Medications:Ambulatory OrdersMedication Instructions RecordedAcetaminophen [Tylenol] 650 mg PO Q6H PRN PRN 03/16/16Aspirin 325 mg PO DAILY@0800 03/16/16Enoxaparin Sodium [Lovenox] 40 mg SQ DAILY 03/16/16Naproxen [Naprosyn] 500 mg PO Q8H PRN PRN 03/16/16Oxycodone HCl/Acetaminophen 1 - 2 tablet PO Q4H PRN PRN 03/16/16[Percocet 5/325]Pantoprazole Sodium [Protonix] 40 mg PO DAILY 03/16/16urgical History: arthroscopy, knee - 2014Psychiatric History: No pertinent psych hxGYN History: No pertinent REFUELING RAMPMAN historyLives: Spouse/ Significant OtherSmoking Status: Current every day smokerTobacco Use: Cigarettes - 20 pack year historyAlcohol: NoneDrugs: None- *Family History MaternalHistory Items: Diabetes PaternalHistory Items: - - age 57 sepsisReview of SystemsConstitutional: Denies: Anorexia, Chills, FeverEyes: Denies: Blurred visionHEENT: Denies: Difficulty Hearing, Difficulty SwallowingCardiovascular: Denies: Chest Pain, Chest Pressure, Chest TightnessRespiratory: Denies: Cough, Shortness of BreathGastrointestinal: Reports: Constipation. Denies: Abdominal PainGenitourinary: Denies: Dysuria, HematuriaGynecological: Denies: Sexual concernsMusculoskeletal: Reports: Leg PainSkin: Denies: Skin ChangesNeurological: Denies: Difficulty swallowing, Headaches, Incoordination, Numbness, TinglingPsychiatric: Reports: Anxiety. Denies: DepressionEndocrine: Denies: Change in Body HabitusHematologic/ Lymphatic: Reports: Hx of blood clot - hx of superficial clot after veinresurfacing in past. Denies: Easy Bruising, Easy BleedingVTE Information - Inpt OnlyVTE Present on Admission : NoVTE Mechan Device Prophylaxis: Knee High RODOLFO HoseVTE Pharm Prophylaxis ordered?: YesPatient Problems:Active and Suspected ProblemsS/P arthroscopic knee surgery (Acute)bilateral patellofrmoral resurfasing and arthroplastic chondroplasty at [facility] by Dr Johnson- Physical ExamGeneral: Alert, Oriented x3, CooperativeHEENT: Atraumatic, PERRLA, EOMIOral: Moist MucosaNeck: Supple, No JVDLungs: Clear to auscultation, Normal air movement, No rhonchi, No wheeze, No ralesCardiovascular: Regular rate, Regular Rhythm, No murmursAbdomen: Bowel Sounds Present, Soft, Non Tender, Non-Distended, ObeseExtremities: No edema, No Calf TendernessSkin: No rashesMusculoskeletal: No Tenderness to Palpation of Joints or ExtremitiesLymphatic: No Cervical, Supraclavicular, or Inguinal AdenopathyNeurological: Cranial nerves II-XII grossly intact, Motor Exam 5/5 strength throughoutPsych/Mental Status: AnxiousVital SignsTemp Pulse Resp BP Pulse Ox97.9 F 81 18 116/67 07:36 03/17/16 07:36 03/17/16 07:36 07:36 03/17/16 07:36Oxygen Delivery Method Room AirWeight: 118.9 kgBody Mass Index (BMI) 45.7Intake and Output for Last 24 Hours03/15/16 03/16/16 03/17/1623:59 23:59 23:59Intake Total 240Output Total 300 300Balance -300 -60Laboratory Tests Past 24 Hrs03/17/16 03/17/1605:10 05:10WBC 10.4RBC 4.52Hgb 13.4Hct 41.2MCV 91.2MCH 29.6MCHC 32.5RDW 13.3RDW Differential 44.1 HPlt Count 233MPV 10.3Sodium 143Potassium 3.7Chloride 110 HCarbon Dioxide 29.0Anion Gap 4 LBUN 18Creatinine 0.60Estim Creat Clear Calc 97.95Est GFR (MDRD) Af Amer 140Est GFR (MDRD) Non- Af 116BUN/Creatinine Ratio 30.2 HGlucose 83Calcium 7.9 LAssessment/PlanActive and Suspected ProblemsS/P arthroscopic knee surgery (Acute)bilateral patellofrmoral resurfasing and arthroplastic chondroplasty 03/14/16 at [facility] by Dr Cortés patient is a 46 YOM with who was admitted to the RU from [facility] following bilateralpatellofemoral arthro-resurfacing completed on 03/14/[address] Johnson. Prior to this admissionshe was functionally independent. She was admitted to the RU to participate in >3 hours oftherapy daily with the goal of therapy to return home near her prior level of functionalindependence. While in the RU her other medical conditions will be monitored.* debility related to above:PT/OT* pain: pt has been complaining of significant pain, fentanyl started by Dr Smith, 03/17* bowel: Senna S* DVT prophylaxis: Lovenox complete 03/27, will start ASA 325 on 03/28* weight: 118.9KG, BMI 45.7, Morbidly obese, recommend weight loss* s/p bilateral knee surgery: f/ y 03/22 at 1:35, nursing will contact office, Surgeon contacted, will start CPM* GI protection: protonix* JACK: does not ear CPAP* tobacco abuse: nicotine patch 1147 <Electronically signed by Catherine DE LA ROSAC>Date Catherine Kellogg NP-03/17/16 1525<Electronically signed by Frankie Smith MD>Cosigner Signature (if applicable): Date Frankie Smith MDCC: Catherine Kellogg NP; Michelle Ferrera MD; Frankie Smith MD Signed ALLERGIES ALLERGIES DATE TYPE / CODE NAME / CODE REACTION SEVERITY SOURCE 04/23/2017 Drug No Known Unknown [facility] Allergy/4160 Allergies/F00 Hospital 02543(SNOMED 3060941(RXNOR Repository CT) M) 02/05/2017 Drug No Known [facility] Allergy/4160 Allergies/F00 Hospital 80449(SNOMED 0091981(RXNOR Repository CT) M) ENCOUNTERS ENCOUNTERS ADMIT/DISCHARGE ACCOUNT NUMBER ADMITTING ENCOUNTER LOCATION SOURCE CLASS 05/09/2017 [id number] Malik[place] En[place] [facility] ding:ACINPRo Repository om: AC-TBABed: 2 04/23/2017 [id number] Ambulatory BMSBuilding: Tavo [facility] Repository 04/01/2017/04/01/19 [id number] Emergency Tavo [place] [facility] ding:ED Repository 02/14/2017/02/15/20 [id number] Ambulatory [place] [facility] ding:SDCRoom Repository : AC11 02/05/2017/02/06/20 [id number] Emergency [place] [facility] ding:ED Repository 02/01/2017/02/06/20 [id number] Ambulatory BBuilding:DR [place] 17 OP [facility] Repository 12/01/2016/12/02/19 [id number] Emergency BBuilding:MINI [place] 17 [facility] Repository 10/24/2016/10/28/19 [id number] Malik, [place]patient [place] 17 Fred[place] Encounter [facility] ding:VB4Neju Repository : DK840Sow: 1 09/20/2016/09/21/19 [id number] Ambulatory [address] Health :AB [facility] Repository 09/20/2016/09/21/19 [id number] [facility] Repository 09/14/2016 [id number] Ambulatory [facility] Repository 08/26/2016/08/27/19 [id number] Emergency [place] [facility] ding:ED Repository 03/16/2016/03/28/19 [id number] Smith, Inpatient [place] Tavo 17 Frankie Encounter [facility] ding:RURoom: Repository FM432Fte: 1 PAYERS PAYERS ENCOUNTER GUARANTOR PAYER SUBSCRIBER SOURCE 05/09/2017 ASHLY Primary ASHLY Tavo [id number] N Insurance:CARESOURCEP [facility] Number: [id number] [place], [place] [id number] Repository 67283Lze: (330) Date:2017-04-02 O [phone] () [address]ATTN: [place] [address]LB: 05/09/2017 Secondary NOT GIVENUNK [place] Insurance:SELF PAY [facility] Number: Effective Repository Date:2017-04-02 04/23/2017 ASHLY Primary ASHLY Tavo [id number] N Insurance:CARESOURCEP [facility] Number: [id number], [place] [id number] Repository 233[address]Nfv: (330) Date:2017-04-02P O [phone] (HP) [address]ATTN: [place] [address]BO: 04/23/2017 Secondary NOT GIVENUNK [place] Insurance:SELF PAY [facility] Number: Effective Repository Date:2017-04-23 04/01/2017 Ashly Primary Ashly [place] [id number] N Insurance:CARESOURCEP MartheyDOB: [facility] oly Number: [id number], [place] [id number] Repository [address]Lpm: (330) Date:2017-04-01P O [phone] (HP) [address]ATTN: [place] [address]IB: 04/01/2017 Secondary NOT GIVENUNK [place] Insurance:SELF PAY [facility] Number: Effective Repository Date:2017-04-01 02/14/2017 ASHLY Primary ASHLY [place] [id number] N Insurance:CARESOURCEP MARTHEYDOB: [facility] Number: [id number], [place] [id number] Repository [address]Utw: ([phone]) Date:P [phone] (HP) 87[address]ATTN: [place] [address]RK: 02/05/2017 ASHLY Primary ASHLY Tavo [id number] N Insurance:SELF PAY [facility] Number: Effective Repository [address]Qfu: ([phone]) Date: [phone] (HP) 02/01/2017 ASHLY I Primary ASHLY I [facility] MARTHEYDOB: Insurance:CARESOURCE MARTHEYDOB: [facility] N MEDICAIDPolicy [id number] Repository [facility] Number: [address] [place], [place] [id number] [place] [address]~MALLORY Date:2017-02-01 41673Nnd: (330) [email or web address] CAMBRIDGEel: [id number] [phone] Name:XPO Box (HP)Tel: (000) (HP) [address]DaySaint [place], [place] 000[address] (WP) [address]YX: 12/01/2016 ASHLY I Primary [facility] MARTHEYDOB: Insurance:SELF MARTHEYDOB: [facility] N PAYPolicy Number: [id number] Repository [place] Effective [address] [place], [place] Date:2016-12-01 [place] [address]~FELICIANONIO [id number] Name:[phone]: ([phone]) [email or web address]: [phone] ( (HP)Tel: (000) (HP) 000-0000 (WP) 12/01/2016 Secondary [facility] Insurance:CARESOURCE MARTHEYDOB: [facility] MEDICAIDPolicy [id number] Repository Number: [address] [facility] [id number] [place] Date:2016-12-01 122[address]Vmk: 330 [id number] [phone] Name:XPO Box (HP)Tel: (000) 87[address]DaySaint [place], [place] [address] (WP) [address]RL: 10/24/2016 ASHLY Primary Insurance:MED ASHLY [place] [id number] N MUTUAL TPAPolicy MARTHEYDOB: [facility] Number: [id number] [place], [place] [id number] Repository [address]Bdg: (330) Date:8593-14-95JQ [phone] (HP) [address]XKVUTARYT, [place] [address]UK: CHECK WEBSITE 09/20/2016 ASHLY I Primary [facility] MARTHEYDOB: Insurance:CARESOURCEP MANIONDOB: [facility] N olicy Number: [id number] Repository [facility] [id number] [place], [place] Date:2013-07-24 [address]Uao: [id number] [phone] () Name:NICOL GONZALEZ [address] [address]ZI: 09/20/2016 [facility] Primary [facility] MARTHEYDOB: Insurance:BENEFIT MARTHEYDOB: [facility] N SERVICESPolicy [id number] Repository [place] Number: [address] [place], [place] [id number] [place] [address]~SANDIMANI Date:2016-10-07 206[address]Xfq: 330 [email or web address] SPRINGFIELDel: [id number] [phone] Name:C8[place] CHOI ()Tel: (000) () [facility] 000-0000 () [place] [address]OP: 09/20/2016 Secondary [facility] Health Insurance:CARESOURCE MARTHEYDOB: [facility] MEDICAIDPolicy [id number] Repository Number: [address] [id number] [place] Date:2016-10-07 [address]Itd: [phone] [id number] [phone] Name:NATEO Tj ()Tel: (000 8730DaySaint [place], [place] 000[address] () [address]BE: 09/14/2016 Ashly Primary [facility] Health MartheyDOB: Insurance:Medical MartheyDOB: System [facility] [place] [id number] Repository [place] Number: Effective [place], [place] Date: [address]Hdp: () 09/14/2016 Secondary [facility] Health Insurance:CareSourceP MartheyDOB: System olicy Number: [id number] Repository Effective Date: 08/26/2016 ASHLY Primary Insurance:MED ASHLY Tavo [id number] N MUTUAL TPAPolicy MARTHEYDOB: Community [place] Number: [id number], [place] [id number] Repository [address]Dsl: (330) Date:2279-65-51TR [phone] () [address]EYYAGCUVB, [place] [address]QV: CHECK WEBSITE 03/16/2016 [facility] Primary Insurance:[facility] ASHLYSt. Agnes HospitalY1476 N PORTER RANCH TPAPolicy MARTHEYDOB: Community [place] Number: [id number], [place] [id number] Repository [address]Hhu: (330) Date:3340-01-82PS [phone] () [address]GCEQCRJQD, [place] [address]VS: CHECK WEBSITE
[2017-05-09 07:56] LABS: Internal QC Validated? YES +Cl - CLEAR BKGD; Pregnancy, Urine Negative Negative
[2017-05-09] MEDS: Celecoxib 200 MG Capsule 400 MG PO (08:12)
[2017-05-09] MEDS: oxyCODONE HCl Cr 10 MG Tablet PO (08:15)
[2017-05-09] MEDS: Acetaminophen 500 MG Tablet 1000 MG PO ×3 (08:16→22:36)
[2017-05-09] MEDS: Lactated Ringers 1,000 ML 999 ML IV (08:46)
[2017-05-09] MEDS: Cefazolin 2 GM in 0.9% Normal Saline 100 ML IV (09:32)
--- NOTE | 2017-05-09 09:55 | RAD_ITS ---
STUDY: X-RAY - LEFT KNEE REASON FOR EXAM: Female, 47 years old. Postop TECHNIQUE: 2 view(s) of the knee. COMPARISON: 10/24/2016 FINDINGS: FINDINGS: The patient is status post total knee replacement. The orthopedic hardware is intact. There is air within the joint and subcutaneous soft tissues consistent with recent surgery. Surgical nazanin project along the anterior knee. RAD/Knee 1 or 2 Views IMPRESSION: Postoperative changes of recent total knee arthroplasty. Electronically Signed: Frankie Gonsalves DO at 13:39 EST Tel , Service support ,
--- NOTE | 2017-05-09 11:45 | PCM.OPRPT ---
Report of Operation Date of Procedure: 05/09/17 Pre-Operative Diagnosis: Failed patellofemoral partial knee arthroplasty left, continued instability Post-Operative Diagnosis: Failed patellofemoral partial knee arthroplasty left, continued instability Surgery/Procedure Performed:: 1. Left total knee arthroplasty with removal of patellofemoral implant. 2. Left knee medial imbrication Description of Surgical Findings:: Stable knee with good patella tracking transit survey worker: Anabella Odom transit survey worker: brendon angelo, 3 Type of Anesthesia:: Spinal Anesthesiologist: Esau Aburto Special Medications: 2 g Ancef, 1 g TXA at incision, 1 g TXA closure, 10 mg Decadron, joint cocktail (5 mg Duramorph, 30 mL of 0.5% Ropivicaine, 1000 units of epinephrine, 30 mg of Toradol) Specimen's removed: 3 separate specimens were sent to microbiology Estimated Blood Loss (mL): 50 Fluids Replaced: 1800 mm crystalloid Description of Procedure: Implants used: 1. [place] size 3 triathlon posterior stabilized distal femoral component 2. [place] size 3 universal tibial baseplate 3. [place] X3 9 mm PS polyethylene 4. [place] X3 29 mm asymmetric patella Brief history operative indications: 47-year-old f with history of left knee patellofemoral osteoarthritis. Patient had patellofemoral partial knee replacement which was previously revised. She continued to have lateral instability of the patella and pain. With radiographic findings with loss of joint space, osteophyte formation and subchondral sclerosis in the residual patellofemoral as well as lateral tracking the patella. Failed conservative measures as mentioned in the H&P. Discussion of total knee arthroplasty as well as risk and benefits were discussed the patient including but not limited to blood loss, DVTs, PEs, neurovascular damage, general risk of anesthesia including loss of life, and stiffness or instability were discussed with patient. Patient demonstrated understanding and was able to sign informed consent. Procedure: On the date of procedure patient's left lower extremity was marked in the preoperative area. The patient was then taken back to the operating room where the patient was placed on the table in the supine position. All bony prominences were identified a well-padded. Anesthesia assumed control of the C-spine and airway and remained controlled throughout the remainder of the procedure. A tourniquet was placed on the left upper thigh and the leg was prepped in a sterile fashion. The surgeon then scrubbed at this time .Upon reentering the room left lower extremity was draped in a standard orthopedic fashion. A timeout was then called and everyone agreed upon the side, the site, the procedure to be performed, patient's identity and antibiotics given. Esmarch bandage was used to exsanguinate the extremity and the tourniquet was placed up to 250 mmHg with the knee in flexion. A midline skin incision was made and sharp dissection was taken down through skin subcutaneous tissue and fat. The standard medial parapatellar incision was made and the patella was subluxed laterally. The standard deep MCL release was done and the fat pad was resected. Next our attention was directed to the femur. Wear the femoral component was disengaged and removed using osteotomes. Navigation pins were placed, navigation was registered. The distal femoral cutting block was pinned into place and 9 mm of distal femur resection was completed. The distal femoral cut was verified with navigation. The knee was then placed in deep flexion in the standard AVA[employer]ai sizing guide was used to place the femoral component in 3? external rotation based on the posterior condyles. A size 3 4-in-1 cutting block was selected and pinned into place. The anterior cut was then made and checked for notching. The subsequent anterior chamfer cuts, posterior condylar cuts and posterior chamfer cuts were made while ensuring the MCL and LCL were protected. Our attention was then turned to the tibia where the navigation pins were placed, navigation was registered. [employer] tibial cutting guide was used to make the appropriate tibial cut 90 degrees from the mechanical axis. Navigation was then used to verify the cut. A size 3 tibial base plate was selected. the knee was flexed to 90 degrees and the soft tissues and posterior osteophytes were removed from the joint. 40 cc of the periarticular injection was injected into the posterior medial corner of the joint. The cutting block for the notch cut was placed in the notch cut was made using a saw and chisel. The appropriate trials were then placed on the femur and tibia. A trial polyethylene was trialed to ensure proper balancing and stability of the knee. Patella tracking, was then verified and corrected appropriately as needed. The appropriate tibial internal rotation was then marked with a bovie. Our attention was then directed to the patella. The patella was everted and found to have significant lateral facet wear in an inset patella there was also inferior osteophytes which showed wear. There is also continued wear on the patella. At this time we elected to resect the current patella and revise it. A flat resection was made. The lug holes were drilled and the patella trial was placed. Patellar tracking was checked and deemed appropriate. Once we were happy lug holes were drilled for the femur and trial components were removed. the tibia was subluxed and pinned into place and the keel was punched and the canal was reamed. Final components were verified and opened, and cement was mixed in a vacuum. AVA.ai Simplex cement was used. The wound was copiously irrigated with normal saline liters under low-pressure lavage. When the cement was ready the components were cemented into place starting with the tibia, femur and finally the patella. The trial poly component was placed and the knee was placed in full extension. All excess cement was removed in the process. Once the cement had cured the tracking, alignment and balance were verified and a size 9 mm polyethylene component was placed. Once the final components were placed the wound was copiously irrigated with normal saline solution and the periarticular injection was given. Arthrotomy was then closed using #2 FiberWire to imbricate the lax medial structures this was done sewing the medial structures over the lateral structures in a mattress type fashion. Remainder of the arthrotomy was then closed using #1 Vicryl distally and #2 FiberWire proximally in a running fashion. 2-0 interrupted Vicryl suture for the subcuticular layer and nazanin for final skin closure. A sterile compressive dressing was then placed. The patient was then awakened from anesthesia, transferred to the [place] and transferred to the PACU for recovery. Post op plan DVT ppx: ASA 325mg, thigh high compression stockings Follow up: in office in 2 weeks for wound check PT: to start POD #0 at hospital, outpatient PT should be arranged. Grafts/Implants Used: [place] posterior stabilized triathlon total knee - Complications None - Admit VTE Documentation VTE Present on Admission: No VTE Mechan Device Prophylaxis: SCD's, Thigh High RODOLFO Hose VTE Pharm Prophylaxis ordered?: Yes
--- NOTE | 2017-05-09 11:53 | OP.PCM_ITS ---
Report of Operation Date of Procedure: 05/09/17 Pre-Operative Diagnosis: Failed patellofemoral partial knee arthroplasty left, continued instability Post-Operative Diagnosis: Failed patellofemoral partial knee arthroplasty left, continued instability Surgery/Procedure Performed:: 1. Left total knee arthroplasty with removal of patellofemoral implant. 2. Left knee medial imbrication Description of Surgical Findings:: Stable knee with good patella tracking treer: Anabella Odom treer: brendon angelo, 3 Type of Anesthesia:: Spinal Anesthesiologist: Esau Aburto Special Medications: 2 g Ancef, 1 g TXA at incision, 1 g TXA closure, 10 mg Decadron, joint cocktail (5 mg Duramorph, 30 mL of 0.5% Ropivicaine, 1000 units of epinephrine, 30 mg of Toradol) Specimen's removed: 3 separate specimens were sent to microbiology Estimated Blood Loss (mL): 50 Fluids Replaced: 1800 mm crystalloid Description of Procedure: Implants used: 1. [place] size 3 triathlon posterior stabilized distal femoral component 2. [place] size 3 universal tibial baseplate 3. [place] X3 9 mm PS polyethylene 4. [place] X3 29 mm asymmetric patella Brief history operative indications: 47-year-old f with history of left knee patellofemoral osteoarthritis. Patient had patellofemoral partial knee replacement which was previously revised. She continued to have lateral instability of the patella and pain. With radiographic findings with loss of joint space, osteophyte formation and subchondral sclerosis in the residual patellofemoral as well as lateral tracking the patella. Failed conservative measures as mentioned in the H&P. Discussion of total knee arthroplasty as well as risk and benefits were discussed the patient including but not limited to blood loss, DVTs, PEs, neurovascular damage, general risk of anesthesia including loss of life, and stiffness or instability were discussed with patient. Patient demonstrated understanding and was able to sign informed consent. Procedure: On the date of procedure patient's left lower extremity was marked in the preoperative area. The patient was then taken back to the operating room where the patient was placed on the table in the supine position. All bony prominences were identified a well-padded. Anesthesia assumed control of the C- spine and airway and remained controlled throughout the remainder of the procedure. A tourniquet was placed on the left upper thigh and the leg was prepped in a sterile fashion. The surgeon then scrubbed at this time .Upon reentering the room left lower extremity was draped in a standard orthopedic fashion. A timeout was then called and everyone agreed upon the side, the site, the procedure to be performed, patient's identity and antibiotics given. Esmarch bandage was used to exsanguinate the extremity and the tourniquet was placed up to 250 mmHg with the knee in flexion. A midline skin incision was made and sharp dissection was taken down through skin subcutaneous tissue and fat. The standard medial parapatellar incision was made and the patella was subluxed laterally. The standard deep MCL release was done and the fat pad was resected. Next our attention was directed to the femur. Wear the femoral component was disengaged and removed using osteotomes. Navigation pins were placed, navigation was registered. The distal femoral cutting block was pinned into place and 9 mm of distal femur resection was completed. The distal femoral cut was verified with navigation. The knee was then placed in deep flexion in the standard [employer] sizing guide was used to place the femoral component in 3? external rotation based on the posterior condyles. A size 3 4-in-1 cutting block was selected and pinned into place. The anterior cut was then made and checked for notching. The subsequent anterior chamfer cuts, posterior condylar cuts and posterior chamfer cuts were made while ensuring the MCL and LCL were protected. Our attention was then turned to the tibia where the navigation pins were placed , navigation was registered. [employer] tibial cutting guide was used to make the appropriate tibial cut 90 degrees from the mechanical axis. Navigation was then used to verify the cut. A size 3 tibial base plate was selected. the knee was flexed to 90 degrees and the soft tissues and posterior osteophytes were removed from the joint. 40 cc of the periarticular injection was injected into the posterior medial corner of the joint. The cutting block for the notch cut was placed in the notch cut was made using a saw and chisel. The appropriate trials were then placed on the femur and tibia. A trial polyethylene was trialed to ensure proper balancing and stability of the knee. Patella tracking, was then verified and corrected appropriately as needed. The appropriate tibial internal rotation was then marked with a bovie. Our attention was then directed to the patella. The patella was everted and found to have significant lateral facet wear in an inset patella there was also inferior osteophytes which showed wear. There is also continued wear on the patella. At this time we elected to resect the current patella and revise it. A flat resection was made. The lug holes were drilled and the patella trial was placed. Patellar tracking was checked and deemed appropriate. Once we were happy lug holes were drilled for the femur and trial components were removed. the tibia was subluxed and pinned into place and the keel was punched and the canal was reamed. Final components were verified and opened, and cement was mixed in a vacuum. [employer] Simplex cement was used. The wound was copiously irrigated with normal saline liters under low-pressure lavage. When the cement was ready the components were cemented into place starting with the tibia, femur and finally the patella. The trial poly component was placed and the knee was placed in full extension. All excess cement was removed in the process. Once the cement had cured the tracking, alignment and balance were verified and a size 9 mm polyethylene component was placed. Once the final components were placed the wound was copiously irrigated with normal saline solution and the periarticular injection was given. Arthrotomy was then closed using #2 FiberWire to imbricate the lax medial structures this was done sewing the medial structures over the lateral structures in a mattress type fashion. Remainder of the arthrotomy was then closed using #1 Vicryl distally and #2 FiberWire proximally in a running fashion. 2-0 interrupted Vicryl suture for the subcuticular layer and nazanin for final skin closure. A sterile compressive dressing was then placed. The patient was then awakened from anesthesia, transferred to the [place] and transferred to the PACU for recovery. Post op plan DVT ppx: ASA 325mg, thigh high compression stockings Follow up: in office in 2 weeks for wound check PT: to start POD #0 at hospital, outpatient PT should be arranged. Grafts/Implants Used: [place] posterior stabilized triathlon total knee - Complications None - Admit VTE Documentation VTE Present on Admission: No VTE Mechan Device Prophylaxis: SCD's, Thigh High RODOLFO Hose VTE Pharm Prophylaxis ordered?: Yes
[2017-05-09] MEDS: Scopolamine 1mg/72hr Patch 1 PATCH TD (12:40)
[2017-05-09] MEDS: Lactated Ringers 1,000 ML 125 ML IV ×2 (13:12→14:18)
[2017-05-09] MEDS: oxyCODONE 5 MG Tablet PO ×3 (14:09→22:41)
[2017-05-09] MEDS: Famotidine 20 MG Tablet PO (14:09)
[2017-05-09] MEDS: Senna/Docusate Sodium 1 Tablet 2 TABLET PO ×2 (14:11→22:36)
[2017-05-09] MEDS: Ketorolac 15 MG/ML Vial IV ×2 (15:56→22:36)
[2017-05-09] MEDS: Cefazolin 1 GM/50 ML BAG IV (18:08)
[2017-05-09] MEDS: Aspirin 325 MG Tablet PO (18:09)
[2017-05-09] MEDS: Doxycycline 100 MG CAPSULE PO (22:36)
[2017-05-10] VITALS: BP 118/73; PULSE 59; RESP 16; TEMP 37.1; O2SAT 96
[2017-05-10 02:00] VITALS: RESP 16; O2SAT 96
[2017-05-10] MEDS: Cefazolin 1 GM/50 ML BAG IV (02:47)
[2017-05-10] MEDS: oxyCODONE 5 MG Tablet PO ×3 (02:49→12:27)
[2017-05-10] MEDS: Acetaminophen 500 MG Tablet 1000 MG PO ×2 (06:17→13:34)
[2017-05-10 06:37] LABS: Hematocrit 38.1 % (37-47); Hemoglobin 12.6 g/dl (12.0-15.0); Mean Corp Hgb Conc 33.1 g/gl (32-36); Mean Corpuscular Hgb 30.2 pg (27.0-32.0); Mean Corpuscular Volume 91.4 fL (81-99); Mean Platelet Vol. 11.1 fl (6.2-12.0); Platelet Count 198 K/mm3 (150-450); RBC Distribution Width CV 13.1 % (11.6-14.6); Red Blood Count 4.17 M/mm3 (4.2-5.4); White Blood Count 14.2 K/mm3 (4.4-11.0)
[2017-05-10 06:46] LABS: Scan Indicated on CBC? Y/N NO
[2017-05-10 06:48] LABS: Anion Gap 7 (5-15); BUN 19 mg/dL (7-18); Calcium,Total 8.5 mg/dL (8.5-10.1); Chloride 111 mmol/L (98-107); Creatinine, Serum 0.73 mg/dL (0.55-1.02); EST Glomerular Filtration Rate 91 mL/min (>60); Est Glom Filt Rate - Afr Amer 110 mL/min (>60); Estimated Creatinine Clearance 83.15 ml/min; Glucose 141 mg/dL (74-106); Potassium 4.3 mmol/L (3.5-5.1); Sodium Level 143 mmol/L (136-145)
[2017-05-10] MEDS: Aspirin 325 MG Tablet PO (08:32)
[2017-05-10] MEDS: Famotidine 20 MG Tablet PO (08:32)
[2017-05-10] MEDS: Senna/Docusate Sodium 1 Tablet 2 TABLET PO (08:32)
[2017-05-10] MEDS: Doxycycline 100 MG CAPSULE PO (08:32)
[2017-05-10 08:35] VITALS: BP 128/74; PULSE 51; RESP 18; TEMP 36.6; O2SAT 98
--- NOTE | 2017-05-10 09:30 | PCM.PN.ORT ---
Subjective: The patient was sitting in bedside chair upon examination. Patient denies any chest pain, shortness of breath, dizziness, lightheadedness, nausea or vomiting, or calf pain. Pain is controlled on medications. No adverse overnight events. Patient is doing well with physical therapy and states pain is controlled with current medications. Patient does wish to go home today. Objective: Vital signs stable and afebrile. Patient is able to plantarflex and dorsiflex actively. Sensation is intact to light touch to saphenous, sural, superficial and deep peroneal, and tibial distribution. Dressing is clean dry and intact. Negative Homans bilaterally, negative signs and symptoms of DVT. - Physical Exam General: Alert, Oriented x3, Cooperative, No apparent distress Vital Signs Temp Pulse Resp BP Pulse Ox 98.7 F 59 L 16 118/73 96 05/10/17 00:00 05/10/17 00:00 05/10/17 02:00 05/10/17 00:00 05/10/17 02:00 Oxygen Delivery Method Room Air Weight: 111.13 kg Body Mass Index (BMI) 42.0 Intake and Output for Last 24 Hours 05/08/17 05/09/17 05/10/17 23:59 23:59 23:59 Intake Total 2728 / 2728 1471 / 1471 Output Total 400 / 400 Balance 2728 / 2728 1071 / 1071 Laboratory Tests Past 24 Hrs 05/10/17 05/10/17 05:40 05:40 WBC 14.2 H RBC 4.17 L Hgb 12.6 Hct 38.1 MCV 91.4 MCH 30.2 MCHC 33.1 RDW 13.1 RDW Differential 43.0 Plt Count 198 MPV 11.1 Sodium 143 Potassium 4.3 Chloride 111 H Carbon Dioxide 25.0 Anion Gap 7 BUN 19 H Creatinine 0.73 Estim Creat Clear Calc 83.15 Est GFR (MDRD) Af Amer 110 Est GFR (MDRD) Non-Af 91 BUN/Creatinine Ratio 26.0 H Glucose 141 H Calcium 8.5 Assessment/Plan 1. S/P left total knee arthroplasty with removal of patellofemoral implant and left knee medial imbrication POD #1 2. Continue Pain Medications: Tylenol, OxyIR, MS Contin 3. DVT Prophylaxis: Aspirin 325 mg twice daily 4. PT/OT: As tolerated 5. H & H: 12.6/38.1, asymptomatic 6. Leukocytosis: Currently 14.2, afebrile. Patient did receive Decadron intraoperatively 7. Encouraged Incentive Spirometry 8. Disposition: Orthopedically stable, patient has tolerated physical therapy and pain is controlled on medications. Plan will be for discharge home today. Patient will follow-up per postop instructions. Prescriptions will be E scribed to [facility].
--- NOTE | 2017-05-10 09:40 | PCM.DC.TKR ---
Discharge Diet: No Restrictions Discharge Activity: May Not Drive May shower in (days): 1 - Turned dressing away from water Ice area for (Minutes): 20 - every hour while awake. Weight Bearing Status: Weight bearing as tolerated Elevate: Operative Extremity Additional Activity Instructions:: Wear elastic stockings for 2 weeks after your surgery. Call your doctor if your incision/area has: Continuous Slow Oozing, Sudden Increased Bleeding, Increased Pain/ Swelling, Increased Redness, Foul Smelling Discharge Call your doctor if you observe: Fever of 101 or Higher, Coldness, Increased Pain, Numbness or Tingling, Change in Color, Calf discomfort, Uncontrolled pain Remove Dressing in (days):: 4 - Okay to remove on April 13, 2017 Additional Instructions: Follow [facility] postop instructions Allergies/Adverse Reactions: Allergies No Known Allergies Allergy (Verified 04/23/17 15:13) Medications to take at Discharge Acetaminophen [Tylenol] 1,000 mg PO Q8 #90 tab 05/10/17 Aspirin 325 mg PO BIDCM #30 tab 05/10/17 Doxycycline 100 mg PO BID #14 cap 05/10/17 Famotidine [Pepcid] 20 mg PO DAILY #30 tab 05/10/17 MorphINE [Ms Contin] 15 mg PO BID 4 Days #8 tablet 05/10/17 Oxycodone [Oxyir] 5 - 10 mg PO Q4H PRN PRN 7 Days #80 tablet 05/10/17 Senna/Docusate Sodium [Senokot-S] 2 tab PO BID #20 tab 05/10/17 The following prescriptions were given: Oxycodone [Oxyir] 5 - 10 mg PO Q4H PRN PRN 7 Days #80 tablet PRN Reason: Mod-Severe Pain (4-01/02) Acetaminophen [Tylenol] 1,000 mg PO Q8 #90 tab Famotidine [Pepcid] 20 mg PO DAILY #30 tab Aspirin 325 mg PO BIDCM #30 tab Doxycycline 100 mg PO BID #14 cap MorphINE [Ms Contin] 15 mg PO BID 4 Days #8 tablet Senna/Docusate Sodium [Senokot-S] 2 tab PO BID #20 tab Primary Care Physician: Mihcelle Ferrera MD [Primary Care Provider] - Please Follow Up With: [facility] physical therapy When: 05/14/17 @ 9:30 am Please Follow Up With: Darius Tellez PA-C When: 05/23/17 @ 9:30 am
--- NOTE | 2017-05-10 10:00 | CASEMGMT ---
RN ELIGIO Face to Face with patient for initial transition planning/care coordination assessment. RN ELIGIO introduced self and role at [facility]. Patient sitting in chair, alert and oriented. Patient willing to participate in assessment and is able to answer all questions appropriately. Care providers, pharmacy, and demographics verified. See link attached. Patient wishes to discharge home and is setup with outpatient therapy at [facility] and is providing transportation. Patient states she has no further needs or concerns at this time. CM to follow for discharge planning needs that may arise. Disposition Plan: Patient to discharge home with outpatient therapy, family support, and follow-up plans in place.
--- NOTE | 2017-05-10 13:46 | CASEMGMT ---
VALERIE DEL VALLE received update from nursing that patient requires prior authorization for discharge pain medication oxy IR and Ms Contin. VALERIE DEL VALLE called provided number from pharmacy and obtained prior authorization. VALERIE DEL VALLE updated nurse Juana PADILLA with obtained prior authorization.
== END 2017-05-10 13:58 | disposition home or self-care (01) | DRG 209 ==
LOC: ACINP 07:35 → MS3 12:04
PROVIDERS: Anesthesiology; Admitting Provider Specialist; Family Provider Family Medicine; PCP Family Medicine; Visit Provider Specialist
PROC: 0SPU0JZ Removal of Synthetic Substitute from Left Knee Joint, Femoral Surface, Open Approach (ICD-10-PCS; principal; 2017-05-09 09:35)
DX: T84.023A Instability of internal left knee prosthesis, initial encounter (principal); M25.562 Pain in left knee; Z87.442 Personal history of urinary calculi; Z96.653 Presence of artificial knee joint, bilateral
CPT/HCPCS: 36415; 73560; 80048; 81025; 85025; 85027; 87015; 87070; 87075; 87081; 87102; 87116; 87205; 87206; 93005; 97110; 97116; 97162; 97165; 97530; 97535; 99251; J7120; G0463

== ENCOUNTER → 2017-06-01 14:10 | Outpatient (CLI) | payer MEDICAID, SELFPAY ==
--- NOTE | 2017-06-01 14:13 | VDLE_ITS ---
Reason For Study: LEG PAIN RIGHT LEFT CFV is compressible, spontaneous, phasic, GSV is normal. competent and demonstrates normal CFV is compressible, spontaneous, phasic, augmentation. competent, and demonstrates normal Procedure augmentation. Exam performed in department. FV is compressible, spontaneous, phasic, A preliminary report was called and/or faxed competent and demonstrates normal to Dr. Gan. augmentation. POP V is compressible, spontaneous, phasic, competent and demonstrates normal augmentation. T/P Trunk is compressible. PTV is compressible. LT PerV is compressible. Interpretation Summary Deep veins of the left lower extremity are patent and compressible segmentally. There is no evidence of left lower extremity deep vein thrombosis. Valvular competence appears intact within the proximal deep venous system on the left . The left greater saphenous vein appears patent and compressible segmentally. Ordering Physician: Oz Gan Performed By: Eufemia Thorpe RVT
== END ==
PROVIDERS: Family Provider Family Medicine; PCP Family Medicine; Visit Provider Specialist
DX: M79.662 Pain in left lower leg (principal)
CPT/HCPCS: 93971

== ENCOUNTER 2017-07-23 08:30 | Outpatient (RCR) | payer MEDICAID, SELFPAY ==
--- OUTSIDE RECORDS SUMMARY | 2017-07-03 07:51 | XMS RPT_ITS ---
:1970 Author Organization OHIP Support Name Relationship Address Phone [facility] Unavailable [address] + [place] [address] MARTHEY, KIRSTEN Unavailable [address] + [place] [address] [facility] Unavailable [address] + [place] [address] MARTHEY, KIRSTEN Unavailable [address] + [place] [address] [employer] [employer] Unavailable [address] + [place] [address] MARTHEY, KIRSTEN Unavailable [address] + [place] [address] [facility] Unavailable [address] + [place] [address] MARTHEY, KIRSTEN Unavailable [address] + [place] [address] [facility] Unavailable [address] + [place] [address] MARTHEY, KIRSTEN Unavailable [address] + [place] [address] [facility] Unavailable [address] + [place] [address] MARTHEY, KIRSTEN Unavailable [address] + [place] [address] [facility] Unavailable [address] + [place] [address] MARTHEY, KIRSTEN Unavailable [address] + [place] [address] MARTHEY, KIRSTEN Unavailable Unavailable + MARTHEY, KIRSTEN Unavailable Unavailable + MARTHEY, KIRSTEN Unavailable Unavailable + MARTHEY, KIRSTEN Unavailable Unavailable + BindoCHRISTINE [employer] [facility] Unavailable [address] + [place] [address] [facility] Unavailable [address] + [place] [address] MARTHEY, KIRSTEN Unavailable [address] + [place] [address] MARTHEY, KIRSTEN Unavailable Unavailable + MARTHEY, KIRSTEN Unavailable Unavailable + MARTHEY, KIRSTEN Unavailable Unavailable + MARTHEY, KIRSTEN Unavailable Unavailable + Marthey, Kirsten Unavailable Unavailable + [place] [employer] [facility] Unavailable [address] +. [place], [place] [address] [place] [address] [employer] [facility] Unavailable [address] +. [place] [address] MARTHEY, KIRSTEN Unavailable [address] + [place] [address] Care Team Providers Name Role Phone Oz Mckeon Attending Unavailable PROVIDER, UNKNOWN Referring Unavailable Iban, Michelle Primary Care Unavailable OZ MCKEON Attending Unavailable OZ MCKEON Referring Unavailable IBAN MEADOWS, DR. MICHELLE Nielsen Primary Care Unavailable KATRIN TURCIOS MD Attending Unavailable IBAN, MICHELLE Primary Care Unavailable OZ MCKEON MD Attending Unavailable OZ MCKEON MD Referring Unavailable IBAN, MICHELLE Primary Care Unavailable IBAN, MICHELLE Attending Unavailable IBAN, MICHELLE Primary Care Unavailable Deloris Drummond Attending Unavailable Iban, Michelle Primary Care Unavailable Oz Mckeon Admitting Unavailable Oz Mckeon Attending Unavailable Iban, Michelle Primary Care Unavailable Iban, Michelle Primary Care Unavailable Alexx Garcia Attending Unavailable Saleem Reyna Attending Unavailable Ibna, Michelle Primary Care Unavailable Wild Kimbrough Attending Unavailable Iban, Michelle Primary Care Unavailable Oz Mckeon Admitting Unavailable Iban, Michelle Primary Care Unavailable Oz Mckeon Attending Unavailable Christiano Verde Attending Unavailable Oz Mckeon Referring Unavailable Iban, Michelle Primary Care Unavailable Oz Mckeon Attending Unavailable Iban, Michelle Primary Care Unavailable Oz Mckeon Attending Unavailable Oz Mckeon Referring Unavailable PROBLEMS PROBLEMS DATE TYPE CONDITION / CODE ATTENDING STATUS SOURCE 05/10/2017 Unknown Z96.652 - Presence LindaOz Active [facility] of left artificial Community knee joint / Hospital Z96.652(ICD-10) Repository 05/08/2017 Unknown Z01.818 - Encounter Christiano Verde Active [facility] for other Community preprocedural Hospital examination / Repository Z01.818(ICD-10) 04/02/2017 Unknown R10.9 - Unspecified Wild Kimbrough Active [facility] abdominal pain / Community R10.9(ICD-10) Hospital Repository 02/14/2017 Unknown HYDRONEPHROSIS WITH Jsoe, Active [place] RENAL AND URETERAL [facility] CALCULOUS Hospital OBSTRUCTION / Repository N13.2(ICD-10) 02/14/2017 Unknown PERSONAL HISTORY OF Jose, Active [facility] URINARY CALCULI / [facility] Z87.442(ICD-10) Hospital Repository 02/14/2017 Unknown URINARY TRACT Ojse, Active [place] INFECTION, SITE NOT [facility] SPECIFIED / Hospital N39.0(ICD-10) Repository 02/01/2017 Admitting Dysuria / IBAN, Active [facility] Diagnosis R30.0(ICD-10) [facility] Repository 02/14/2017 Unknown INSTABILITY OF LindaViktoren Active [facility] INTERNAL LEFT KNEE Community PROSTHESIS, INIT Hospital ENCNTR / Repository T84.023A(ICD-10) 02/14/2017 Unknown PROSTH/OTH Oz Mckeon Active [facility] IMPLNT/MTRLS [facility] ASSOC W INCDT / Repository Y79.2(ICD-10) 02/14/2017 Unknown PRESENCE OF LindaViktoren Active [facility] ARTIFICIAL KNEE Community JOINT, BILATERAL / Hospital Z96.653(ICD-10) Repository 02/14/2017 Unknown MORBID (SEVERE) Oz Mckeon Active [facility] OBESITY DUE TO Community EXCESS CALORIES / Hospital E66.01(ICD-10) Repository 02/14/2017 Unknown SLEEP APNEA, Oz Mckeon Active [place] UNSPECIFIED / Community G47.30(ICD-10) Hospital Repository 09/20/2016 Admitting Unknown / OZ MCKEON Active [facility] Diagnosis UNK([facility] Unknown) Repository 09/14/2016 Admitting Pain in left knee / Oz Mckeon Active [facility] Diagnosis M25.562(ICD-10) System Repository 09/14/2016 Admitting Presence of left Oz Mckeon Active [facility] Diagnosis artificial knee System joint / Repository Z96.652(ICD-10) 02/14/2017 Unknown EMBOLISM AND Drummond, Active [facility] THROMBOSIS OF [facility] SUPERFIC VEINS OF Hospital LEFT LOW EXTRM / Repository I82.812(ICD-10) 02/14/2017 Unknown OBESITY, UNSPECIFIED Drummond, Active [place] / E66.9(ICD-10) [facility] Repository 02/14/2017 Unknown BODY MASS INDEX Drummond, Active [facility] (BMI) 40.0-44.9, [facility] ADULT / Hospital Z68.41(ICD-10) Repository 02/14/2017 Unknown TOBACCO USE / Drummond, Active [place] Z72.0(ICD-10) [facility] Repository PROCEDURES PROCEDURES No Procedure Records FoundRESULTS RESULTS VENOUS DUPLEX LOWER Observed: 06/01/2017 Status: F Source: [place] EXTREMITY 5:34 PM PENDING SALE TO [facility] REPOSITORY [facility] [address] [place], [place] [address] Duplex US, Mcchkiupue32/09/18 1410MR#: [id number] Acct: [id number]: ASHLY CROSS I Rep #: [id number]: 1970 47 From: Eddy Richter Dr: Oz Mckeon MD Status: REG CLIOrdering Dr: Oz Mckeon MD Date: 06/01/17Location: [facility] Sex: F CAdmitted:Reason For Study: LEG PAINRIGHT LEFTCFV is compressible, spontaneous, phasic, GSV is normal.competent and demonstrates normal CFV is compressible, spontaneous, phasic,augmentation. competent, and demonstrates normalProcedure augmentation.Exam performed in department. FV is compressible, spontaneous, phasic,A preliminary report was called and/or faxed competent and demonstrates normalto Dr. Mckeon. augmentation.POP V is compressible, spontaneous,phasic, competent and demonstrates normalaugmentation.T/P Trunk is compressible.PTV is compressible.LT PerV is compressible.Interpretation SummaryDeep veins of the left lower extremity are patent and compressible segmentally. There is noevidence of left lower extremity deep vein thrombosis. Valvular competence appears intactwithinthe proximal deep venous system on the left . The left greater saphenous vein appears patentandcompressible segmentally. Ord ering Physician: Oz MckeonPerformed By: Eufemia Thorpe, RVT 06/01/17 1733Date Eddy Du MDC: Michelle Ferrera MD; Oz Mckeon MD Date Dictated: 06/01/17 1410Date Transcribed: 06/01/17 1733Transcriptionist:Signed DISCHARGE INSTRUCTION Observed: 05/10/2017 Status: F Source: [place] 9:42 AM [facility] REPOSITORY [facility] [address] [address]Nyfusgtgngfg for Home/Discharge Ffigbvutwypd28/15/18 0940MR #: [id number] Acct: [id number]: ASHLY CROSS Rep #: [id number]: 1970 47 From: Darius POTTERCPCP: Michelle Ferrera MD Status: ADM INDischarge Diet: No RestrictionsDischarge Activity: May Not DriveMay shower in (days): 1 - Turned dressing away from waterIce area for (Minutes): 20 - every hour while awake.Weight Bearing Status: Weight bearing as toleratedElevate: Operative ExtremityAdditional Activity Instructions:: Wear elastic stockings for 2 weeks after your surgery.Call your doctor if your incision/area has: Continuous Slow Oozing, Sudden Increased Bleeding,Increased Pain/ Swelling, Increased Redness, Foul Smelling DischargeCall your doctor if you observe: Fever of 101 or Higher, Coldness, Increased Pain, Numbness orTingling, Change in Color, Calf discomfort, Uncontrolled painRemove Dressing in (days):: 4 - Okay to remove on April 13, 2017Additional Instructions:Follow [facility] postop instructionsAllergies/Adverse Reactions:AllergiesNo Known Allergies Allergy (Verified 04/23/17 15:13) Medications to take at DischargeAcetaminophen [Tylenol] 1,000 mg PO Q8 #90 tab Aspirin 325 mg PO BIDCM #30 tab 05/10/17Doxycycline 100 mg PO BID #14 cap 05/10/ 18Famotidine [Pepcid] 20 mg PO DAILY #30 tab 05/10/17MorphINE [Ms Contin] 15 mg PO BID 4 Days #8 tablet 05/10/17Oxycodone [Oxyir] 5 - 10 mg PO Q4H PRN PRN 7 Days #80 tablet 05/10/enna/Docusate Sodium [Senokot-S] 2 tab PO BID #20 tab 05/10/17The following prescriptions were given:Oxycodone [Oxyir] 5 - 10 mg PO Q4H PRN PRN 7 Days #80 tabletPRN Reason: Mod-Severe Pain (-01/02)Acetaminophen [Tylenol] 1,000 mg PO Q8 #90 tabFamotidine [Pepcid] 20 mg PO DAILY #30 tabAspirin 325 mg PO BIDCM #30 tabDoxycycline 100 mg PO BID #14 capMorphINE [Ms Contin] 15 mg PO BID 4 Days #8 tabletSenna/Docusate Sodium [Senokot-S] 2 tab PO BID #20 tabPrimary Care Physician:Michelle Ferrera MD [Primary Care Provider] -Please Follow Up With: [place] [facility] physical therapyWhen: 05/14/17 @ 9:30 amPlease Follow Up With: Darius Tellez PA-CWhen: 05/23/17 @ 9:30 am05/10/17 0942 < Electronically signed by Darius Tellez PA-C>Date Darius POTTERCCC: Michelle Ferrera MD CBC-COMPLETE BLOOD CNT Collected: 05/10/2017 Status: F Source: [place] NO DIFF 5:40 AM [facility] REPOSITORY TYPE CODE TESTS RESULT OUT OF RANGE REFERENCE UNITS LAB L100.1000 High 4.4-11.0 K/mm3 WBC 14.2 LAB L100.1200 Low 4.2-5.4 M/mm3 RBC 4.17 LAB L100.1300 Normal 12.0-15.0 g/dl HGB 12.6 LAB L100.1400 Normal 37-47 % HCT 38.1 LAB L100.1500 Normal 81-99 fL MCV 91.4 LAB L100.1600 Normal 27.0-32.0 pg MCH 30.2 LAB L100.1700 Normal 32-36 g/gl MCHC 33.1 LAB L100.1810 Normal 11.6-14.6 % RDW 13.1 CV LAB L100.1820 Normal 35.1-43.9 fl RDW 43.0 SD LAB L100.1900 Normal 150-450 K/mm3 PLT 198 LAB L100.2000 Normal 6.2-12.0 fl MPV 11.1 Performed By: #### L100.0500 ####[facility] [address] [place], [address] BASIC METABOLIC Collected: 05/10/2017 Status: F Source: [place] PROFILE (BMP) 5:40 AM [facility] TYPE CODE TESTS RESULT OUT OF RANGE REFERENCE UNITS LAB L501.0100 High 74-106 mg/dL GLU 141 Result Comment: Fasting Glucose result greater than or equal to 126 mg/ dLsuggests DIABETES MELLITUS per A.D.A. criteria.Please note revised GLUCOSE reference range owdbntpyz81/02/2018. LAB L501.1000 High 7-18 mg/dL BUN 19 LAB L501.1100 Normal 0.55-1.02 mg/dL CREAT,SERUM 0.73 Result Comment: The validity of the calculated GFR AND GFRAA in patients over70 years has not been determined. Clinical correlation isessential. LAB L501.1110 Normal >60 mL/min EST GFR 91 Result Comment: Non- GFR Calc LAB L501.1115 Normal >60 mL/min EST GFR - 110 AA Result Comment: GFR Calc LAB L501.1255 Normal ml/min Estimated 83.15 CRCL LAB L501.1300 High 10-20 RATIO BUN/CRE 26.0 LAB L501.2200 Normal 8.5-10 mg/dL CA 8.5 .1 LAB L501.5300 Normal 136-14 mmol/L NA 143 5 LAB L501.5600 Normal 3.5-5. mmol/L K 4.3 1 LAB L501.5900 High 98-107 mmol/L CL 111 LAB L501.6100 Normal 21.0-3 mmol/L CO2 25.0 2.0 LAB L501.6200 Normal 5-15 GAP 7 Performed By: #### L500.2500 ####[facility] [address] [facility] [place], [address] OPERATIVE REPORT Observed: 05/09/2017 Status: F Source: [place] 11:53 AM [facility] REPOSITORY [facility] [address] [place], [place] [address]Unpeswpsn Mimydf72/14/18 1145MR#: [id number] Acct: [id number]: ASHLY CROSS Rep #: [id number]: 1970 47 From: Oz Mckeon MDPCP: Michelle Ferrera MD Status: ADM IN YLocation: ACINP [id number] of OperationDate of Procedure: 05/09/17Pre-Operative Diagnosis: Failed patellofemoral partial knee arthroplasty left, continuedinstabilityPost-Operative Diagnosis: Failed patellofemoral partial knee arthroplasty left, continuedinstabilitySurgery/ Procedure Performed:: 1. Left total knee arthroplasty with removal of patellofemoralimplant. 2. Left knee medial imbricationDescription of Surgical Findings::Stable knee with good patella trackingOR Stockroom Helper: Anabella Odom Stockroom Helper: brendon angelo MS3Type of Anesthesia:: SpinalAnesthesiologist: An Aburto Medications: 2 g Ancef, 1 g TXA at incision, 1 g TXA closure, 10 mg Decadron, jointcocktail (5 mg Duramorph, 30 mL of 0.5% Ropivicaine, 1000 units of epinephrine, 30 mg ofToradol)Specimen's removed: 3 separate specimens were sent to microbiologyEstimated Blood Loss (mL): 50Fluids Replaced: 1800 mm crystalloidDescription of Procedure:Implants used:1. [place] size 3 triathlon posterior stabilized distal femoral component2. [place] size 3 universal tibial baseplate3. [place] X3 9 mm PS polyethylene4. [place] X3 29 mm asymmetric patellaBrief history operative indications:47-year-old f with history of left knee patellofemoral osteoarthritis. Patient hadpatellofemoral partial knee replacement which was previously revised. She continued to havelateral instability of the patella and pain. With radiographic findings with loss of jointspace, osteophyte formation and subchondral sclerosis in the residual patellofemoral as well aslateral tracking the patella. Failed conservative measures as mentioned in the H AND P.Discussion of total knee arthroplasty as well as risk and benefits were discussed the patientincluding but not limited to blood loss, DVTs, PEs, neurovascular damage, general risk ofanesthesia including loss of life, and stiffness or instability were discussed with patient.Patient demonstrated understanding and was able to sign informed consent.Procedure:On the date of procedure patient's left lower extremity was marked in the preoperative area.The patient was then taken back to the operating room where the patient was placed on the tablein the supine position. All bony prominences were identified a well-padded. Anesthesia assumedcontrol of the C- spine and airway and remained controlled throughout the remainder of theprocedure. A tourniquet was placed on the left upper thigh and the leg was prepped in a sterilefashion. The surgeon then scrubbed at this time .Upon reentering the room left lower extremitywas draped in a standard orthopedic fashion. A timeout was then called and everyone agreed uponthe side, the site, the procedure to be performed, patient's identity and antibiotics given.Esmarch bandage was used to exsanguinate the extremity and the tourniquet was placed up to 250mmHg with the knee in flexion. A midline skin incision was made and sharp dissection was takendown through skin subcutaneous tissue and fat. The standard medial parapatellar incision wasmade and the patella was subluxed laterally. The standard deep MCL release was done and the fatpad was resected.Next our attention was directed to the femur. Wear the femoral component was disengaged andremoved using osteotomes. Navigation pins were placed, navigation was registered. The distalfemoral cutting block was pinned into place and 9 mm of distal femur resection was completed.The distal femoral cut was verified with navigation. The knee was then placed in deep flexionin the standard [employer] sizing guide was used to place the femoral component in 3 externalrotation based on the posterior condyles. A size 3 4-in-1 cutting block was selected and pinnedinto place. The anterior cut was then made and checked for notching. The subsequent anteriorchamfer cuts, posterior condylar cuts and posterior chamfer cuts were made while ensuring theMCL and LCL were protected.Our attention was then turned to the tibia where the navigation pins were placed, navigationwas registered. [employer] tibial cutting guide was used to make the appropriate tibial cut 90degrees from the mechanical axis. Navigation was then used to verify the cut. A size 3 tibialbase plate was selected. the knee was flexed to 90 degrees and the soft tissues and posteriorosteophytes were removed from the joint. 40 cc of the periarticular injection was injectedinto the posterior medial corner of the joint. The cutting block for the notch cut was placedin the notch cut was made using a saw and chisel.The appropriate trials were then placed on the femur and tibia. A trial polyethylene wastrialed to ensure proper balancing and stability of the knee. Patella tracking, was thenverified and corrected appropriately as needed. The appropriate tibial internal rotation wasthen marked with a bovie.Our attention was then directed to the patella. The patella was everted and found to havesignificant lateral facet wear in an inset patella there was also inferior osteophytes whichshowed wear. There is also continued wear on the patella. At this time we elected to resectthe current patella and revise it. A flat resection was made. The lug holes were drilled andthe patella trial was placed. Patellar tracking was checked and deemed appropriate.Once we were happy lug holes were drilled for the femur and trial components were removed. thetibia was subluxed and pinned into place and the keel was punched and the canal was reamed.Final components were verified and opened, and cement was mixed in a vacuum. [employer] Simplexcement was used. The wound was copiously irrigated with normal saline liters under low-pressurelavage.When the cement was ready the components were cemented into place starting with the tibia,femur and finally the patella. The trial poly component was placed and the knee was placed infull extension. All excess cement was removed in the process. Once the cement had cured thetracking, alignment and balance were verified and a size 9 mm polyethylene component wasplaced.Once the final components were placed the wound was copiously irrigated with normal salinesolution and the periarticular injection was given. Arthrotomy was then closed using #2FiberWire to imbricate the lax medial structures this was done sewing the medial structuresover the lateral structures in a mattress type fashion. Remainder of the arthrotomy was thenclosed using #1 Vicryl distally and #2 FiberWire proximally in a running fashion. 2-0interrupted Vicryl suture for the subcuticular layer and nazanin for final skin closure. Asterile compressive dressing was then placed. The patient was then awakened from anesthesia,transferred to the rgoode and transferred to the PACU for recovery.Post op planDVT ppx: ASA 325mg, thigh high compression stockingsFollow up: in office in 2 weeks for wound checkPT: to start POD #0 at hospital, outpatient PT should be arranged.Grafts/Implants Used: [place] posterior stabilized triathlon total knee- ComplicationsNone- Admit VTE DocumentationVTE Present on Admission: NoVTE Mechan Device Prophylaxis: SCD's, Thigh High RODOLFO HoseVTE Pharm Prophylaxis ordered?: Yes05/09/17 1153 <Electronically signed by Oz Mckeon MD>Date Oz Mckeon MDCC: Michelle Ferrera MD; Oz Mckeon MD Signed KNEE 1 OR 2 VIEWS Observed: 05/09/2017 Status: F Source: [place] 9:57 AM [facility] REPOSITORY [facility] [place] [address] [place] [address]Ebjl 1 or 2 ViewsMR#: [id number] Acct: [id number]: ASHLY CROSS Rep #: [id number]: 1970 F 47 From: Frankie Gonsalves DOPCP: Iban TORREZ,Michelle Status: ADM INStudy: Knee 1 or 2 Views Date of Exam: 05/09/17Exam# [id number] Ordering Dr: Oz Mckeon MDSTUDY: X-RAY - LEFT KNEEREASON FOR EXAM: Female, 47 years old. PostopTECHNIQUE: 2 view(s) of the knee.COMPARISON: 10/24/2016 FINDINGS:FINDINGS:The patient is status post total knee replacement. The orthopedic hardwareis intact. There is air within the joint and subcutaneous soft tissuesconsistent with recent surgery. Surgical nazanin project along theanterior knee. RAD/Knee 1 or 2 ViewsIMPRESSION:Postoperative changes of recent total knee arthroplasty.Electronically Signed:Frankie Gonsalves DO at 13:39 ESTTel , Service support , EC: Michelle Ferrera MD; Oz Mckeon MD Taxi Dancer:Signed ,URINE Collected: 05/09/2017 Status: F Source: [place] 7:45 AM [facility] REPOSITORY TYPE CODE TESTS RESULT OUT OF REFERENCE UNITS RANGE LAB L400.8000 Normal Negative HCGUQUAL Negative Result Comment: Very dilute urine specimens, as indicated by a low specificgravity, may not contain instruments sales representative levels of hCG.If is still suspected, a first morning urinespecimen should be collected 48 hours later and tested. Performed By: #### L400.7600 ####[facility] [address] [place], [place], [address] Observed: 05/09/2017 Status: F Source: [place] CULTURE, DEEP WOUND 12:00 AM [facility] REPOSITORY Order Date: 10/25/16 Comments: SUPRA PATELLA Gram StainGram Stain No organisms seen No cells seen Red Cell Stroma Wound CultureNo growth aerobically. Cult, AnaerobicNo growth in 5 days. Performed By: #### M100.1500 ####[facility] [address] [place], [place], [address] Observed: 05/09/2017 Status: F Source: [place] CULTURE, DEEP WOUND 12:00 AM [facility] REPOSITORY Order Date: 10/25/16 Comments: FEMORAL MEMBRANE #2Gram StainGram Stain 3+ Red Blood Cells No organisms seen Rare White Blood Cells Wound CultureNo growth aerobically. Cult, AnaerobicNo growth in 5 days. Performed By: #### M100.1500 ####[facility] [address] [place], [place], [address] Observed: 05/09/2017 Status: F Source: [place] CULTURE, DEEP WOUND 12:00 AM [facility] REPOSITORY Order Date: 10/25/16 Comments: FEMORAL MEMBRANE #1Gram StainGram Stain 3+ Red Blood Cells No organisms seen Rare White Blood Cells Wound CultureNo growth aerobically. Cult, AnaerobicNo growth in 5 days. Performed By: #### M100.1500 ####[facility] [address] [place], [address] AFB Observed: 05/09/2017 Status: F Source: [place] CULT/SMEAR [id number] 12:00 [facility] REPOSITORY Comments: FEMORAL MEMBRANE #1 Is this test to exclude patient from TB Isolation? N AFB Smear/Fluor TESTING PERFORMED AT [facility]. ORIGINAL REPORT ON FILE IN LAB CONTAINS ADDITIONAL TEST SITE INFORMATION. Smear, Acid Fast Tissue Grinding Smear: Negative AFB Cult TESTING PERFORMED AT [facility]. ORIGINAL REPORT ON FILE IN LAB CONTAINS ADDITIONAL TEST SITE INFORMATION. Culture, Acid Fast NO ACID-FAST BACILLI ISOLATED AFTER 6 WEEKS. Performed By: #### M100.3880, M600.1900 ####[facility] [address] [place], [address] Observed: 05/09/2017 Status: F Source: NOLVIA CONNELL W/ 12:00 [facility] [id number] REPOSITORY Comments: FEMORAL MEMBRANE #1 Is this test to exclude patient from TB Isolation? N Cu,[id number] TESTING PERFORMED AT [facility]. ORIGINAL REPORT ON FILE IN LAB CONTAINS ADDITIONAL TEST SITE INFORMATION. CUF No yeast or mold isolated after [address] TESTING PERFORMED AT [facility]. ORIGINAL REPORT ON FILE IN LAB CONTAINS ADDITIONAL TEST SITE INFORMATION. Fungus Stain No yeast or mold observed. Performed By: #### M100.3880, M600.1900 ####[facility] [address] [place], [address] [employer] Observed: 05/09/2017 Status: F Source: [place] CULT/SMEAR [id number] 12:00 [facility] REPOSITORY Comments: FEMORAL MEMBRANE #2 Is this test to exclude patient from TB Isolation? N AFB Smear/Fluor TESTING PERFORMED AT [facility]. ORIGINAL REPORT ON FILE IN LAB CONTAINS ADDITIONAL TEST SITE INFORMATION. Smear, Acid Fast Tissue Grinding Smear: Negative AFB Cult [facility] ORIGINAL REPORT ON FILE IN LAB CONTAINS ADDITIONAL TEST SITE INFORMATION. Culture, Acid Fast NO ACID-FAST BACILLI ISOLATED AFTER 6 WEEKS. Performed By: #### M100.3880, M600.1900 ####[facility] [address] [place], [id number] Observed: 05/09/2017 Status: F Source: NOLVIA CONNELL W/ 12:00 [facility] [id number] REPOSITORY Comments: FEMORAL MEMBRANE #2 Is this test to exclude patient from TB Isolation? N Cu,Ttfgou9922 TESTING PERFORMED AT [facility]. ORIGINAL REPORT ON FILE IN LAB CONTAINS ADDITIONAL TEST SITE INFORMATION. CUF No yeast or mold isolated after [address] TESTING PERFORMED AT [facility]. ORIGINAL REPORT ON FILE IN LAB CONTAINS ADDITIONAL TEST SITE INFORMATION. Fungus Stain No yeast or mold observed. Performed By: #### M100.3880, M600.1900 ####[facility] [address] [place], [address] Observed: 05/09/2017 Status: F Source: [place] VIDAL, FUNGUS W/ 12:00 [facility] [id number] REPOSITORY Comments: SUPRA PATELLA Is this test to exclude patient from TB Isolation? N Cu,Lptola0671 [facility]. ORIGINAL REPORT ON FILE IN LAB CONTAINS ADDITIONAL TEST SITE INFORMATION. __ CUF No yeast or mold isolated after [address] TESTING PERFORMED AT [facility]. ORIGINAL REPORT ON FILE IN LAB CONTAINS ADDITIONAL TEST SITE INFORMATION. Fungus Stain No yeast or mold observed. Performed By: #### M600.1900 ####[facility] [address] [place], [address] AFB Observed: 05/09/2017 Status: F Source: [place] CULT/SMEAR [id number] 12:00 [facility] REPOSITORY Comments: SUPRA PATELLA AFB Smear/Fluor [facility]. ORIGINAL REPORT ON FILE IN LAB CONTAINS ADDITIONAL TEST SITE INFORMATION. Smear, Acid Fast Tissue Grinding Smear: Negative AFB Cult TESTING PERFORMED AT [facility]. ORIGINAL REPORT ON FILE IN LAB CONTAINS ADDITIONAL TEST SITE INFORMATION. Culture, Acid Fast NO ACID-FAST BACILLI ISOLATED AFTER 6 WEEKS. Performed By: #### M100.3880 ####[facility] [address] [place], [address] 12 LEAD ELECTROCARDIOGRAM Observed: 04/24/2017 Status: F Source: [place] 10:52 AM [facility] REPOSITORY [facility] Ccewkeqw[address]25 [facility] [place] [address]DJQ - [facility]04/23/17 1538MR#: [id number] Acct: [id number]: ASHLY CROSS Rep #: [id number]: 47 From: Ash Richter Dr: Oz Mckeon MD Status: PRE INOrdering Dr: Oz Mckeon MD Date: 04/23/17Location: [facility] Sex: F CAdmitted:Test Reason :Blood Pressure : / mmHGVent. Rate : 062 BPM Atrial Rate : 062 BPMP- R Int : 130 ms QRS Dur : 084 msQT Int : 390 ms P-R-T Axes : 033 022 012 degreesQTc Int : 395 msNormal sinus rhythm with sinus arrhythmiaNormal ECGConfirmed by ASH BUCK MD ([id number]), scientific editor GILMAR ZENG ([id number]) on 04/24/2017 10:51:54 AMReferred By: ADAM LUKE Confirmed By:ASH BUCK MD04/24/17 1051Date Ash Buck MDCC: Michelle Ferrera MD Date Dictated: 04/23/171537Date Transcribed: 04/23/17 153Transcriptionist:Signed HISTORY AND PHYSICAL Observed: 04/23/2017 Status: F Source: [place] EXAM 6:13 PM [facility] REPOSITORY [facility] [address] [place], [place] [address]Ttpmcfd and Yaygoiur62/29/18 1802MR#: [id number] Acct: [id number]: ASHLY CROSS Rep #: [id number]: 1970 47 From: Darius POTTERCPCP: Michelle Ferrera MD Status: PRE IN YLocation: SDCHistory and PhysicalDATE [...] Arhthroscopy - (01/2014) [facility] (02/2016) [facility] - ([facility]) SAW@[email or web address] Complications:NoneAssistive Devices: GlassesReviewed and updated.SOCIAL HISTORY:SH:Marital: .Occupation: [...] touchIMAGING STUDIES:X-rays of the left knee at [facility] [place] shows patient to haveprogressive lateral migration of [...] for changes.___ Dictated on admissionDate: Time: Signature: 04/23/171812 <Electronically signed by Darius Tellez PA-C>Date Darius TINEOosigner Signature: Date (if applicable)CC: Darius KLINE; Michelle Ferrera MD Signed CBC W/DIFF, AUTOMATED Collected: 04/23/2017 Status: F Source: [place] 3:50 PM [facility] REPOSITORY TYPE CODE TESTS RESULT OUT OF [...] Absolute Lymph 3.86 Performed By: #### L100.0100 ####[facility] [address] [place], [address] BASIC METABOLIC Collected: 04/23/2017 Status: F Source: [place] PROFILE (BMP) 3:50 PM [facility] REPOSITORY TYPE CODE TESTS RESULT OUT OF [...] 5-15 GAP 7 Performed By: #### L500.2500 ####[facility] [address] [place], [address] Observed: 04/23/2017 Status: F Source: [place] MRSA/SAID SCREEN 3:50 PM [facility] REPOSITORY MRSA/SAID SCRNS. AUREUS S. aureus NegativeMRSA MRSA Negative Performed By: #### M100.651 ####[facility] [address] [place], [address] EMERGENCY DEPARTMENT Observed: 04/04/2017 Status: F Source: [place] SUMMARY 1:51 AM [facility] REPOSITORY [facility] [address] [place], [place] [address]Kdpbzgzzc Department Bmcqicv11/07/18 1909MR#: [id number] Acct: [id number]: ASHLY CROSS Rep #: [id number]: 1970 47 From: Wild Kimbrough DOPCP: Iban TORREZ,Michelle Status: DEP ER- ER Visit SummaryDate [...] nontenderCVS: Regular rate rhythm no murmurs normal S1-D7Imekezowzly: No distress clear to auscultation bilaterally chest [...] am going to write for a few Kopperl. Patient to return if painworsens or changes. If patient continues to have pain in 24 hours I would suggest a repeatevaluation.Impression: 1. Acute abdominal painThis note was generated with AbleSky dictation software. It may contain incorrect words,spelling, and punctuation that were not noted in review of the chart prior to signingED Disposition- Plan for ED Patient:Disposition: Home or Assisted LivingChief Complaint: Abd PainInstructions: ED Abdominal Pain Unkn Cause, ED Stone Renal W ColicPrescriptions:Hydrocodone Bitart/Apap 5-325 [Kopperl 5/325] 1 - 2 tab PO Q4H [...] your Primary Care Provider. Call [facility] ([phone])or report to the closest Emergency Room.Call 911 if necessary.01/10 0151 <Electronically signed by Wild Kimbrough DO>Date Wild Kimbrough DOCosigner Signature (If Indicated): Date CC: Michelle Ferrera MD URINALYSIS, COMPLETE Collected: 04/01/2017 Status: F Source: [place] 6:30 PM [facility] REPOSITORY Order Comment: Order Date: 04/01/17How was [...] 0 SEEN URINE Performed By: #### L400.0001 ####[facility] [address] [place], [place], [address] CBC W/DIFF, AUTOMATED Collected: 04/01/2017 Status: F Source: [place] 6:15 PM [facility] REPOSITORY TYPE CODE TESTS RESULT OUT OF [...] Absolute Lymph 3.26 Performed By: #### L100.0100 ####[facility] [address] [place], [address] COMPREHENSIVE METABOLIC Collected: 04/01/2017 Status: F Source: [place] SWIFT 6:15 PM [facility] REPOSITORY TYPE CODE TESTS RESULT OUT OF [...] GAP 6 Performed By: #### L500.4050, L501.2450 ####[facility] [address] [place], [address] LIPASE Collected: 04/01/2017 Status: F Source: [place] 6:15 PM PENDING SALE TO [facility] REPOSITORY TYPE CODE TESTS RESULT OUT OF RANGE REFERENCE UNITS LAB L501.2450 Normal 73-393 U/L LIPASE 152 Performed By: #### L500.4050, L501.2450 ####[facility] [address] [place], [address] ABDOMEN/PELVIS WITHOUT Observed: 04/01/2017 Status: F Source: [place] CONT 6:08 PM [facility] REPOSITORY [facility] [address] [place] [address]Kqfqxcr/Pelvis without ContMR#: [id number] Acct: [id number]: ASHLY CROSS Rep #: [id number]: F 47 From: Winter Arreola MDPCP: Michelle Ferrera MD Status: REG ERStudy: Abdomen/Pelvis without Cont Date of Exam: 04/01/17Exam# [id number] Ordering Dr: Wild Kimbrough DOSTUDY: CT ABDOMEN [...] thevisualized thoracic and lumbar spine. ORDER #: [id number] CT/Abdomen/Pelvis without ContIMPRESSION:Cholelithiasis.Atherosclerosis.Colonic diverticulosis without evidence of diverticulitis.Degenerative changes.Electronically Signed:Winter Arreola MD at 19:17 ESTTel , Service support , KJ: Wild Kimbrough DO; Michelle Ferrera MD Taxi Dancer:Signed OPERATIVE REPORT Observed: 02/14/2017 Status: F Source: [place] 4:25 PM [facility] REPOSITORY [facility] [address] [place] [address]Tsbnarsxr Mbyjbr23/22/17 1622MR#: [id number] Acct: [id number]: ASHLY CROSS Rep #: [id number]: 1970 47 From: Saleem Reyna MDPCP: Iban TORREZ,Michelle Status: REG [facility] YLocation: AC UP00-6Bsbixw of OperationDate of Procedure: 02/14/17Pre-Operative Diagnosis: Left [...] : NoReason prophylaxis not ordered:: Treatment Not Bqwwqtzzb54/22/17 1625 <Electronically signed by Saleem Reyna MD>Date Saleem Reyna MDCC: Saleem Reyna MD ; Michelle Ferrera MD Signed DISCHARGE INSTRUCTION Observed: 02/14/2017 Status: F Source: [place] 4:22 PM [facility] REPOSITORY [facility] [address]mv[address]xihqcd50[address] [facility] [place], [place] [address]Jemtrijuoxwl for Home/Discharge Roncwhlfwzsu82/22/17 1622 #: [id number] Acct: [id number]: ASHLY CROSS Rep #: [id number]: 1970 47 From: Saleem Reyna MDPCP: Iban TORREZ,Michelle Status: REG SDCDischarge Diet: Light diet - [...] Q6H PRN PRN #20 tablet 02/05/17Hydrocodone/Acetaminophen [ Kopperl 5-325 Tablet] 1 each PO Q4H PRN PRN #14 tablet 02/14/17The following prescriptions were given:Hydrocodone/Acetaminophen [Kopperl 5-325 Tablet] 1 each PO Q4H PRN PRN #14 tabletPRN Reason: PainPrimary Care Physician:Michelle Ferrera MD [Primary Care Provider] -Please Follow Up With: Saleem Reyna MDWhen: in 2 weeks, please call to make an appointment.02/14/17 1622 <Electronically signed by Saleem Reyna MD>Date Saleem Reyna MDCC: Michelle Ferrera MD ABDOMEN SINGLE VIEW Observed: 02/14/2017 Status: F Source: [place] 12:00 AM [facility] REPOSITORY [facility]AI[facility] [place] [address] [place] [address]Qyseiaw Single ViewMR#: [id number] Acct: [id number]: ASHLY CROSS Rep #: [id number]: 1970 F 47 From: Landon Corbett MDPCP: Michelle Ferrera MD Status: REG SDCStudy: Abdomen Single View Date of Exam: 02/14/17Exam# [id number] Ordering Dr: Saleem Reyna MDSTUDY: X-RAY - ABDOMEN/PELVISREASON FOR EXAM: Female, 47 years old. Abdominal pain.TECHNIQUE: Two AP supine views of the abdomen and pelvis.COMPARISON: Comparison is made with prior CT scan and abdomen datedN2016. FINDINGS:Normal visualized lung bases.There is an unremarkable bowel gas pattern. There is evidence of acalcified gallstone in the right upper quadrant.There is a 6.4 mm calculus in the lower pole calyx of the left kidney.There are calcified phleboliths in the pelvis. Normal visualized osseousstructures. ORDER #: [id number] RAD/ Abdomen Single ViewIMPRESSION:6.4 mm calculus in the lower pole calyx of the left kidney. Gallstone.Electronically Signed:Landon Corbett MD at 14:47 ESTTel [phone], Service support , XK: Saleem Reyna MD; Michelle Ferrera MD Taxi Dancer:Signed EMERGENCY DEPARTMENT Observed: 02/06/2017 Status: F Source: [place] SUMMARY 3:50 PM [facility] REPOSITORY [facility] [address] [place] [address]Rlhtavldf Department Lyhsdur23/13/17 1927MR#: [id number] Acct: [id number]: SERAFINLeticiaASHLY Rep #: [id number]: 1970 47 From: Alexx [...] Left ureterolithiasis.2. UTI.This note was generated with AbleSky dictation software. It may contain incorrect words,spelling, [...] problems, contact your Primary Care Provider. Call [employer] [facility] ([phone])or report to the closest Emergency Room.Call 911 if necessary.02/06/17 1550 <Electronically signed by Alexx Garcia MD>Date Alexx Garcia MDCosigner Signature (If Indicated): Date CC: Michelle Ferrera MD CONSULTATION Observed: 02/06/2017 Status: F Source: [place] 3:10 PM [facility] REPOSITORY [facility] [address] [place] [address]Ycgraaxwraty94/14/17 1505MR#: [id number] Acct: [id number]: ASHLY CROSS Rep #: [id number]: 47 From: Ash Holman MDPCP: Michelle Fererra MD Status: DEP ER YLocation: EDProblem List(1) [...] #14 capsule Surgical History: arthroscopy, knee - 2014Psychiatric History: No pertinent psych hxGYN History: No pertinent TECTONOPHYSICIST historySmoking Status: Current every day smoker- * [...] MD Signed Observed: 02/05/2017 Status: F Source: [place] CULTURE, BLOOD (WB) 5:08 PM [facility] REPOSITORY BCNo growth in 5 days. Performed By: #### M200.1000 ####[facility] [address] [place], [place], [address] BASIC METABOLIC Collected: 02/05/2017 Status: F Source: [place] PROFILE (BMP) 5:00 PM [facility] REPOSITORY TYPE CODE TESTS RESULT OUT OF [...] 5-15 GAP 8 Performed By: #### L500.2500 ####[facility] [address] [place], [place], [address] LACTIC ACID Collected: 02/05/2017 Status: F Source: [place] 5:00 PM [facility] REPOSITORY Order Comment: Yes/No query for Sepsis Lactate Rule Y TYPE CODE TESTS RESULT OUT OF RANGE REFERENCE UNITS LAB L503.6005 Normal 0.4-2.0 mmol/L LACTIC 0.8 ACID Performed By: #### L503.6005 ####[facility] [address] [place], [address] CBC W/DIFF, AUTOMATED Collected: 02/05/2017 Status: F Source: [place] 5:00 PM [facility] REPOSITORY TYPE CODE TESTS RESULT OUT OF [...] Absolute Lymph 3.90 Performed By: #### L100.0100 ####[facility] [address] [place], [address] Observed: 02/05/2017 Status: F Source: [place] CULTURE, BLOOD (WB) 5:00 PM [facility] REPOSITORY BCNo growth in 5 days. Performed By: #### M200.1000 ####[facility] [address] [place], [address] ABDOMEN/PELVIS WITHOUT Observed: 02/05/2017 Status: F Source: [place] CONT 4:52 PM [facility] REPOSITORY [facility] [address] [place] [address]Dwstesf/Pelvis without ContMR#: [id number] Acct: [id number]: AMERICAASHLY Rep #: [id number]: F 47 From: Onur Nolan DOPCP: Iban TORREZ, Michelle Status: REG ERStudy: Abdomen/Pelvis without Cont Date of Exam: 02/05/17Exam# [id number] Ordering Dr: Alexx Garcia MDSTUDY: CT ABDOMEN [...] abdominal wall. Normal osseous structures. ORDER #: [id number] CT/Abdomen/ Pelvis without ContIMPRESSION:Stone in the left collecting system near the UPJ with mild lefthydronephrosis. Large gallstonesElectronically Signed:Onur Nolan, SB870002/05 at 17:57 ESTTel , Service support , Fax RC: Michelle Ferrera MD; Alexx Garcia MD Taxi Dancer:Signed ,SERUM,HCG QUALI. Collected: Status: F Source: [place] 02/05/2017 3:38 PM [facility] REPOSITORY TYPE CODE TESTS RESULT OUT OF REFERENCE UNITS RANGE LAB L700.7000 Normal 0-9 Nonpreg Negative HCGSQUAL NEGATIVE LAB L700.6700 Normal =>Qualitati mIU/mL HCG Qual < 1 ve triggr Performed By: #### L700.6800 ####[facility] [address] [place], [address] URINALYSIS, COMPLETE Collected: 02/05/2017 Status: F Source: [place] 3:38 PM [facility] REPOSITORY Order Comment: Order Date: 02/05/17Has pt arrived? YHow was Urine Obtained? COMPUTER GAME TESTER TO SPECIFY TYPE CODE TESTS RESULT OUT [...] OX 1+ CRYSTAL Performed By: #### L400.0001 ####[facility] [address] [facility] [place], [address] Observed: 02/05/2017 Status: F Source: [place] CULTURE, URINE 3:38 PM [facility] REPOSITORY Order Date: 02/05/17 Urine CultureCulture exhibits no growth. Performed By: #### M100.0650 ####[facility] [address] [facility] [place], [address] Observed: 02/01/2017 Status: F Source: [facility] 4:18 PM FOUNDATION REPOSITORY . MICRO - MicrobiologyPROCEDURE: Urine Culture [*1] Urine BODY SITE:COLLECTED DATE/TIME: 02/01/2017 16:18 EST RECEIVED DATE/TIME: 02/01/2017 21:50 ESTSTART DATE/TIME: 02/01/2017 21:50 EST FREE TEXT SOURCE:FINAL REPORTSFinal Report []Verified Date/Time/Personnel: 2016 07:29 ESTNo growth at 48 hours.Sensitivity testing not indicated.PRELIMINARY REPORTSPreliminary Report []Verified Date/Time/Personnel: 02/02/2017 07:49 ESTNo growth to datePerforming Locations*1: This test was performed at: [facility], [address] [place] [address], [address] , [facility] Performed By: #### CUR ####[facility] [place] [address] CBC-COMPLETE BLOOD CNT Collected: 10/27/2016 Status: F Source: [place] NO DIFF 5:40 AM [facility] REPOSITORY TYPE CODE TESTS RESULT OUT OF [...] fl MPV 10.7 Performed By: #### L100.0500 ####[facility] [address] [place], [place], [address] CBC-COMPLETE BLOOD CNT Collected: 10/26/2016 Status: F Source: [place] NO DIFF 5:08 AM [facility] REPOSITORY TYPE CODE TESTS RESULT OUT OF [...] fl MPV 10.8 Performed By: #### L100.0500 ####[facility] [address] [place], [place], [address] CBC-COMPLETE BLOOD CNT Collected: 10/25/2016 Status: F Source: [place] NO DIFF 5:02 AM [facility] REPOSITORY TYPE CODE TESTS RESULT OUT OF [...] fl MPV 11.0 Performed By: #### L100.0500 ####[facility] [address] [facility] [address] [place], [place], [address] BASIC METABOLIC Collected: 10/25/2016 Status: F Source: [place] PROFILE (BMP) 5:02 AM [facility] REPOSITORY TYPE CODE TESTS RESULT OUT OF [...] 5-15 GAP 7 Performed By: #### L500.2500 ####[facility] [address] [facility] [place], [address] OPERATIVE REPORT Observed: 10/24/2016 Status: F Source: [place] 1:57 PM [facility] REPOSITORY [facility] [address] [place], [place] [address]Kfiafntyh Nhdtwe53/01/17 1344MR#: [id number] Acct: [id number]: ASHLY CROSS Rep #: [id number]: 1970 46 From: Oz Mckeon MDPCP: Michelle Ferrera MD Status: ADM IN YLocation: MS3 AY378-2Lcjuvd of OperationDate of Procedure: 10/24/16Pre-Operative Diagnosis: Painful left patellofemoral replacement, malpositioned femurPost-Operative Diagnosis: Painful left patellofemoral replacement, malpositioned femurSurgery/Procedure Performed:: Revision femoral component left partial knee replacementDescription of Surgical Findings::The previous component was proximalized, extended, and internally rotated.mail handler: Darius TellezType of Anesthesia:: GeneralAnesthesiologist: DeHorta,EricSpecial Medications: 2 g Ancef, 1 g TXA [...] done the trochlea appeared in a more nooksack position and thepatella tracked well. 500 mL [...] High RODOLFO HoseVTE Pharm Prophylaxis ordered?: Yes10/24/16 1357 <Electronically signed by Oz Mckeon MD>Date ____ Oz Mckeon MDCC: Michelle Ferrera MD; Oz Mckeon MD Signed KNEE 1 OR 2 VIEWS Observed: 10/24/2016 Status: F Source: [place] 1:25 PM [facility] REPOSITORY [facility] [address] [place], [place] [address]Affzxzc 4dKnee 1 or 2 ViewsMR#: [id number] Acct: [id number]: SERAFINLeticiaASHLY Rep #: [id number]: 1970 F 46 From: Deloris Jenkins MDPCP: Michelle Ferrera MD Status: ADM INStudy : Knee 1 or 2 Views Date of Exam: 10/24/16Exam# [id number] Ordering Dr: Oz Mckeon MDSTUDY: X-RAY - LEFT KNEEREASON FOR [...] joint. There are surgicalstaples anteriorly. ORDER #: [id number] RAD/Knee 1 or 2 ViewsIMPRESSION:There are surgical changes in the left knee after hemiarthroplasty orrevision.Electronically Signed:Deloris Jenkins MD at 16:04 EDTTel [phone], Service support , EZ: Michelle Ferrera MD; Oz Mckeon MD Taxi Dancer:Signed ,URINE Collected: 10/24/2016 Status: F Source: [place] 10:12 AM [facility] REPOSITORY TYPE CODE TESTS RESULT OUT OF REFERENCE UNITS RANGE LAB L400.8000 Normal Negative HCGUQUAL Negative Result Comment: Very dilute urine specimens, as indicated by a low specificgravity, may not contain instruments sales representative levels of hCG.If is still suspected, a first morning urinespecimen should be collected 48 hours later and tested. Performed By: #### L400.7600 ####[facility] [address] [facility]. [place], [place], [address] Observed: 10/24/2016 Status: F Source: [place] CULTURE, DEEP WOUND 12:00 AM [facility] REPOSITORY Comments: SUPRA PATELLA POUCHGram StainGram Stain 2+ Red Blood Cells Rare White Blood Cells No organisms seen Wound CultureNo growth aerobically. Cult, AnaerobicNo anaerobic bacteria isolated. Performed By: #### M100.1500 ####[facility] [address] [facility] [place], [address] Observed: 10/24/2016 Status: F Source: [place] CULTURE, DEEP WOUND 12:00 AM [facility] REPOSITORY Comments: FEMORAL MEMBRANE #1Gram StainGram Stain Rare White Blood Cells No organisms seen Wound CultureNo growth aerobically. Cult, AnaerobicNo anaerobic bacteria isolated. Performed By: #### M100.1500 ####[facility] [address] [place], [address] Observed: 10/24/2016 Status: F Source: [place] CULTURE, DEEP WOUND 12:00 AM [facility] REPOSITORY Comments: FEMORAL MEMBRANE #2Gram StainGram Stain No White Blood Cells No organisms seen Wound CultureNo growth aerobically. Cult, AnaerobicNo anaerobic bacteria isolated. Performed By: #### M100.1500 ####[facility] [address] [place], [address] Observed: 10/24/2016 Status: F Source: [place] ACID FAST BACT 12:00 AM [facility] CULT/SM REPOSITORY Comments: SUPRA PATELLA POUCH AFB Smear[facility]Fluor [facility] ORIGINAL REPORT ON FILE IN LAB CONTAINS ADDITIONAL TEST SITE INFORMATION. Smear, Acid Fast Tissue Grinding Smear: Negative AFB Cult TESTING PERFORMED AT [facility]. ORIGINAL REPORT ON FILE IN LAB CONTAINS ADDITIONAL TEST SITE INFORMATION. Culture, Acid Fast NO ACID-FAST BACILLI ISOLATED AFTER 6 WEEKS. Performed By: #### M300.1000, M600.2200 ####[facility] [place], [address] Observed: 10/24/2016 Status: F Source: [place] FUNGUS STAIN 12:00 [facility] REPOSITORY Comments: SUPRA PATELLA POUCH Fungus St 8136 TESTING PERFORMED AT [facility]. ORIGINAL REPORT ON FILE IN LAB CONTAINS ADDITIONAL TEST SITE INFORMATION. Fungus Stain No yeast or mold observed. Performed By: #### M300.1000, M600.2200 ####[place] [address] [facility] [place], [address] Observed: 10/24/2016 Status: F Source: [place] ACID FAST BACT 12:00 [facility] CULT/SM REPOSITORY Comments: FEMORAL MEMBRANE #2 AFB Smear/Fluor [facility]. ORIGINAL REPORT ON FILE IN LAB CONTAINS ADDITIONAL TEST SITE INFORMATION. Smear, Acid Fast Tissue Grinding Smear: Negative AFB Cult TESTING PERFORMED AT [facility]. ORIGINAL REPORT ON FILE IN LAB CONTAINS ADDITIONAL TEST SITE INFORMATION. Culture, Acid Fast NO ACID-FAST BACILLI ISOLATED AFTER 6 WEEKS. Performed By: #### M300.1000, M600.2200 ####[facility] [address] [place], [place], [address] Observed: 10/24/2016 Status: F Source: [place] FUNGUS STAIN 12:00 [facility] REPOSITORY Comments: FEMORAL MEMBRANE #[address] 8136 [facility] ORIGINAL REPORT ON FILE IN LAB CONTAINS ADDITIONAL TEST SITE INFORMATION. Fungus Stain No yeast or mold observed. Performed By: #### M300.1000, M600.2200 ####[facility] [address] [place], [place], [address] Observed: 10/24/2016 Status: F Source: [place] ACID FAST BACT 12:00 [facility] CULT/SM REPOSITORY Comments: FEMORAL MEMBRANE #1 AFB Smear/Fluor TESTING PERFORMED AT [facility]. ORIGINAL REPORT ON FILE IN LAB CONTAINS ADDITIONAL TEST SITE INFORMATION. Smear, Acid Fast Tissue Grinding Smear: Negative AFB Cult TESTING PERFORMED AT [facility]. ORIGINAL REPORT ON FILE IN LAB CONTAINS ADDITIONAL TEST SITE INFORMATION. Culture, Acid Fast NO ACID-FAST BACILLI ISOLATED AFTER 6 WEEKS. Performed By: #### M300.1000, M600.2200 ####[facility] [place], [place], [address] Observed: 10/24/2016 Status: F Source: [place] FUNGUS STAIN 12:00 AM [facility] REPOSITORY Comments: FEMORAL MEMBRANE #[address] 8136 TESTING PERFORMED AT [facility]. ORIGINAL REPORT ON FILE IN LAB CONTAINS ADDITIONAL TEST SITE INFORMATION. Fungus Stain No yeast or mold observed. Performed By: #### M300.1000, M600.2200 ####[place] [address] [place], [address] 12 LEAD ELECTROCARDIOGRAM Observed: 10/10/2016 Status: F Source: TAVO 2:42 PM PENDING SALE TO [facility] REPOSITORY [facility] [address] [place] [address]ZMF - SDC10/04/16 1437MR#: [id number] Acct: [id number]: ASHLY CROSS Rep #: [id number]: 1970 46 From: Wild Lord MDAttending Dr: Oz Mckeon MD Status: PRE INOrdering Dr: Oz Mckeon MD Date: 10/04/16Location: ACINP Sex: F CAdmitted:Test Reason :Blood Pressure : / mmHGVent. Rate : 063 BPM Atrial Rate : 063 BPMP-R Int : 132 ms QRS Dur : 088 msQT Int : 388 ms P-R-T Axes : 031 013 016 degreesQTc Int : 397 msNormal sinus rhythmNormal ECGConfirmed by WILD LORD ([id number]), scientific editor GILMAR ZENG ([id number]) on 10/10/2016 2:42:25 PMReferred By: LIV LUKE Confirmed By:WILD LORD 1442Date Wild Lord MDCC: Wild Lord MD; Michelle Ferrera MD Date Dictated: 10/04/161436Date Transcribed: 10/04/161436Transcriptionist:Signed BASIC METABOLIC Collected: 10/04/2016 Status: F Source: TAVO PROFILE (BMP) 3:45 PM [facility] REPOSITORY TYPE CODE TESTS RESULT OUT OF [...] GAP 6 Performed By: #### L500.2500, L100.0100 ####[facility] [address] [place], [place], [address] CBC W/DIFF, AUTOMATED Collected: 10/04/2016 Status: F Source: [place] 3:45 PM [facility] REPOSITORY TYPE CODE TESTS RESULT OUT OF [...] Lymph 2.96 Performed By: #### L500.2500, L100.0100 ####[facility] [address] [place], [address] Observed: 10/04/2016 Status: C Source: [place] MRSA/SAID SCREEN 3:45 PM [facility] REPOSITORY RESULTS CALLED TO GRACIELA AT [facility] 10/06/16 1414 Lolis Linton. REPORT READ BACK BY SAME. Copy of report sent to Infection Control Printer MS#[id number] 10/06/16 2606 CRIS. MRSA/SAID SCRNS. AUREUS S. aureus PositiveMRSA MRSA Negative Performed By: #### M100.651 ####[facility] [address] [place], [address] CBC (AO) Collected: 09/20/2016 Status: F Source: [facility] 9:39 AM [facility] REPOSITORY TYPE CODE TESTS RESULT OUT [...] 0.10 Absolute Performed By: #### CBCO ####[place] [address] [address] ERYTHROCYTE SED RATE Collected: 09/20/2016 Status: F Source: [place] 9:39 [facility] REPOSITORY TYPE CODE TESTS RESULT OUT OF REFERENCE UNITS RANGE LAB ESR(LOINC) 0-20 mm/hr Erythrocyte Sed 3 Rate Performed By: #### ESR ####[address] [address] C-REACTIVE PROTEIN Collected: 09/20/2016 Status: F Source: [facility] 9:39 [facility] REPOSITORY TYPE CODE TESTS RESULT OUT OF REFERENCE UNITS RANGE LAB CRP(LOINC) 0.00-0.80 mg/dL 0.76 C-Reactive Protein Performed By: #### CRP ####[address] [address] [address] LOW EXT W/O Observed: 09/15/2016 Status: C Source: [facility] CONTRAST LEFT 7:35 AM SYSTEM REPOSITORY Patient Name: ASHLY CROSS CT Exam Date/Time 09/14/2016 14:02:[address] Low Ext w/o Contrast Left Ordering Physician MD LINDA, OZ SANDI Accession Number [id number] CPT4 Codes 64643 () Reason For Exam lt knee tibial [...] EMERGENCY DEPARTMENT Observed: 08/28/2016 Status: F Source: [place] SUMMARY 1:05 AM [facility] RE[facility]ITORY [facility] [address] [place], [place] [address]Cfbmhromg Department SummaryMR#: [id number] Acct: [id number]: ASHLY CROSS Rep #: [id number]: 1970 46 From: Deloris Drummond MDPCP: Iban TORREZ,Michelle Status: DEP ERDATE OF SERVICE: 08/26/2016CHIEF COMPLAINT:Left leg pain.AGUERO HISTORY:The patient is a 46-year-old female who had bilateral knee replacement surgeries [place]. 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 She states [...] physician.DISPOSITION:Discharge.IMPRESSION:Superficial clot, left leg.Deloris Drummond MDT: NTSJOB: [id number] <Electronically signed by Deloris Drummond MD>Date Deloris Drummond MDCosigner Signature (If Indicated): Date ___CC: Michelle Ferrera MD Date Dictated: 08/26/16 1202Date Transcribed: 1202Transcriptionist:Signed VENOUS DUPLEX LOWER Observed: 08/27/2016 Status: F Source: [place] EXTREMITY 11:59 PM [facility]ITORY [facility] [address] [place], [place] [address]Hrxjcc Duplex US, Ijctkpwqyj24/03/17 1114MR#: [id number] Acct: [id number]: ASHLY CROSS Rep #: [id number]: 1970 46 From: Eddy Du MDAttina Dr: Status: DEP EROrdering Dr: Deloris Drummond [...] smallsaphenousvein. Ordering Physician: Deloris DrummondReferring Physician: Deloris DrummodnPerformed By: Yun Spangler RDCS, RVT 08/27/16 2358Date Eddy Du MDCC: Deloris Drummond MD; Michelle Ferrera MD Date Dictated: 08/26/16 1114Date Transcribed: 08/27/16 2358Transcriptionist:Signed DISCHARGE INSTRUCTION Observed: 08/26/2016 Status: F Source: [place] 12:02 PM [facility]ITORY [facility] [address] [place], [place] [address]Qmxjyfdyq Cnzccppvqyk26/03/17 1159MR#: [id number] Acct: [id number]: ASHLY CROSS Rep #: [id number]: 1970 46 From: Deloris Drummond MDPCP: Michelle Ferrera MD Status: REG ERED Disposition- Plan [...] your Primary Care Provider. Call [facility] ([phone])or report to the closest Emergency Room.Call 911 if necessary.08/26/16 1202 <Electronically signed by Deloris Drummond MD>Date Deloris Drummond [facility] BETHANYosigner Signature (If Indicated): Date CC: Michelle Ferrera MD ALLERGIES ALLERGIES DATE TYPE / CODE NAME / CODE REACTION SEVERITY SOURCE 04/23/2017 Drug No Known Unknown [facility] Allergy/4160 Allergies/0 [place] [address](SNOMED 9003457(RXNOR Repository CT) M) 02/05/2017 Drug No Known [facility] Allergy/4160 Allergies/0 [place] [address](SNOMED 6252564(RXNOR Repository CT) M) ENCOUNTERS ENCOUNTERS ADMIT/DISCHARGE ACCOUNT NUMBER ADMITTING ENCOUNTER LOCATION SOURCE CLASS 07/03/2017 [id number] Ambulatory [facility] ding:PT Repository 06/01/2017 [id number] Ambulatory [facility] ding:[facility]S Repository 05/09/2017/05/10/19 [id number] Linda, Inpatient [address] ding:IK1Zgnk Repository : SC996Adf: 1 04/23/2017 [id number] Ambulatory BMSBuilding: [facility] Repository 04/01/2017/04/01/19 [id number] Emergency [place] [facility] ding:ED Repository 02/14/2017/02/15/20 [id number] Ambulatory [place] 17 [facility] ding:SDCRoom Repository : AC11 02/05/2017/02/06/20 [id number] Emergency [place] 17 [facility] ding:ED Repository 02/01/2017/02/06/20 [id number] Ambulatory BBuilding:DR [place] 17 [facility] Repository 12/01/2016/12/02/19 [id number] Emergency BBuilding:MINI [place] 17 [facility] Repository 10/24/2016/10/28/19 [id number] Linda, Inpatient [place] 17 [facility] ding:ME6Fiwk Repository : JO626Wkb: 1 09/20/2016/09/21/19 [id number] Ambulatory [address] Health :[facility] Repository 09/20/2016/09/21/19 [id number] Ambulatory BBuilding:[address] Repository 09/14/2016 [id number] Ambulatory [facility] Repository 08/26/2016/08/27/19 [id number] Emergency [place] 17 [facility] ding:ED Repository PAYERS PAYERS ENCOUNTER GUARANTOR PAYER SUBSCRIBER SOURCE 07/03/2017 ASHLY I Primary AHSLY I [place] [id number] N Insurance:CARESOURCEP MANIONDOB: [facility] Number: [id number], [place] [id number] Repository [address]Ofn: 330) Date:2016-07-24 O [phone] () [address]ATTN: [place] [address]SS: 07/03/2017 Secondary NOT GIVENUNK [place] Insurance:SELF PAY [facility] Number: Effective Repository Date:2017-06-28 06/01/2017 ASHLY I Primary ASHLY I [place] [id number] N Insurance:CARESOURCEP MARTHEYDOB: [facility] Number: [id number], [place] [id number] Repository [address]Nsl: ([phone]) Date:2017-06-01P O [phone] (HP) [address]ATTN: [place] [address]QH: 06/01/2017 Secondary NOT GIVENUNK [place] Insurance:SELF PAY [facility] Number: Effective Repository Date:2017-06-01 05/09/2017 ASHLY Primary ASHLY [place] [id number] N Insurance:CARESOURCEP [facility] Number: [id number], [place] [id number] Repository [address]Gfd: (330) Date:2017-04-02P O [phone] (HP) [address]ATTN: [place] [address]AC: 05/09/2017 Secondary NOT GIVENUNK [place] Insurance:SELF PAY [facility] Number: Effective Repository Date:2017-04-02 04/23/2017 ASHLY Primary ASHLY [place] [id number] N Insurance:CARESOURCEP [facility]DOB[facility] Number: [id number], [place] [id number] Repository [address]Vju: (330) Date:2017-04-02P O [phone] (HP) [address]ATTN: [place] [address]BU: 04/23/2017 Secondary NOT GIVENUNK [place] Insurance:SELF PAY [facility] Number: Effective Repository Date:2017-04-23 04/01/2017 Ashly Primary Ashly [place] [id number] N Insurance:CARESOURCEP MartheyDOB: [facility] Number: [id number] Heights, [place] [id number] Repository [address]Tif: (330) Date:2017-04-01P O [phone] (HP) [address]ATTN: [place] [address]FG: 04/01/2017 Secondary NOT GIVENUNK [place] Insurance:SELF PAY [facility] Number: Effective Repository Date:2017-04-01 02/14/2017 ASHLY Primary ASHLY [place] [id number] N Insurance:CARESOURCEP MARTHEYDOB: [facility] [place] olicy Number: [id number] [place], [place] [id number] Repository [address]Qdv: (185) Date:[phone] (HP) [address]ATTN: [place] [address]SX: 02/05/2017 ASHLY Primary ASHLY [place] [id number] N Insurance:SELF PAY MARTHEYUNK [place], [place] Number: Effective Repository [phone]: ([phone]) Date: [phone] (HP) 02/01/2017 [facility] I [facility] MARTHEYDOB: Insurance:CARESOURCE MARTHEYDOB: Foundation N MEDICAIDPolicy [id number] Repository [place] Number: [address] [place], [place] [id number] [place] [address]~SANDTHE OUTER BANKS HOSPITALNI Date:2017-02-01 [id number]: 330) N@170 Systems.[facility] MEDICAL CENTERel: [id number] [phone] Name:X[address] Box (HP)Tel: (000) (HP) [address], [place] [address] () [address]UV: 12/01/2016 [facility] I [facility] MARTHEYDOB: Insurance:SELF MARTHEYDOB: Foundation N PAYPolicy Number: [id number] Repository [place] Effective [address] [place], [place] Date:2016-12-01 [place] [address]~SANDIMANIO [id number] Name:[phone] [id number]: 330 N@[email or web address] AREA REGIONAL MEDICAL CENTERel: [phone] ()Tel: (000) (HP) 000-0000 (WP) 12/01/2016 Secondary [facility] Insurance:CARESOURCE MARTHEYDOB: [facility] MEDICAIDPolunitypoint health-[facility] [id number] Repository Number: [address] [id number] [place], [place] Date:2016-12-01 [address]Wso: [phone] Name:O Box ()Tel: (000) 30[place], [place] [address] (WP) [address]DK: 10/24/2016 [facility] Primary Insurance:MED ASHLY [place] [id number] N [facility]PITALPolunity[facility] MARTHEYDOB: Community [place] Number: [id number] [place], [place] [id number] Repository [address]Ded: 330) Date:1853-18-17UQ [phone] () [address]SNHGIOGPB, [place] [address]CC: CHECK WEBSITE 09/20/2016 [facility] MARTHEYDOB: Insurance:CARESOURCEP MANIONDOB: [facility] N oss health Number: [id number] Repository [facility] [id number] [place], [place] Date:2013-07-24 [address]Hlo: [phone] [phone] () Name:[facility] [address] [place] [address]RK: 09/20/2016 [facility] MARTHEYDOB: Insurance:BENEFIT MARTHEYDOB: [facility] N SERVICESPolunitypoint health-[facility] [id number] Repository [place] Number: [address] [place], [place] [id number] [place] [address]~SANDIMANI Date:2016-10-07 [address]Isc: 330 [email or web address] MED[facility] CENTERel: [id number] [phone] Name:C822Glenn CHOI ()Tel: 000) (HP) [facility], 000[address]0000 (WP) [place] [address]IU: 09/20/2016 Secondary [facility] Insurance:CARESOURCE MARTHEYDOB: Foundation MEDICAIDPolicy [id number] Repository Number: [address] [place] [id number] [place], [place] Date:2016-10-07 [address]Kek: [phone] Name:[address] ()Tel: [phone]) [phone], [place] [address] (WP) [phone]: 09/14/2016 [facility] MartheyDOB: Insurance:Medical MartheyDOB: System [id number] N [facility] [id number] Repository [place] Number: Effective [place], [place] Date: [address]Pab: () 09/14/2016 Secondary [facility] Insurance:CareSourceP MartheyDOB: System oss health Number: [id number] Repository Effective Date: 08/26/2016 [facility] Insurance:MED ASHLY [place] [id number] N [facility] MARTHEYDOB: [facility] [place] Number: [id number] [place], [place] [id number] Repository [address]Drd: (588) Date:7489-59-87NM [phone] () [address]DZJKVRITA, [place] [address]QO: CHECK WEBSITE
--- NOTE | 2017-07-03 09:01 | HP.PTEVAL_ITS ---
Patient's Visit Information BREN MARIE is a 47 year old F referred to Physical Therapy by MD VERO Reina with a diagnosis of L TKA. Date of Evaluation: 07/03/17 Physical Therapist: Richard Manzanares PT, - Visit Plan Frequency: 2-3x /Week Duration: 4-6 Weeks Plan: L knee stretching and strengtheing, A/PROM and mobs, balance and proprio, core stab, bike, and HEP - Subjective Subjective: DOS: 05/09/17. Pt reports a chronic Hx of L knee surgeries and complications. Pt reports her patella was constantly sliding laterally in her knee which results is sig pain. Pt reports she had 3 weeks of rehab on her L knee at a different facility, but was displeased with her program and progress, so she decided to come here in hopes of getting better. Pt reports Dr. Gan wants her to get better ROM, as he has discussed with her maybe needing to get a manipulation if her ROM does not progress. Pt is not employed at this time. Pt reports diff with stairs as she has to negotiate them one step at a time. Pt reports T and N surrounding her incision. Pt reports she is unable to sleep at this time secondary to pain. 0/10 pain at rest, 7/10 at worst (just walking around) - Pain L knee Pain Intensity (Out of 10): 0 Pain Intensity Range: 7 - Objective Neuro: B LE sensation is WNL to light touch. B achilles reflex= 1/3. Palpation : Pt presents with crepitus on lat joint line and over patella with AROM. Incision healed with no signs of infection. ROM: R knee 0-125 degrees; L knee 0 -11-91 degrees. MMT: R knee 5/5 throughout. L knee 3+/5 and painfull with flex and ext. Girth at joint line: L knee 43 cm, R knee 41 Cm - Goals Goal 1:: Decrease L knee pain x 50% to aid with sleep Goal Time Frame: 4-6 Weeks Goal 2:: Increase L knee strength x 1 grade to aid with work requirements Goal Time Frame: 4-6 Weeks Goal 3:: Increase L knee ROM x 30 degrees to aid with restoring a more normal gait pattern Goal Time Frame: 4-6 Weeks Goal 4:: I with HEP Goal Time Frame: 4-6 Weeks - Rehabilitation Potential Physical Therapy Diagnosis: L knee pain, weakness, and limited ROM secondary to L TKA Rehabilitation Potential: Good - Anticipated Interventions Patient/Client Instruction: Educate patient on: Condition, Plan of Care For the Purpose of:: To improve self management Therapeutic Exercise to Include: Strength training, Endurance training, Balance training, Flexibilty training, Gait and locomotor training, Passive ROM, Active ROM, Dynamic Lumbar Stabilization For the Purpose of:: To decrease pain, To increase ROM, To improve muscle performance and motor function Cryotherapy (ice pack, ice massage): Yes For the Purpose of:: To decrease pain Thank you for the opportunity to evaluate your patient. For Medicare and Medicare HMO plans, please review the plan of care and approve it. It will need to be FAXED BACK to us at [phone] for Medicare purposes. Please let me know if there are questions or concerns regarding this plan of care. Physician Signature: Date:
--- NOTE | 2017-08-22 15:02 | HP.PT.NRP ---
HP - Discharge Summary (1) - Patient Information BREN MARIE was seen in my office for initial evaluation on 07/03/17. The following Plan of Care was established for this patient: Initial Frequency: 2-3x /Week Initial Duration: 4-6 Weeks - Anticipated Interventions Patient/Client Instruction: Educate patient on: Condition, Plan of Care For the Purpose of:: To improve self management Therapeutic Exercise to Include: Strength training, Endurance training, Balance training, Flexibilty training, Gait and locomotor training, Passive ROM, Active ROM, Dynamic Lumbar Stabilization For the Purpose of:: To decrease pain, To increase ROM, To improve muscle performance and motor function Cryotherapy (ice pack, ice massage): Yes For the Purpose of:: To decrease pain This patient was last seen in our office . Pertinent comments regarding their Physical therapy will appear below: Pt was treated for 7 PT visits for her TKA through the date of 07/23/17. Pt has not returned through todays date, and is therefore discontinued at this time At this point I will be discontinuing this patient from physical therapy. I would be happy to see this patient again in the future if found appropriate by the physician. Thank you! Richard Manzanares, PT,
== END 2017-07-23 19:00 | disposition home or self-care (01) ==
LOC: PT 08:30
PROVIDERS: Family Provider Family Medicine; PCP Family Medicine; Visit Provider Specialist
DX: Z96.652 Presence of left artificial knee joint (principal); Z47.1 Aftercare following joint replacement surgery
CPT/HCPCS: 97110; 97161

== ENCOUNTER → 2017-09-03 16:05 | Outpatient (CLI) | payer MEDICAID, SELFPAY ==
--- NOTE | 2017-09-03 16:05 | DT_ITS ---
This patient was seen during an EMR downtime August 27, 2017 - September 03, 2017. This patient may have a combination of paper and electronic documentation or all paper documentation. All documentation is viewable within the e-chart portion of [employer] for each patient visit.
== END ==
PROVIDERS: Family Provider Family Medicine; PCP Family Medicine; Visit Provider Physician Assistant
DX: L72.3 Sebaceous cyst (principal)
CPT/HCPCS: 87070; 87077; 87205

== ENCOUNTER → 2018-06-18 09:07 | Outpatient (CLI) | payer OTHER, SELFPAY ==
[2018-06-18 09:32] LABS: Erythrocyte Sedimentation Rate 2 mm/hr (0-20)
[2018-06-18 09:34] LABS: Absolute Lymphocyte Count 2.24 X10^3/ul (0.83-4.51); Absolute Neutrophil Count 4.3 X10^3/uL (2.0-7.7); Basophil# 0.08 X10^3/uL; Basophil% 1.1 % (0-1); Eosinophil# 0.19 X10^3/uL; Eosinophils% 2.6 % (0-5); Hematocrit 48.2 % (37-47); Hemoglobin 15.9 g/dl (12.0-15.0); Lymphocyte # 2.24 X10^3/ul (4.0); Lymphocyte % 30.7 % (19-41); Mean Corpuscular Hgb 29.6 pg (27.0-32.0); Mean Corpuscular Volume 89.8 fL (81-99); Monocyte# 0.43 X10^3/uL; Monocyte% 5.9 % (0-10); Neutrophil # 4.34 X10^3/uL (2.7-7.7); Neutrophil % 59.6 % (47-70); Platelet Count 252 K/mm3 (150-450); RBC Distribution Width CV 13.5 % (11.6-14.6); RBC Distribution Width SD 44.6 fl (35.1-43.9); Red Blood Count 5.37 M/mm3 (4.2-5.4); White Blood Count 7.3 K/mm3 (4.4-11.0)
[2018-06-18 09:35] LABS: POSITIVE COUNT NO; POSITIVE DIFFERENTIAL NO; POSITIVE MORPHOLOGY NO
[2018-06-18 09:55] LABS: CRP 3.75 mg/L (0.0-3.0)
== END ==
LOC: LAB 09:14
PROVIDERS: Family Provider Family Medicine; PCP Family Medicine; Referring Provider Orthopaedic Surgery; Visit Provider Orthopaedic Surgery
DX: M25.562 Pain in left knee (principal)
CPT/HCPCS: 36415; 85025; 85652; 86140

== ENCOUNTER → 2019-01-07 13:29 | Outpatient (CLI) | payer OTHER, SELFPAY ==
[2019-01-07 13:24] VITALS: BMI 42.0
--- NOTE | 2019-01-07 13:32 | RAD_ITS ---
STUDY: X-RAY - LEFT KNEE REASON FOR EXAM: Pain, surgery in 2018. TECHNIQUE: 4 view(s) of the knee. COMPARISON: None. FINDINGS: There is a left total knee arthroplasty without evidence of complication. There is superficial venous varicosities at the medial aspect. RAD/Knee 4 or More Views IMPRESSION: Uncomplicated left total knee arthroplasty. Electronically Signed: Tony Blanco MD at 11:56 EDT Tel , Service support ,
--- NOTE | 2019-01-07 14:12 | RAD_ITS ---
STUDY: X-RAY - LEFT KNEE REASON FOR EXAM: Evaluation of total knee arthroplasty with slight flexion. TECHNIQUE: 2 view(s) of the knee. COMPARISON: Radiographs obtained earlier the same day. FINDINGS: There is a left total knee arthroplasty without evidence of complication. There are superficial venous varicosities. RAD/Knee 1 or 2 Views IMPRESSION: Uncomplicated left total knee arthroplasty. Electronically Signed: Tony Blanco MD at 15:07 EDT Tel , Service support ,
== END ==
LOC: HPRAD 13:29
PROVIDERS: Family Provider Family Medicine; PCP Family Medicine; Referring Provider Orthopaedic Surgery; Visit Provider Orthopaedic Surgery
DX: M25.562 Pain in left knee (principal); Z96.652 Presence of left artificial knee joint
CPT/HCPCS: 73560; 73564

== ENCOUNTER → 2020-04-23 07:37 | Outpatient (CLI) | payer OTHER, BC, SELFPAY ==
[2019-01-10 08:05] VITALS: BMI 42.0
--- NOTE | 2020-04-23 07:54 | CT_ITS ---
STUDY: CT RIGHT KNEE WITHOUT CONTRAST REASON FOR EXAM: Female, 50 years old. Right knee pain x 2 weeks, prior right arthroresurfacing. RADIATION DOSAGE (If Supplied By Facility): CTDIvol = ( 15.35 ) mGy, DLP = ( 493.14 ) mGycm TECHNIQUE: Transaxial CT imaging of the knee was performed. Coronal and sagittal images were reformatted. Individualized dose optimization techniques were used for this CT. COMPARISON: None. FINDINGS: Patellofemoral prosthetic components are present with the metal articular component within the trochlear groove and the patellar undersurface component is radiolucent although the tract polo are seen in the underlying bone. No demonstrated hardware complications. No abnormal lucency or osteolysis is seen at the bone hardware interface. No demonstrated cortical erosion or bony destruction. A tiny joint effusion is present. The medial compartment is mildly narrowed. Subchondral cyst are present beneath the lateral tibial spine. Mild peripheral cortical spurring is present in the medial lateral compartments. No visualized acute fracture or osteonecrosis. Normal proximal tibiofibular articulation. The quadriceps tendon is grossly normal. The patellar tendon is grossly normal. The soft tissues are unremarkable. Multiple small varicose veins are present around the knee joint. CT/Extremity Lower without Contra IMPRESSION: 1. Patellofemoral prosthetic components with no demonstrated hardware complications. 2. Mild osteoarthritis 3. No fracture or osteonecrosis. Electronically Signed: Bronson Valdivia MD at 20:54 EST , Service support ,
[2020-04-23 08:31] LABS: Erythrocyte Sedimentation Rate 8 mm/hr (0-30)
[2020-04-23 08:38] LABS: CRP 6.25 mg/L (0.0-3.0)
[2020-04-23 08:39] LABS: Absolute Lymphocyte Count 2.82 X10^3/uL (0.83-4.51); Absolute Neutrophil Count 6.3 X10^3/uL (2.0-7.7); Basophil# 0.08 X10^3/uL; Basophil% 0.8 % (0-1); Eosinophil# 0.14 X10^3/uL; Eosinophils% 1.4 % (0-5); Hematocrit 49.1 % (37-47); Hemoglobin 16.2 g/dL (12.0-15.0); Lymphocyte # 2.82 X10^3/ul (4.0); Lymphocyte % 28.6 % (19-41); Mean Corpuscular Hgb 29.6 pg (27.0-32.0); Mean Corpuscular Volume 89.8 fL (81-99); Mean Platelet Vol. 10.1 fl (6.2-12.0); Monocyte# 0.53 X10^3/uL; Monocyte% 5.4 % (0-10); NRBC Flagged by Analyzer 0 % (0-5); Neutrophil # 6.25 X10^3/uL (2.7-7.7); Neutrophil % 63.5 % (47-70); Platelet Count 274 K/mm3 (150-450); RBC Distribution Width CV 12.4 % (11.6-14.6); RBC Distribution Width SD 40.8 fl (35.1-43.9); Red Blood Count 5.47 M/mm3 (4.2-5.4); White Blood Count 9.9 K/mm3 (4.4-11.0)
== END ==
PROVIDERS: PCP Family Medicine; Referring Provider Physician Assistant; Visit Provider Physician Assistant
DX: M17.11 Unilateral primary osteoarthritis, right knee (principal)
CPT/HCPCS: 36415; 73700; 85025; 85652; 86140

== ENCOUNTER 2020-12-24 19:17 | Observation (INO) | payer OTHER, BC, SELFPAY ==
[2020-12-24 19:18] VITALS: BP 121/74; PULSE 88; RESP 16; TEMP 36.5; O2SAT 98; BMI 44.6
[2020-12-24 20:23] LABS: Squamous Epithelial Cells - UA 0 SEEN /hpf (5-10); White Blood Cells 0 SEEN /hpf (0-5)
[2020-12-24 20:24] LABS: Color, Urine Yellow (Yellow); Glucose, Dipstick Normal (Normal); Ketone-Dipstick 15 mg/dl (Negative); Leukocyte Esterase-Dipstick Negative /ul (Negative); Nitrite-Dipstick Negative (Negative); Occult Blood-Urine 250 /ul (Negative); Protein-Dipstick Negative (Negative); Urine Bilirubin Dipstick Negative (Negative); Urine Clarity Clear (Clear); Urine Urobilinogen 1 mg/dl (Normal)
[2020-12-24 20:29] LABS: Absolute Lymphocyte Count 2.46 X10^3/uL (0.83-4.51); Absolute Neutrophil Count 9.1 X10^3/uL (2.0-7.7); Basophil# 0.06 X10^3/uL; Basophil% 0.5 % (0-1); Eosinophil# 0.14 X10^3/uL; Eosinophils% 1.1 % (0-5); Hematocrit 46.5 % (37-47); Hemoglobin 14.8 g/dL (12.0-15.0); Lymphocyte # 2.46 X10^3/ul (0.83-4.51); Lymphocyte % 19.2 % (19-41); Mean Corp Hgb Conc 31.8 g/dL (32-36); Mean Corpuscular Volume 91.2 fL (81-99); Monocyte# 1.01 X10^3/uL; Monocyte% 7.9 % (0-10); NRBC Flagged by Analyzer 0 % (0-5); Neutrophil # 9.08 X10^3/uL (2.7-7.7); Neutrophil % 70.9 % (47-70); Platelet Count 268 K/mm3 (150-450); RBC Distribution Width CV 13.3 % (11.6-14.6); RBC Distribution Width SD 45.7 fl (35.1-43.9); White Blood Count 12.8 K/mm3 (4.4-11.0)
[2020-12-24 20:30] LABS: Bacteria RARE /hpf (None Seen); Mucous, Urine RARE /hpf (<or=2+); Red Blood Cells-Urine 0-5 SEEN /hpf (0-5)
[2020-12-24 20:39] LABS: Internal QC Validated? YES +Cl - CLEAR BKGD; Pregnancy, Serum, hCG Quali. NEGATIVE Negative
[2020-12-24 20:46] LABS: AST(SGOT) 10 U/L (15-37); Alanine Aminotransfer ALT/SGPT 20 U/L (13-56); Albumin, Serum 3.4 g/dL (3.2-5.0); Alkaline Phosphatase 66 U/L (45-117); Anion Gap 5 (5-15); BUN 13 mg/dL (7-18); Bilirubin, Direct 0.07 mg/dL (0.00-0.30); Calcium,Total 8.8 mg/dL (8.5-10.1); Chloride 104 mmol/L (98-107); Creatinine, Serum 0.76 mg/dL (0.55-1.02); EST Glomerular Filtration Rate 85 mL/min (>60); Est Glom Filt Rate - Afr Amer 103 mL/min (>60); Estimated Creatinine Clearance 77.32 ml/min; Globulin 4.2 g/dL (2.2-4.2); Glucose 109 mg/dL (74-106); Lipase 101 U/L (73-393); Potassium 3.7 mmol/L (3.5-5.1); Protein, Total 7.6 g/dL (6.4-8.2); Sodium Level 136 mmol/L (136-145)
--- NOTE | 2020-12-24 20:58 | EDS_ITS ---
HPI HPI - GI History of Present Illness Chief Complaint: Abd Pain Informant: patient Abdominal Pain/Flank Pain Onset: Days Context: Gradual Onset Timing: Continuous Quality: Aching Location: RUQ Current Severity: Moderate Maximum Severity: Moderate Worsened by: Nothing Relieved by: Nothing Nausea/Vomiting/Emesis GI Symptom: Positive for Nausea and Vomiting Onset: Days Severity: Mild Diarrhea/Melena/Hematochezia GI Symptom: Negative for Diarrhea Associated Symptoms Associated Symptoms: Negative for Dysuria, Frequency and Hematuria Narrative Narrative: Pain under control this week and they would admit her and possibly do the surgery early. She states she has had nausea and vomiting. She denies any fever. States she is already had a CAT scan and ultrasound done during this outpatient work-up. She denies prior abdominal surgeries.50-year-old female known history of cholelithiasis. Been diagnosed in the last couple weeks. Saw her general surgeon today Dr. Miguel Ramirez. He has her scheduled for a cholecystectomy next Sunday. She was having quite a bit of pain he told her if Prior similar symptoms: Yes Recent Illness/Hospitalization: No PFSH PFSH Medical History Depression Laceration of left index finger Home Medications celecoxib 100 mg PO DAILY 12/24/20 [History Last Taken Unknown] sertraline 100 mg PO DAILY 12/24/20 [History Last Taken Unknown] trazodone 50 mg PO QHS 12/24/20 [History Last Taken Unknown] Allergy/AdvReac Type Severity Reaction Status Date / Time No Known Allergies Allergy Verified 12/24/20 20:26 Surgical History H/O knee surgery Social History Smoking Status: Current every day smoker tobacco type: cigarettes ROS ROS ED ROS Narrative Nausea and vomiting. Abdominal pain. Review of Systems ROS Unobtainable: Denies due to encephalopathy Constitutional Constitutional ED: Denies chills or fever(s) ENT ENT ED: Denies ear pain or sore throat Cardiovascular Cardiovascular: Denies chest pain Respiratory/Chest Respiratory/Chest: Denies dyspnea Gastrointestinal Gastrointestinal: Reports abdominal pain, nausea and vomiting; Denies constipation or diarrhea Genitourinary Genitourinary ED: Denies dysuria or hematuria Musculoskeletal Musculoskeletal: Denies myalgias Integumentary Denies rash Neurologic Neurologic: Denies headache(s) Psychiatric Psychiatric: Denies depression Endocrine Endocrinology: Denies polyuria Hematologic/Lymphatic Hematologic/Lymphatic: Denies easy bruising Allergic/Immunologic Allergic/Immunologic ED: Denies urticaria EXAM Physical Exam Narrative Exam Narrative: 50-year-old female vital signs stable afebrile. HEENT exam unremarkable. Lungs are clear. Heart regular rate and rhythm no murmur. Abdomen soft. Tender right upper quadrant. Positive Storm sign. Other quadrants are nontender. Nondistended. No signs of obstruction. Moving all 4 extremities. Back nontender. Neurologically she is awake and alert. Exam consistent with hypotension biliary colic. Rule out cholecystitis. Const Vital Signs: 12/24/20 19:18 Temperature 97.7 F L Temperature Source Temporal Pulse Rate 88 Respiratory Rate 16 Blood Pressure 121/74 H Blood Pressure Mean 89 Pulse Ox 98 Oxygen Delivery Method Room Air Positive well nourished and well developed; Negative for obese, cachectic, contractures or unkempt General Appearance ED: well developed and NAD; Negative for unkempt, cachectic, contractures or pallor Nutritional Appearance: Negative for cachectic or obese HEENT Reports moist mucous membranes normocephalic and atraumatic; Negative for trauma or tenderness Eyes PERRL and EOMs intact bilaterally Neck no lymphadenopathy, supple and no JVD General: Negative for tenderness Resp normal respiratory effort and clear to auscultation bilaterally Auscultation: Negative for rales, rhonchi or wheezes Cardio regular rate, regular rhythm, S1 normal heart sound, S2 normal heart sound and no murmurs GI non-distended and no masses; Negative for non-tender GI Narrative: Storm sign right upper quadrant. Inspection: Negative for abdominal distention Auscultation: normoactive bowel sounds; Negative for hypoactive bowel sounds Palpation: soft and tender; Negative for guarding or rigid Back/Spine no CVA tenderness Extremity full ROM General Extremety ED: Negative for edema or tenderness General Extremity: Negative for edema Neuro moves all extremities Sensorium / Orientation: alert, oriented to person, oriented to place and oriented to time; Negative for orientation impaired, confused, lethargic or stuporous Motor Exam: strength 5/5 throughout Psych mental status grossly normal Appearance: Negative for unkempt Skin no wounds General Skin Exam: Negative for jaundice or pallor Lesions: no lesions Rashes: no rashes MDM MDM MDM Narrative Medical decision making narrative: Female with known gallstones by ultrasound on CAT scan. Basically having worsening pain. Patient be treated with IV Toradol, morphine and Zofran to try to improve her pain. Her cough Plan. Patient will be admitted to her service for possible laparoscopic cholecystectomy tomorrow. Lab Data Attestation: I reviewed the patient's lab results. Lab results narrative: CBC shows white count 12.8. Hemoglobin 14.8. Sodium 136. Gap 5 normal BUN and creatinine. Liver enzymes normal lipase normal 1011 UA negative. Serum test negative. Labs: Laboratory Results - last 24 hr 12/24/20 12/24/20 12/24/20 20:10 20:15 20:15 WBC 12.8 H RBC 5.10 Hgb 14.8 Hct 46.5 MCV 91.2 MCH 29.0 MCHC 31.8 L RDW Std Deviation 45.7 H RDW Coeff of Catherine 13.3 Plt Count 268 MPV 10.0 Immature Gran % (Auto) 0.400 Neut % (Auto) 70.9 H Lymph % (Auto) 19.2 Pitkin % (Auto) 7.9 Eos % (Auto) 1.1 Baso % (Auto) 0.5 Absolute Neuts (auto) 9.1 H Absolute Lymphs (auto) 2.46 Nucleated RBC % 0 Sodium 136 Potassium 3.7 Chloride 104 Carbon Dioxide 27.0 Anion Gap 5 BUN 13 Creatinine 0.76 Estim Creat Clear Calc 77.32 Est GFR (MDRD) Af Amer 103 Est GFR (MDRD) Non-Af 85 BUN/Creatinine Ratio 17.0 Glucose 109 H Calcium 8.8 Total Bilirubin 0.30 Direct Bilirubin 0.07 AST 10 L ALT 20 Alkaline Phosphatase 66 Total Protein 7.6 Albumin 3.4 Globulin 4.2 Lipase 101 Serum , Qual Urine Color Yellow Urine Clarity Clear Urine pH 5.0 Ur Specific [place] 1.020 Urine Protein Negative Urine Glucose (UA) Normal Urine Ketones 15 H Urine Occult Blood 250 H Urine Nitrite Negative Urine Bilirubin Negative Urine Urobilinogen 1 H Ur Leukocyte Esterase Negative Urine RBC 0-5 SEEN Urine WBC 0 SEEN Ur Squamous Epith Cells 0 SEEN Urine Bacteria RARE Urine Mucus RARE 12/24/20 20:15 WBC RBC Hgb Hct MCV MCH MCHC RDW Std Deviation RDW Coeff of Catherine Plt Count MPV Immature Gran % (Auto) Neut % (Auto) Lymph % (Auto) [place] % (Auto) Eos % (Auto) Baso % (Auto) Absolute Neuts (auto) Absolute Lymphs (auto) Nucleated RBC % Sodium Potassium Chloride Carbon Dioxide Anion Gap BUN Creatinine Estim Creat Clear Calc Est GFR (MDRD) Af Amer Est GFR (MDRD) Non-Af BUN/Creatinine Ratio Glucose Calcium Total Bilirubin Direct Bilirubin AST ALT Alkaline Phosphatase Total Protein Albumin Globulin Lipase Serum , Qual NEGATIVE Urine Color Urine Clarity Urine pH Ur Specific [place] Urine Protein Urine Glucose (UA) Urine Ketones Urine Occult Blood Urine Nitrite Urine Bilirubin Urine Urobilinogen Ur Leukocyte Esterase Urine RBC Urine WBC Ur Squamous Epith Cells Urine Bacteria Urine Mucus Discharge Plan Triage Chief Complaint: Abd Pain ED Provider: Geoff Peterson Dx/Rx/DC Orders Clinical Impression: Acute cholecystitis Prescriptions: No Action trazodone 50 mg Tablet 50 mg PO QHS RF: 0 sertraline 100 mg Tablet 100 mg PO DAILY RF: 0 celecoxib 100 mg Capsule 100 mg PO DAILY RF: 0 Primary Care Provider: Niraj Marquez Referrals: Niraj Marquez MD [Primary Care Provider] - Disposition Disposition: Acute Care Hospital [facility]
[2020-12-24] MEDS: Ondansetron 4 MG/2 ML Vial IV (21:35)
[2020-12-24] MEDS: morphine 8 MG/ML Syringe IV (21:35)
[2020-12-24] MEDS: Ketorolac 15 MG/ML Vial IV (21:35)
[2020-12-24 21:36] VITALS: BP 138/79; PULSE 75; RESP 16; TEMP 36.7; O2SAT 98
--- NOTE | 2020-12-24 22:27 | PCS.PANDOC ---
PANDEMIC DOCUMENTATION INITIATED: Date: 12/24/2020 Time: 2223
[2020-12-24 22:30] VITALS: BMI 44.2
[2020-12-24 22:42] VITALS: BMI 44.2
[2020-12-24 22:51] VITALS: BP 108/64; PULSE 57; RESP 16; TEMP 36.7; O2SAT 95
[2020-12-24] MEDS: Lactated Ringers 1,000 ML 125 ML IV (23:21)
[2020-12-24] MEDS: traZODone 50 MG Tablet PO (23:26)
[2020-12-24] MEDS: 0.9% Saline Lock 10 ML Syringe IV (23:28)
[2020-12-25] MEDS: Morphine 4 MG/ML Syringe IV (03:05)
[2020-12-25] MEDS: 0.9% Saline Lock 10 ML Syringe IV (03:05)
[2020-12-25 04:52] VITALS: BP 109/63; PULSE 63; RESP 18; TEMP 36.6; O2SAT 94
--- NOTE | 2020-12-25 05:00 | EKG12_ITS ---
Test Reason : PRE OP Blood Pressure : / mmHG Vent. Rate : 063 BPM Atrial Rate : 063 BPM P-R Int : 120 ms QRS Dur : 080 ms QT Int : 408 ms P-R-T Axes : 032 025 022 degrees QTc Int : 417 ms Normal sinus rhythm with sinus arrhythmia Normal ECG No previous ECGs available Confirmed by GIOVANY TORREZ, JOSE ([id number]), newspaper editor managing MEGAN ROCA ([id number]) on 12/27/2020 12:58:04 PM Referred By: NAHED Confirmed By:JOSE ADAIR MD
[2020-12-25 08:06] VITALS: BP 120/74; PULSE 66; RESP 16; TEMP 36.8; O2SAT 96
[2020-12-25] MEDS: Lactated Ringers 1,000 ML 125 ML IV (08:06)
--- NOTE | 2020-12-25 09:12 | PCM.HP.BLA ---
History and Physical Date of Admission: 12/25/20 Ashly Romero 1970 ? REFERRING PHYSICIAN: Gia Marquez ? CHIEF COMPLAINT: RUQ abdominal pain. ? HPI: Ashly is a 50 year old female with a complaint of right upper quadrant pain. The patient has had symptoms of right upper quadrant pain for few weeks. The symptoms have increased, over the past few weeks. The pain does radiate to the back and shoulder. Food does aggravate her symptoms. Alleviating factors include: none. ? The patient was seen by the emergency room physician few days ago. Ashly underwent an ultrasound and a CT scan. These tests demonstrated cholelithiasis. The patient is referred for evaluation and treatment. She was seen by Dr. Ramirez yesterday and offered surgery at [facility] on Sunday, however, patient presented to [facility] ED with severe pain. She is therefore admitted for intractable RUQ abdominal pain? PAST MEDICAL HISTORY: Anxiety ? Morbid obesity ? TOB use ? PAST SURGICAL HISTORY TOTAL KNEE REPLACEMENT left 2017 Right knee arthodesis [place] teeth extraction ? ? CURRENT MEDICATIONS: sertraline (ZOLOFT) 100 mg tablet Take 100 mg by mouth once daily. ? ? celecoxib (CELEBREX) 100 mg capsule Take 100 mg by mouth once daily. ? ? megestrol (MEGACE) 40 mg tablet Take 1 tablet by mouth once daily. 30 tablet 0 HYDROcodone-acetaminophen (NORCO) 5-325 mg per tablet Take 1 tablet by mouth every 6 hours as needed Naproxen SR (EC-NAPROSYN) 500 mg EC tablet Take 500 mg by mouth once daily. ? ? traZODone 50 mg tablet Take 50 mg by mouth daily at bedtime. ? ? ? ALLERGIES: Patient has no known allergies. ? PERSONAL HISTORY: ? Smoking status: Current Every Day Smoker ? ? Packs/day: 1.00 ? ? Years: 20.00 ? ? Pack years: 20.00 ? ? Types: Cigarettes ? Smokeless tobacco: Never Used Substance Use Topics ? Alcohol use: No ? Drug use: No ? FAMILY HISTORY: ? Alcohol/Drug Father ? ? Heart Father ? ? Coronary Artery Disease Father ? ? Hypertension Father ? ? Diabetes Mother ? ? Osteoporosis Mother ? ? Seizures Mother ? ? Breast Cancer Maternal Grandmother ? ? Osteoporosis Maternal Grandmother ? ? ? REVIEW OF SYSTEMS: General - denies anorexia, weight loss, denies fevers HEENT - denies trauma/infections Pulmonary - denies coughing up blood Cardio - denies chest pain, denies history of [place] Gastrointestinal - see HPI Genitourinary - denies blood in urine Endo - denies diabetes Musculoskeletal - has chronic knee pain Psych - TOB use, has known anxiety PHYSICAL EXAMINATION: ? General: The patient is 50 year old female, well nourished, well hydrated in no acute distress. The patient is oriented to time, place, and person. ? VITALS: Blood pressure 134/74, pulse 110, temperature 37.2 ?C (98.9 ?F), temperature source Temporal Artery, height 162.6 cm (5' 4), weight 119.4 kg (263 lb 3.2 oz), last menstrual period 11/05/2015, SpO2 97 %. Body mass index is 45.18 kg/m?. ? HEENT: Normal cephalic, atraumatic, pupils are equally round, sclera are clear and without icterus. ? Respiratory: Normal respiratory excursion and pattern. ? Cardiac: regular ? Abdominal exam: soft and obese, difficult to determine if any masses due to body habitus, tender in RUQ and epigastrium but no peritoneal signs. ? Extremities: no clubbing, cyanosis or edema. No adenopathy. ? ? IMPRESSION: intractable RUQ abdominal pain, known cholelithiasis ? PLAN: I have discussed with patient, will not proceed to surgery this weekend as this is not an emergency or urgent situation. Patient can consider proceeding with surgery with Dr. Ramirez on Sunday or I may have OR time on Sunday afternoon. She may elect to stay in the hospital for the above versus discharge home (and I will prescribe pain medications) Patient states that she will consider her options - she can let the nurse know and then I will put in the appropriate discharge orders, etc. ?
[2020-12-25] MEDS: HYDROcodone Bitartrate/Apap 5/325 Tablet PO (09:46)
[2020-12-25] MEDS: Sertraline 100 MG Tablet PO (09:47)
[2020-12-25] MEDS: Ketorolac 15 MG/ML Vial IV (12:17)
--- NOTE | 2020-12-25 13:13 | PCM.PN.BLA ---
Progress Note Patient wishes to be discharged to home. Office will contact patient on Sunday to discuss surgery dates.
--- NOTE | 2020-12-25 15:32 | CASEMGMT ---
RN CM NOTE: RN CM was getting ready to do initial RN CM assessment, but unable to do so, as pt has been discharged home. Jacques ORDONEZN RN CM
== END 2020-12-25 13:36 | disposition home or self-care (01) ==
LOC: ED 21:05 → MS2 12-25 17:03
PROVIDERS: Admitting Provider Surgery; Emergency Provider Emergency Medicine; PCP Family Medicine; Visit Provider Surgery
DX: K80.00 Calculus of gallbladder with acute cholecystitis without obstruction (principal); Z23 Encounter for immunization; F32.9 Major depressive disorder, single episode, unspecified; Z79.899 Other long term (current) drug therapy; F17.210 Nicotine dependence, cigarettes, uncomplicated; E66.01 Morbid (severe) obesity due to excess calories; Z68.42 Body mass index [BMI] 45.0-49.9, adult; F41.9 Anxiety disorder, unspecified
CPT/HCPCS: 80048; 80076; 81001; 83690; 84703; 85025; 93005; 96361; 96365; 96366; 96375; 96376; 99218; 99284; J7120; 90686; A4216; G0378; J2405

== ENCOUNTER → 2021-03-07 12:49 | Outpatient (CLI) | payer OTHER, BC, SELFPAY ==
--- NOTE | 2021-03-07 12:51 | VDLE_ITS ---
Reason For Study: BLE PAIN AND SWELLING RIGHT LEFT CFV is compressible, spontaneous, phasic, CFV is compressible, spontaneous, phasic, competent and demonstrates normal competent, and demonstrates normal augmentation. augmentation. FV is compressible, spontaneous, phasic, FV is compressible, spontaneous, phasic, competent and demonstrates normal competent and demonstrates normal augmentation. augmentation. POP V is compressible, spontaneous, phasic, POP V is compressible, spontaneous, phasic, competent and demonstrates normal competent and demonstrates normal augmentation. augmentation. T/P Trunk is compressible. T/P Trunk is compressible. PTV is compressible. PTV is compressible. RT PerV is compressible. LT PerV is compressible. SFJ is competent and measures 0.87 x 0.67 cm. SFJ is INCOMPETENT and measures 0.77 x 1.02 GSV proximal thigh measures 0.50 x 0.40 cm. cm. GSV at knee measures 0.26 x 0.24 cm. GSV proximal thigh measures 0.78 x 0.67 cm. GSV is competent throughout. GSV at knee measures 0.71 x 0.68 cm. SSV at junction is competent and measures GSV INCOMPETENT throughout for greater than 0.41 x 0.54 cm. 0.5 seconds. Procedure SSV proximal calf is competent and measures Exam performed in department. 0.37 x 0.29 cm. The exam was diagnostic. A preliminary report was called and/or faxed to Dr. Villarreal @ [phone]. VL/Venous Duplex US - Lexx Extrem Interpretation Summary Bilateral lower extremities with no evidence of DVT or SVT visualized. Left gre ater saphenous vein measuring 7.7, 7.8, 7.1 mm with reflux throughout. Ordering Physician: Nasim Villarreal Referring Physician: Niraj Marquez Performed By: Donna Beavers, FELIXCS, RVT
== END ==
PROVIDERS: PCP Family Medicine; Referring Provider Surgery Vascular Surgery; Visit Provider Surgery Vascular Surgery
DX: I83.893 Varicose veins of bilateral lower extremities with other complications (principal); M79.89 Other specified soft tissue disorders; M19.90 Unspecified osteoarthritis, unspecified site; M79.605 Pain in left leg; M79.604 Pain in right leg; F41.9 Anxiety disorder, unspecified; F17.200 Nicotine dependence, unspecified, uncomplicated
CPT/HCPCS: 93970

== ENCOUNTER 2021-03-31 10:33 | Day surgery (SDC) | payer OTHER, BC, SELFPAY ==
[2021-03-31] VITALS (7 sets, daily range): BP systolic 133–150; BP diastolic 85–93; PULSE 55–82; RESP 16–18; TEMP 36.1–36.4; O2SAT 95–98; BMI 44.7
--- NOTE | 2021-03-31 | EMB_PTH ---
PATIENT: BREN CROSS [place] [facility] [id number] AGE/SX: 51/F ROOM: RE03/31/[address]: Dr. Yissel Guevara MD : 1970 BED: DIS: 03/31/2021 SPEC #: [id number] RECD: 03/31/21 14:07 STATUS: PATIENCE BARAHONA #: [id number] COLLIN: 03/31/21 00:[address]: Yissel Guevara DEPT: SURGICAL PATHOLOGY RECD BY: Zackary Allen ENTERED: 03/31/21 14:07 SP TYPE: ENDOM BX/C ERIN DR: Dr. Niraj Marquez MD Tissues: Endometrium, NOS Procedures: Surgery Specimen Level IV HEADER OPERATION: Hysteroscopy, dilation and curettage, Mirena IUD insertion PRE-OP DIAGNOSIS: Stenotic cervix, abnormal uterine bleeding TISSUE SUBMITTED: Endometrial curettings MICROSCOPIC DIAGNOSIS Endometrial curettings: Strips of benign endometrial epithelium and superficial fragments of benign endometrial tissue. Fragments of ectocervical epithelium. SJ:yvonne 04/01/2021 MICROSCOPIC DESCRIPTION Slides are reviewed. GROSS DESCRIPTION Received in fixative is one container labeled with the patient's name and designated endometrial curettings. The specimen consists of multiple irregular fragments of mucoid, pink-bradford material that in aggregate measure 2 x 1 x <0.1 cm. The specimen is totally submitted in one cassette. / AM:yvonne 03/31/21 TC:4 CPT: 24462
[2021-03-31 11:07] LABS: Internal QC Validated? YES +Cl - CLEAR BKGD
[2021-03-31 11:10] LABS: Pregnancy, Urine Negative Negative
[2021-03-31] MEDS: Lactated Ringers 1,000 ML 150 ML IV (11:10)
[2021-03-31 11:14] LABS: Hematocrit 47.4 % (37-47); Hemoglobin 15.6 g/dL (12.0-15.0); Mean Corp Hgb Conc 32.9 g/dL (32-36); Mean Corpuscular Hgb 28.5 pg (27.0-32.0); Mean Corpuscular Volume 86.5 fL (81-99); Mean Platelet Vol. 9.6 fl (6.2-12.0); Platelet Count 304 K/mm3 (150-450); RBC Distribution Width CV 13.5 % (11.6-14.6); RBC Distribution Width SD 43.3 fl (35.1-43.9); Red Blood Count 5.48 M/mm3 (4.2-5.4); White Blood Count 9.9 K/mm3 (4.4-11.0)
[2021-03-31 11:26] LABS: Anion Gap 4 (5-15); BUN 18 mg/dL (7-18); Calcium,Total 9.7 mg/dL (8.5-10.1); Chloride 106 mmol/L (98-107); Creatinine, Serum 0.78 mg/dL (0.55-1.02); EST Glomerular Filtration Rate 83 mL/min (>60); Est Glom Filt Rate - Afr Amer 100 mL/min (>60); Estimated Creatinine Clearance 74.51 ml/min; Glucose 100 mg/dL (74-106); Potassium 4.3 mmol/L (3.5-5.1); Sodium Level 137 mmol/L (136-145)
[2021-03-31] MEDS: Vasopressin 20 UNITS/ML Vial (11:45)
--- NOTE | 2021-03-31 12:05 | PCM.DC ---
Discharge Instructions Diet Discharge Diet: No restrictions Activity Discharge Activity: May Drive (04/01/2021) and May Shower May resume sexual activity in: 1 week Lifting Restrictions: none Dressing / Incision Call your doctor if your incision/area has: Sudden Increased Bleeding and Foul Smelling Discharge Call your doctor if you observe: Fever of 101 or Higher and Using more than 1 pad per hour (for 2 hrs in a row) Follow Up Care Please Follow Up With: Yissel Guevara MD When: 2-4 weeks or as needed. Call [phone] to make an appointment or with any concerns. Test Results: Test results from this visit will be discussed in further detail at your follow-up appointment, if applicable. Discharge Plan Admission Primary Reason for Your Visit: D&C for abnormal uterine bleeding and Mirena insertion Attending Provider: Yissel Guevara Primary Care Provider: Niraj Marquez Discharge Orders/Prescriptions Prescriptions: New Mirena 20 mcg/24 hours (7 yrs) 52 mg intrauterine device See Rx Instructions .ROUTE .COMPLEX Qty: 1 RF: 0 Continued trazodone 50 mg Tablet 50 mg PO QHS RF: 0 sertraline 100 mg Tablet 100 mg PO QHS RF: 0 Referrals / Follow Up: Niraj Marquez MD [Primary Care Provider] - Disposition Disposition (needs filled in before D/C Order can be placed): Home, Self Care
--- NOTE | 2021-03-31 12:08 | PCM.OPRPT ---
Problems Associated Problem List Diagnoses (1) Abnormal uterine bleeding (AUB): Report of Operation Date of Procedure: 03/31/21 Pre-Operative Diagnosis: Abnormal uterine bleeding Post-Operative Diagnosis: same Surgery/Procedure Performed:: Hysteroscopy D&C with Mirena IUD insertion Description of Surgical Findings:: normal cervix, vagina, thin endometrium without discrete abnormalities. Both tubal ostia identified Surgeon: Yissel Guevara vehicle upholsterer: None Type of Anesthesia: MAC Anesthesiologist: Taty Parnell Special Medications: none Specimen's removed: endometrial curettings Drains: none Estimated Blood Loss (mL): 10 Fluids Replaced: 500 Description of Procedure: The patient was taken to the OR where she was prepped and draped in dorsal lithotomy position. The weighted speculum was placed in the vagina and the anterior lip of the cervix was grasped with a single-tooth tenaculum. A paracervical block was administered with 1% lidocaine with 1-100,000 epinephrine solution. The cervix was dilated serially with Hegar dilators. The 5mm hysteroscope was placed into the uterine cavity and the above findings were noted. Bilateral tubal ostia were identified. The hysteroscope was removed. A gentle sharp curettage was done of the uterine cavity. The Mirena IUD was then inserted in the usual sterile fashion. The strings were cut to 2 cm. The instruments were removed from the vagina. The specimen was handed off and sent to pathology. All sponge and needle counts were correct. Vaginal sweep was performed by me. The patient was awakened and taken to the recovery room in stable condition. Hysteroscopic fluid deficit was 100 cc of normal saline Findings: Endometrial cavity: Normal, no fibroids or polyps noted Cervix: Normal Vagina: Normal Grafts/Implants Used: none Procedure Start Time: 11:45 Procedure Stop Time: 11:59 Complications none Admit VTE Documentation VTE Present on Admission: No VTE Mechan Device Prophylaxis: SCD's VTE Pharm Prophylaxis ordered?: No Reason prophylaxis not ordered:: Procedure Not Indicated
[2021-03-31] MEDS: Acetaminophen 500 MG Tablet 1000 MG PO (13:00)
== END 2021-03-31 23:59 | disposition home or self-care (01) ==
LOC: SDC 10:35 → AC 10:43
PROVIDERS: Obstetrics & Gynecology; PCP Family Medicine; Referring Provider Obstetrics & Gynecology; Visit Provider Obstetrics & Gynecology
PROC: 0UDB8ZZ Extraction of Endometrium, Via Natural or Artificial Opening Endoscopic (ICD-10-PCS; CPT 58558; principal; 2021-03-31 12:00)
DX: N93.9 Abnormal uterine and vaginal bleeding, unspecified (principal); N88.2 Stricture and stenosis of cervix uteri; Z30.430 Encounter for insertion of intrauterine contraceptive device; M19.90 Unspecified osteoarthritis, unspecified site; F32.A Depression, unspecified; F41.9 Anxiety disorder, unspecified; F17.210 Nicotine dependence, cigarettes, uncomplicated; Z79.899 Other long term (current) drug therapy
CPT/HCPCS: 58558; 58300; 00952; 80048; 81025; 85027; 88305; J7120; J2405

== ENCOUNTER → 2022-03-29 | Outpatient (CLI) | payer BC, SELFPAY ==
--- NOTE | 2022-03-29 09:03 | BI_ITS ---
MAMMOGRAPHY - BILATERAL DIAGNOSTIC REASON FOR EXAM: Female, 52 years old. Palpable lump in the upper medial anterior aspect of the left breast. PERTINENT HISTORY: Aunt with breast cancer. TECHNIQUE: Digital bilateral breast madonna (3D mammographic acquisition) in the CC and MLO projections. 2-D mediolateral oblique (MLO) and craniocaudad (CC) views of both breasts were obtained. CAD: Full Field Digital Mammography with Computer Added Detection was performed. COMPARISON: Comparison is made with prior outside examination of 03/23/2021. FINDINGS: Breast Composition: The breasts are almost entirely fatty. There are no dominant masses or suspicious calcifications. Stable small benign-appearing bilateral axillary lymph nodes. No other significant abnormalities are identified. There has been no significant change since the prior study. BI/DIAG MAMM W/CAD, BILAT IMPRESSION: Stable bilateral diagnostic mammogram. With the patient''s history of a palpable lump in the upper medial aspect of the left breast, correlation with ultrasound is recommended. ASSESSMENT CATEGORY: BIRADS Category 0: Incomplete. Need additional imaging evaluation. A letter regarding these results will be sent to the patient by the facility within 30 days. Approximately 10% of breast cancers are not detected by mammography. A normal mammogram should not delay biopsy of a clinically suspicious abnormality. Electronically Signed: Landon Corbett MD at 10:40 EST ,
--- NOTE | 2022-03-29 09:03 | US_ITS ---
STUDY: ULTRASOUND BREAST - RIGHT REASON FOR EXAM: Female, 52 years old. Palpable lump left breast. TECHNIQUE: Axial and longitudinal images of the RIGHT breast were performed with a high resolution ultrasound transducer. # OF IMAGES: 27 COMPARISON: Comparison is made with prior mammogram done earlier in the day. FINDINGS: RIGHT Breast: The upper outer quadrant of the left breast was examined with ultrasound. At the 11 o''clock position of the breast, there is a 2.2 cm x 2.4 cm x 1 cm echogenic nodule at 8 cm from the nipple. A similar appearing echogenic nodule measuring 0.7 cm x 0.8 cm x 0.3 cm is seen at the 11 o''clock position of the breast at 9 cm from the nipple. A 6 mm x 6 mm x 4 mm echogenic nodule is also seen at the 11 o''clock position in the breast at 7 cm US/Breast Limited Unilateral IMPRESSION: 3 adjacent echogenic nodules are seen at the 11 o''clock position of the breast as described suggestive of lipomas. The largest measures 2.2 cm x 2.4 cm x 1 cm. ASSESSMENT CATEGORY: BIRADS Category 2: Benign. A letter regarding these results will be sent to the patient by the facility within 30 days. Electronically Signed: Landon Corbett MD at 10:53 EST ,
== END | disposition home or self-care (01) ==
PROVIDERS: PCP Internal Medicine; Referring Provider Internal Medicine; Visit Provider Internal Medicine
DX: N63.22 Unspecified lump in the left breast, upper inner quadrant (principal)
CPT/HCPCS: 76642; 77062; 77066; G0279

== ENCOUNTER 2023-05-21 05:18 | Day surgery (SDC) | payer BC, SELFPAY ==
[2023-05-21] VITALS (9 sets, daily range): BP systolic 85–130; BP diastolic 59–80; PULSE 58–94; RESP 16–18; TEMP 36.6–37.5; O2SAT 91–100; BMI 26.1
--- OUTSIDE RECORDS SUMMARY | 2023-05-21 05:21 | XMS RPT_ITS | CCD ---
Author Name Unknown Address [address] [place] [address] Organization [facility] Care Team Providers Care Pattern Generator Operator Name Role Phone FREDO MCKEON Unavailable Unavailable FREDO MCKEON Unavailable Unavailable TEA FLEMING Unavailable Unavailable Fast DO, Noreen A Unavailable Meron Beach Unavailable Sheldon SPENCER, Nubia Unavailable Unavailable Unavailable Unavailable eJanmarie TORREZ, Wild Johnson Unavailable [phone] SlaCally york LPN Unavailable Unavailable Unavailable Unavailable Fast DO, Noreen A Primary Care Provider FAST, NOREEN A Referring Unavailable FAST, NOREEN A Primary Care Unavailable MARYJANE WILD P Attending Unavailable FAST, NOREEN A Primary Care Unavailable MARYJANE, WILD P Referring Unavailable MARYJANE, WILD P Attending Unavailable FAST, NOREEN A Primary Care Unavailable MARYJANE, WILD P Referring Unavailable MARYJANE, WILD P Attending Unavailable Fast DO, Noreen A Unavailable Priyanka Escobar MA Unavailable Unavailable Fast DO, Noreen A Attending Unavailable Fast DO, Noreen A Consulting Unavailable Fast DO, Noreen A Referring Unavailable BRANDT TORREZ, KITA Newman Primary Care Physician DR BILL ADKINS DO Attending Unavailrebeka CARLTON MD, KITA Newman Primary Care Unavailable Liya Bell LPN Unavailable Unavailable Unavailable Unavailable Medications Current Medications Medication Drug Class(es) Dates Sig (Normalized) Sig (Original) LORazepam 0.5 mg oral tablet (1 source) Benzodiazepine Start: 09-17-2021 LORazepam 0.5 mg oral tablet 0 Refill(s), 121.1 Start Date: 09/17/21 Status: Ordered Completed/Discontinued Medications Medication Drug Class(es) Dates Sig (Normalized) Sig (Original) acetaminophen 325 mg / HYDROcodone bitartrate 5 mg oral tablet (3 sources) Opioid Agonist Start: 11-15-2022 take 1-2 tablets by mouth every six hours as needed HYDROcodone-aceta minophen 5-325 mg oral tablet 1-2 tablet q 6 hours prn for 0 days Quantity: 40 {Tablet} Refills: 0 Ordered: 15-Nov-2022 Fast DO, Noreen A Fast DO, Noreen A Start : 15-Nov-2022 Active Comments: fortyooars reviewed Problems Active Problems Problem Classification Problem Date Documented Da te Episodic/Chronic Abdominal pain (2 sources) Epigastric pain; Translations: [Epigastric pain] Onset: 05-08-2022 Episodic Acute bronchitis (20 sources) Acute bronchitis; Translations: [Acute bronchitis] 06-06-2022 Episodic Anxiety disorders (20 sources) Anxiety; Translations: [Anxiety] 02-01-2022 Chronic Past or Other Problems Problem Classification Problem Date Documented Da te Episodic/Chronic Unclassified (1 source) Z96.652, M17.12, T84.84XA Onset: 09-20-2016 Unclassified (2 sources) Unspecified Diagnosis 03-13-2022 NEGATED: Highlighted row has been ruled out!Unclassified (20 sources) Problem Onset: 02-01-2022 02-01-2022 Results Test Name Value Interpretation Reference Range Facil ity Vital Signs Date Time Vital Sign Value Performing Clinician Facility 11-15-2022 09:18-0400 Body height 163.19 cm Liya Bell LPN [facility]; [facility] Work Phone: 11-15-2022 09:18-0400 Body mass index (BMI) [Ratio] 30.49 kg/m2 Liya Bell LPN [facility]; [facility] Work Phone: 11-15-2022 09:18-0400 Body surface area Derived from formula 1.87 m2 Liya Bell LPN [facility]; [facility] Work Phone: 11-15-2022 09:18-0400 Body temperature 98.3 [degF] Liya Arabella AUTOMATIC FURNACE OPERATOR [facility]; [facility] Work Phone: 11-15-2022 09:18-0400 Body weight 81.19 kg Liya Bell AUTOMATIC FURNACE OPERATOR [facility]; [facility] Work Phone: 11-15-2022 09:18-0400 Diastolic blood pressure 80 mm[Hg] Liya Bell AUTOMATIC FURNACE OPERATOR [facility]; [facility] Work Phone: Encounters Encounter Date Encounter Type Care Provider Facility Start: 11-15-2022 End: 11-15-2022 Office outpatient visit 15 minutes Noreen Fast DO Work Phone: [facility] Start: 10-31-2022 Review Noreen Fast DO Work Phone: [facility] Start: 10-31-2022 End: 10-31-2022 Office outpatient visit 15 minutes Noreen Fast DO Work Phone: [facility] Start: 10-10-2022 End: 10-11-[address] BILL ADKINS DO Facility:[facility] Start: 10-10-2022 End: 10-10-[address] BILL ADKINS DO [facility] Start: 07-31-2022 ambulatory Noreen A Fast DO [facility] Start: 07-31-2022 End: 07-31-2022 Office outpatient visit 15 minutes Noreen Fast DO Work Phone: [facility] Start: 06-12-2022 End: 06-12-2022 Phone Encounter Noreen Fast DO Work Phone: [facility] Start: 06-08-2022 Telephone encounter Wild martinez MD Work Phone: General Surgery Procedures Date Procedure Procedure Detail Performing Clinician Start: 11-15-2022 End: 11-15-2022 Shoulder min 2 Views Procedure Note: See Note; NOTES: [facility] [address] [place] [address] Shoulder min 2 Views MR#: [id number] Acct: [id number] Name: ASHLY CROSS Rep #: [id number] : 1970 F 52 From: William Abad MD PCP: Dr. Noreen Donnelly DO Status: DEP AMB Study: Shoulder min 2 Views Date of Exam: 11/15/22 Exam# [id number] Ordering Dr: Noreen Donnelly DO STUDY: X-RAY - LEFT SHOULDER REASON FOR EXAM: Female, 52 years old. Atraumatic left shoulder pain. TECHNIQUE: 4 view(s) of the shoulder. COMPARISON: None. FINDINGS: Normal glenohumeral articulation. Moderate arthrosis of the AC joint. Normal acromion. Normal humeral head and visualized proximal humerus. Normal soft tissues. Normal visualized pulmonary apex. RAD/Shoulder min 2 Views IMPRESSION: Moderate arthrosis of the AC joint. No other abnormality. Electronically Signed: William Abad MD at 14:10 EDT , CC: Dr. Noreen Donnelly DO Vocational Counselor: Signed Noreen Donnelly DO Work Phone: Start: 06-06-2022 End: 06-06-2022 Chest PA and Lateral Procedure Note: See Note; NOTES: [facility] [address] [place] [address] Chest PA and Lateral MR#: [id number] Acct: [id number] Name: ASHLY CROSS Rep #: [id number] : 1970 F 52 From: Sadiq Vargas MD PCP: Dr. Noreen Donnelly DO Status: DEP AMB Study: Chest PA and Lateral Date of Exam: 06/06/22 Exam# [id number] Ordering Dr: Noreen Donnelly DO EXAM: XR CHEST, 2 VIEWS CLINICAL INDICATION: cough, STAT -- cough, STAT TECHNIQUE: Frontal and lateral views of the chest. This report was created using Soceani[employer] report generation technology. COMPARISON: None. FINDINGS: LUNGS AND PLEURAL SPACES: Normal. No consolidation or edema. No pneumothorax. No effusion. HEART: Normal heart size. MEDIASTINUM: No mediastinal or hilar mass. BONES/JOINTS: No acute abnormality. SOFT TISSUES: Normal. RAD/Chest PA and Lateral IMPRESSION: No acute cardiopulmonary disease. Electronically Signed: Sadiq Vargas MD at 14:33 EDT , CC: Dr. Noreen Donnelly DO Vocational Counselor: Signed Noreen Donnelly DO Work Phone: Start: 03-29-2022 End: 03-29-2022 Breast Limited Unilateral Procedure Note: See Note; NOTES: [facility] Imaging Services [address] [place] [address] Breast Limited Unilateral MR#: [id number] Acct: [id number] Name: ASHLY CROSS Rep #: [id number] : 1970 F 52 From: Landon borjas MD PCP: Dr. Noreen Donnelly DO Status: REG CLI Study: Breast Limited Unilateral Date of Exam: Exam# [id number] Ordering Dr: Noreen Donnelly DO STUDY: ULTRASOUND BREAST - RIGHT REASON FOR EXAM: Female, 52 years old. Palpable lump left breast. TECHNIQUE: Axial and longitudinal images of the RIGHT breast were performed with a high resolution ultrasound transducer. # OF IMAGES: 27 COMPARISON: Comparison is made with prior mammogram done earlier in the day. FINDINGS: RIGHT Breast: The upper outer quadrant of the left breast was examined with ultrasound. At the 11 o''clock position of the breast, there is a 2.2 cm x 2.4 cm x 1 cm echogenic nodule at 8 cm from the nipple. A similar appearing echogenic nodule measuring 0.7 cm x 0.8 cm x 0.3 cm is seen at the 11 o''clock position of the breast at 9 cm from the nipple. A 6 mm x 6 mm x 4 mm echogenic nodule is also seen at the 11 o''clock position in the breast at 7 cm US/Breast Limited Unilateral IMPRESSION: 3 adjacent echogenic nodules are seen at the 11 o''clock position of the breast as described suggestive of lipomas. The largest measures 2.2 cm x 2.4 cm x 1 cm. ASSESSMENT CATEGORY: BIRADS Category 2: Benign. A letter regarding these results will be sent to the patient by the facility within 30 days. Electronically Signed: Landon Corbett MD at 10:53 EST Reading Location ID and State: [address] [place] [address] , Service support , CC: Dr. Noreen Donnelly DO Vocational Counselor: Signed Noreen Donnelly DO Work Phone: Start: 03-29-2022 End: 03-29-2022 DIAG MAMM W/CAD, BILAT Procedure Note: See Note; NOTES: [facility] Imaging Services [address] [place] [address] DIAG MAMM W/CAD, BILAT MR#: [id number] Acct: [id number] Name: ASHLY CROSS Rep #: [id number] : 1970 F 52 From: Landon borjas MD PCP: Dr. Noreen Donnelly DO Status: [facility] Study: DIAG MAMM W/CAD, BILAT Date of Exam: 03/29/22 Exam# [id number] Ordering Dr: Noreen Donnelly DO MAMMOGRAPHY - BILATERAL DIAGNOSTIC REASON FOR EXAM: Female, 52 years old. Palpable lump in the upper medial anterior aspect of the left breast. PERTINENT HISTORY: Aunt with breast cancer. TECHNIQUE: Digital bilateral breast madonna (3D mammographic acquisition) in the CC and MLO projections. 2-D mediolateral oblique (MLO) and craniocaudad (CC) views of both breasts were obtained. CAD: Full Field Digital Mammography with Computer Added Detection was performed. COMPARISON: Comparison is made with prior outside examination of 03/23/2021. FINDINGS: Breast Composition: The breasts are almost entirely fatty. There are no dominant masses or suspicious calcifications. Stable small benign-appearing bilateral axillary lymph nodes. No other significant abnormalities are identified. There has been no significant change since the prior study. BI/DIAG MAMM W/CAD, BILAT IMPRESSION: Stable bilateral diagnostic mammogram. With the patient''s history of a palpable lump in the upper medial aspect of the left breast, correlation with ultrasound is recommended. ASSESSMENT CATEGORY: BIRADS Category 0: Incomplete. Need additional imaging evaluation. A letter regarding these results will be sent to the patient by the facility within 30 days. Approximately 10% of breast cancers are not detected by mammography. A normal mammogram should not delay biopsy of a clinically suspicious abnormality. Electronically Signed: Landon Corbett MD at 10:40 EST , CC: Dr. Noreen Donnelly DO Vocational Counselor: Signed Noreen Donnelly DO Work Phone: Start: 03-09-2021 Colonoscopy Wild Ramirez MD Work Phone: Start: 08-13-2014 Mammography Wild Ramirez MD Work Phone: Arthroscopy of knee DR GARIMA ADKINS DO Cholecystectomy Noreen A Fast DO Work Phone: Plan of Treatment Date Care Activity Detail Author Start: 03-09-2026 Colonoscopy COLONOSCOPY [facility] Start: 03-09-2026 COLORECTAL CANCER SCREENING COLORECTAL CANCER SCREENING [facility] Start: 02-07-2026 HPV TESTING HPV TESTING [facility] Start: 02-07-2026 PAP TESTING PAP TESTING [facility] Start: 11-15-2022 Procedure Education Eprescribed prescriptions (G8553) [facility]; [facility] Work Phone: Start: 10-31-2022 Procedure Education Eprescribed prescriptions (G8553) [facility]; [facility] Work Phone: Start: 10-31-2022 Urine albumin quantitative MICROALBUMIN: CREATININE RATIO (45972) AND (65020) [facility]; [facility] Work Phone: Start: 10-31-2022 Blood count complete auto&auto difrntl wbc CBC W/AUTO DIFF WBC (86543) [facility]; [facility] Work Phone: Start: 10-31-2022 Comprehensive metabolic panel METABOLIC PANEL, COMPREHENSIVE (98735) [facility]; [facility] Work Phone: Start: 07-31-2022 Procedure Education Eprescribed prescriptions (G8553) [facility]; [facility] Work Phone: Start: 06-06-2022 Procedure Education Eprescribed prescriptions (G8553) [facility]; [facility] Work Phone: Start: 04-21-2022 Procedure Education Eprescribed prescriptions (G8553) [facility]; [facility] Work Phone: Start: 04-21-2022 Comprehensive metabolic panel METABOLIC PANEL, COMPREHENSIVE (89874) [facility]; [facility] Work Phone: Start: 04-21-2022 Lipid panel LIPID PANEL (89283) [facility]; [facility] Work Phone: Start: 04-21-2022 C-reactive protein high sensitivity C-REACT PROT HIGH SENS(hsCRP) (49821) [facility]; [facility] Work Phone: Start: 04-21-2022 Hemoglobin glycosylated a1c HGB A1C (88968) [facility]; [facility] Work Phone: Start: 03-26-2022 DEPRESSION ASSESSMENT DEPRESSION ASSESSMENT [facility] Start: 03-13-2022 Procedure Education Eprescribed prescriptions (G8553) [facility]; [facility] Work Phone: Start: 02-14-2022 Procedure Education Eprescribed prescriptions (G8553) [facility]; [facility] Work Phone: Start: 02-01-2022 Procedure Education Eprescribed prescriptions (G8553) [facility]; [facility] Work Phone: Start: 02-01-2022 Cyanocobalamin vitamin b-12 VITAMIN B12 AND FOLATES (82928) [facility]; [facility] Work Phone: Start: 02-01-2022 Comprehensive metabolic panel METABOLIC PANEL, COMPREHENSIVE (53816) [facility]; [facility] Work Phone: Start: 02-01-2022 Blood count complete auto&auto difrntl wbc CBC with auto diff (17182) [facility]; [facility] Work Phone: Start: 02-01-2022 Hemoglobin glycosylated a1c HGB A1C (49745) [facility]; [facility] Work Phone: Start: 02-01-2022 Urine albumin quantitative MICROALBUMIN: CREATININE RATIO (43480) AND (54497) [facility]; [facility] Work Phone: Start: 02-01-2022 Assay of progesterone PROGESTERONE (67624) [facility]; [facility] Work Phone: Start: 02-01-2022 Assay of testosterone total TESTOSTERONE TOTAL (39135) [facility]; [facility] Work Phone: Start: 02-01-2022 Assay of testosterone free TESTOSTERONE FREE (89970) [facility]; [facility] Work Phone: Start: 02-01-2022 Assay of estradiol ESTRADIOL (93767) [facility]; [facility] Work Phone: Start: 02-01-2022 Gonadotropin follicle stimulating hormone FSH AND LH (77275) [facility]; [facility] Work Phone: Start: 11-24-2021 Influenza vaccination INFLUENZA (#1) [facility] Start: 2021 Influenza vaccination LUNG CANCER SCREENING [facility] Start: 2021 SHINGRIX VACCINE (1 of 2) SHINGRIX VACCINE (1 of 2) [facility] Start: 08-04-2020 COVID-19 VACCINE (4 - Booster for Pfizer series) COVID-19 VACCINE (4 - Booster for Pfizer series) [facility] Start: 05-16-2018 LIPID SCREEN LIPID SCREEN [facility] Start: 05-16-2016 DIABETES SCREEN DIABETES SCREEN [facility] Start: 01-14-2016 COLOGUARD (FIT-DNA) COLOGUARD (FIT-DNA) [facility] Start: 01-14-[address] COLONOGRAPHY [facility] Start: 01-14-2016 FECAL OCCULT BLOOD FECAL OCCULT BLOOD [facility] Start: 01-14-2016 SIGMOIDOSCOPY SIGMOIDOSCOPY [facility] Start: 08-14-2015 Mammography MAMMOGRAM [facility] Start: 1990 Urine microalbumin profile DTAP,TDAP,TD (1 - Tdap) [facility] Start: 1989 HEPATITIS C SCREENING HEPATITIS C SCREENING [facility] Start: 1989 HIV SCREENING HIV SCREENING [facility] Start: 1970 HEPATITIS B (1 of 3 - 3-dose series) HEPATITIS B (1 of 3 - 3-dose series) [facility] End: 05-16-2023 Esophageal motility study w/interp&rpt MANOMETRY ESOPHAGEAL Endoscopy Routine Esophageal dysphagia 1 Occurrences starting 05/16/2022 until 05/16/2023 [facility] Work Phone: Immunizations Immunization Date Immunization Notes Care Provider Fa cili 03-22-2021 SARS-CoV-2 mRNA (tozinameran) vaccine DR BILL ADKINS DO [facility] 12-25-2020 influenza virus vaccine, unspecified formulation DR BILL ADKINS DO [facility] 05-07-2020 SARS-CoV-2 mRNA (tozinameran) vaccine DR BILL ADKINS DO [facility] Payers Date Payer Category Payer Unknown [id number] 2020 Unknown 2020 Unknown [id number] 2013 Unknown [id number] 1970 Unknown [id number] 1970 Unknown [id number] Social History Date Type Detail Facility Start: 05-05-2022 Caffeine Use Caffeine Use Comprehens [facility]; [facility] Work Phone: Clinical Notes 12-29-2020 to 10-10-2022 Telephone Encounter - Barbie Crowe LPN - 06/08/2022 3:44 PM EDTTelephone Encounter - Christine Hamilton RN - 06/08/2022 11:28 AM Harsha Ramirez MD - 05/16/2022 9:05 AM EST Note Date & Type Note Facility 10-10-2022 Note Sinus rhythm Low voltage, precordial leads Electronic Signature: MARYANNE BAUTISTA MD 10/10/2022 21:16:17 [facility] 06-08-2022 Miscellaneous Notes Called [facility] and will they cancel appointment for tomorrow 06/09/22. Called and updated patient. Patient to be rescheduled with [facility] for the Esophageal Manometry Deborah from karyn at [facility] calling requesting orders for cookie swallow test that pt is scheduled to have tomorrow 06/09/22 at 1pm. This nurse does not see orders in system. Please call Deborah at [phone] and advise. Thank you. Christine Hamilton RN documented in this encounter [facility] 05-16-2022 Note HNO ID: [id number] Author: Wild Ramirez MD Service: ? Author Type: Physician Type: Progress Notes Filed: 05/16/2022 9:09 AM Note Text: Subjective: Patient is status post an EGD with biopsies of the duodenum stomach lower and mid esophagus. Duodenal biopsies showed no evidence of celiac sprue and were nondiagnostic. Stomach biopsy showed no evidence of H. pylori. Lower esophageal biopsies showed mild reactive squamous mucosa and midesophagus showed squamous mucosa with no diagnostic alterations and no evidence of eosinophilic esophagitis. Patient is still complaining of dysphagia symptoms with bubble like sensation and food getting stuck in the midesophagus. She is on 40 mg of a proton pump inhibitor. Symptoms are worse when she is lying down. Objective:Pulse 96, temperature 36.9 ?C (98.4 ?F), weight 104.4 kg (230 lb 3.2 oz), last menstrual period 12/24/2020, SpO2 99 %. Abdomen is soft nontender Assessment:Esophageal dysphagia (primary encounter diagnosis) Plan: I am going to obtain esophageal manometry studies. I will see her back once these are completed. [facility] 05-16-2022 History of Presen t illness Narrative Subjective: Patient is status post an EGD with biopsies of the duodenum stomach lower and mid esophagus. Duodenal biopsies showed no evidence of celiac sprue and were nondiagnostic. Stomach biopsy showed no evidence of H. pylori. Lower esophageal biopsies showed mild reactive squamous mucosa and midesophagus showed squamous mucosa with no diagnostic alterations and no evidence of eosinophilic esophagitis. Patient is still complaining of dysphagia symptoms with bubble like sensation and food getting stuck in the midesophagus. She is on 40 mg of a proton pump inhibitor. Symptoms are worse when she is lying down. Objective:Pulse 96, temperature 36.9 C (98.4 F), weight 104.4 kg (230 lb 3.2 oz), last menstrual period 12/24/2020, SpO2 99 %. Abdomen is soft nontender Assessment:Esophageal dysphagia (primary encounter diagnosis) Plan: I am going to obtain esophageal manometry studies. I will see her back once these are completed. documented in this encounter [facility] 05-05-2022 Note HNO ID: [id number] Author: Wild Ramirez MD Service: ? Author Type: Physician Type: Progress Notes Filed: 05/05/2022 8:18 AM Note Text: HISTORY AND PHYSICAL Ashly Cross 1970 REFERRING PHYSICIAN: Nroeen Donnelly DO CHIEF COMPLAINT: Consult (Left breast lump) HPI: The patient is a 52 year old female referred for endoscopy. Ashly notes no history of colon complaints. The patient notes the following upper complaints: Ashly notes abdominal pain. Discomfort in the epigastric area. She is recently started a new medication for her diabetes is noticed increasing dysphagia symptoms within the esophagus itself like food is getting stuck she has significant eructation.. . Ashly denies heartburn. Ashly notes dysphagia. Ashly denies a history of ulcers/ peptic ulcer disease. Ashly has not undergone prior endoscopy. The patient is being seen by me today at the request of Dr. Noreen Donnelly DO for my opinion and advice regarding Esophageal dysphagia (primary encounter diagnosis) Epigastric pain Lipoma, unspecified site. PAST MEDICAL HISTORY Diagnosis Date Anxiety Arthritis GERD (gastroesophageal reflux disease) Mass of left breast Neuropathy JACK on CPAP Prediabetes PAST SURGICAL HISTORY Procedure Laterality Date ABDOMINAL SURGERY HX ARTHRP KNE CONDYLEANDPLATU MEDIALANDLAT COMPARTMENTS Bilateral 2017 COLONOSCOPY FLX DX W/COLLJ SPEC WHEN PFRMD 03/09/2021 repeat in 5 years HYSTEROSCOPY BX ENDOMETRIUMAND/POLYPC W/WO DANDC 03/31/2021 Hysteroscopy DANDC w/ IUD insertion at [facility] for AUB JOINT REPLACEMENT HX LAPAROSCOPIC CHOLECYSTECTOMY 12/29/2020 Current Outpatient Medications Medication Sig escitalopram oxalate (LEXAPRO) 10 mg tablet venlafaxine ER (EFFEXOR XR) 150 mg 24 hr capsule venlafaxine ER (EFFEXOR XR) 75 mg 24 hr capsule omeprazole (PRILOSEC) 20 mg capsule tirzepatide (MOUNJARO) 10 mg/0.5 mL pen injector Inject subcutaneously. levonorgestrel (MIRENA) 20 mcg/24 hours (7 yrs) 52 mg IUD 1 Each by INTRAUTERINE route as directed. placed in OR peg 3350-Electrolytes (GOLYTELY) 236-22.74-6.74 -5.86 gram suspension Refer to printed prep instructions from your provider. traZODone 50 mg tablet Take 50 mg by mouth daily at bedtime. miSOPROStol (CYTOTEC) 200 mcg tablet Take two tablets PO night before procedure and two tablets morning of procedure (Patient not taking: Reported on 05/05/2022) sertraline (ZOLOFT) 100 mg tablet Take 100 mg by mouth once daily. (Patient not taking: Reported on 05/05/2022) celecoxib (CELEBREX) 100 mg capsule Take 100 mg by mouth once daily. (Patient not taking: Reported on 05/05/2022) No current facility-administered medications for this visit. ALLERGIES: Patient has no known allergies. PERSONAL HISTORY: Social History Tobacco Use Smoking status: Former Packs/day: 1.00 Years: 20.00 Pack years: 20.00 Types: Cigarettes Quit date: 01/2022 Years since quittin.2 Smokeless tobacco: Never Vaping Use Vaping Use: Never used Substance Use Topics Alcohol use: No Drug use: No FAMILY HISTORY: FAMILY HISTORY Problem Relation Age of Onset Alcohol/Drug Father Heart Father Coronary Artery Disease Father Hypertension Father Diabetes Mother Osteoporosis Mother Seizures Mother Breast Cancer Maternal Grandmother Osteoporosis Maternal Grandmother REVIEW OF SYMPTOMS: The review of systems data was entered by the nurse and reviewed by ct Nursing Notes: Babr West RN 05/05/2022 8:12 AM Signed REVIEW OF SYSTEMS: General: The patient denies fatigue, denies weight loss, denies weight gain, denies feeling hot, and denies feelings of cold. Eyes: The patient denies glaucoma, denies eye injury/surgery, wears glasses or contacts. Ear/Nose/Throat: The patient denies allergies, denies hayfever, denies ear infections, and denies bloody noses. Cardiovascular: The patient denies chest pain, denies heart disease, denies high blood pressure,denies cardiac stent, denies prior heart attack, denies irregular heart beat, denies high cholesterol, denies poor circulation, denies heart failure, other cardiac issues, denies claudication, denies cold feet, denies peripheral arterial stent. Respiratory: The patient denies tuberculosis, denies pneumonia, denies frequent cough, denies pulmonary embolism, denies shortness of breath, and denies coughing up blood. Gastrointestinal: The patient denies difficulty swallowing, NOTES acid reflux, denies ulcers, denies vomiting, denies jaundice/hepatitis, denies gallbladder problems, denies black or tarry stools, denies hemorrhoids, denies bleeding from rectum, denies diverticulitis, denies constipation, denies diarrhea, denies loss of stool control, and denies hernias. Kidney/Bladder: The patient NOTES kidney stones, denies urine infections, and denies bloody urine. Skin: The patient denies a history of skin cancer, denies bleeding/changing moles, and (more content not included)... [facility] 05-05-2022 Nurse Note REVIEW OF SYSTEMS: General: The patient denies fatigue, denies weight loss, denies weight gain, denies feeling hot, and denies feelings of cold. Eyes: The patient denies glaucoma, denies eye injury/surgery, wears glasses or contacts. Ear/Nose/Throat: The patient denies allergies, denies hayfever, denies ear infections, and denies bloody noses. Cardiovascular: The patient denies chest pain, denies heart disease, denies high blood pressure,denies cardiac stent, denies prior heart attack, denies irregular heart beat, denies high cholesterol, denies poor circulation, denies heart failure, other cardiac issues, denies claudication, denies cold feet, denies peripheral arterial stent. Respiratory: The patient denies tuberculosis, denies pneumonia, denies frequent cough, denies pulmonary embolism, denies shortness of breath, and denies coughing up blood. Gastrointestinal: The patient denies difficulty swallowing, NOTES acid reflux, denies ulcers, denies vomiting, denies jaundice/hepatitis, denies gallbladder problems, denies black or tarry stools, denies hemorrhoids, denies bleeding from rectum, denies diverticulitis, denies constipation, denies diarrhea, denies loss of stool control, and denies hernias. Kidney/Bladder: The patient NOTES kidney stones, denies urine infections, and denies bloody urine. Skin: The patient denies a history of skin cancer, denies bleeding/changing moles, and denies a history of skin rash. Neurologic: The patient denies a history of epilepsy/convulsions, denies headaches, denies head/spinal injuries, and denies stroke/TIA. Psychiatric: The patient denies psychiatric medications, denies depression, and denies voices, denies substance abuse. Endocrine: The patient denies thyroid disorders, denies diabetes, and denies hormonal problems. Hematologic: The patient denies a history of bruising, denies bleeding, and denies anemia, denies blood clots. Infections: The patient denies a history of measles and mumps, denies rheumatic fever, and denies sexually transmitted diseases. Musculoskeletal: The patient denies back pain/injury, denies back problems, denies sciatica, NOTES knee/foot trouble, NOTES arthritis, or denies gout. When was patient's last Mammogram screening? 03/2022 Last Colonoscopy: 2021 Barb West RN documented in this encounter [facility] 05-05-2022 History of Presen t illness Narrative HISTORY AND PHYSICAL Ashly Cross 1970 REFERRING PHYSICIAN: Noreen Donnelly DO CHIEF COMPLAINT: Consult (Left breast lump) HPI: The patient is a 52 year old female referred for endoscopy. Ashly notes no history of colon complaints. The patient notes the following upper complaints: Ashly notes abdominal pain. Discomfort in the epigastric area. She is recently started a new medication for her diabetes is noticed increasing dysphagia symptoms within the esophagus itself like food is getting stuck she has significant eructation.. . Ashly denies heartburn. Ashly notes dysphagia. Ashly denies a history of ulcers/ peptic ulcer disease. Ashly has not undergone prior endoscopy. The patient is being seen by me today at the request of Dr. Noreen A Fast, DO for my opinion and advice regarding Esophageal dysphagia (primary encounter diagnosis) Epigastric pain Lipoma, unspecified site. PAST MEDICAL HISTORY Diagnosis Date Anxiety Arthritis GERD (gastroesophageal reflux disease) Mass of left breast Neuropathy JACK on CPAP Prediabetes PAST SURGICAL HISTORY Procedure Laterality Date ABDOMINAL SURGERY HX ARTHRP KNE CONDYLE&PLATU MEDIAL&LAT COMPARTMENTS Bilateral 2017 COLONOSCOPY FLX DX W/COLLJ SPEC WHEN PFRMD 03/09/2021 repeat in 5 years HYSTEROSCOPY BX ENDOMETRIUM&/POLYPC W/WO D&C 03/31/2021 Hysteroscopy D&C w/ IUD insertion at [facility] for AUB JOINT REPLACEMENT HX LAPAROSCOPIC CHOLECYSTECTOMY 12/29/2020 Current Outpatient Medications Medication Sig escitalopram oxalate (LEXAPRO) 10 mg tablet venlafaxine ER (EFFEXOR XR) 150 mg 24 hr capsule venlafaxine ER (EFFEXOR XR) 75 mg 24 hr capsule omeprazole (PRILOSEC) 20 mg capsule tirzepatide (MOUNJARO) 10 mg/0.5 mL pen injector Inject subcutaneously. levonorgestrel (MIRENA) 20 mcg/24 hours (7 yrs) 52 mg IUD 1 Each by INTRAUTERINE route as directed. placed in OR peg 3350-Electrolytes (GOLYTELY) 236-22.74-6.74 -5.86 gram suspension Refer to printed prep instructions from your provider. traZODone 50 mg tablet Take 50 mg by mouth daily at bedtime. miSOPROStol (CYTOTEC) 200 mcg tablet Take two tablets PO night before procedure and two tablets morning of procedure (Patient not taking: Reported on 05/05/2022) sertraline (ZOLOFT) 100 mg tablet Take 100 mg by mouth once daily. (Patient not taking: Reported on 05/05/2022) celecoxib (CELEBREX) 100 mg capsule Take 100 mg by mouth once daily. (Patient not taking: Reported on 05/05/2022) No current facility-administered medications for this visit. ALLERGIES: Patient has no known allergies. PERSONAL HISTORY: Social History Tobacco Use Smoking status: Former Packs/day: 1.00 Years: 20.00 Pack years: 20.00 Types: Cigarettes Quit date: 01/2022 Years since quittin.2 Smokeless tobacco: Never Vaping Use Vaping Use: Never used Substance Use Topics Alcohol use: No Drug use: No FAMILY HISTORY: FAMILY HISTORY Problem Relation Age of Onset Alcohol/Drug Father Heart Father Coronary Artery Disease Father Hypertension Father Diabetes Mother Osteoporosis Mother Seizures Mother Breast Cancer Maternal Grandmother Osteoporosis Maternal Grandmother REVIEW OF SYMPTOMS: The review of systems data was entered by the nurse and reviewed by me Nursing Notes: Barb West RN 05/05/2022 8:12 AM Signed REVIEW OF SYSTEMS: General: The patient denies fatigue, denies weight loss, denies weight gain, denies feeling hot, and denies feelings of cold. Eyes: The patient denies glaucoma, denies eye injury/surgery, wears glasses or contacts. Ear/Nose/Throat: The patient denies allergies, denies hayfever, denies ear infections, and denies bloody noses. Cardiovascular: The patient denies chest pain, denies heart disease, denies high blood pressure,denies cardiac stent, denies prior heart attack, denies irregular heart beat, denies high cholesterol, denies poor circulation, denies heart failure, other cardiac issues, denies claudication, denies cold feet, denies peripheral arterial stent. Respiratory: The patient denies tuberculosis, denies pneumonia, denies frequent cough, denies pulmonary embolism, denies shortness of breath, and denies coughing up blood. Gastrointestinal: The patient denies difficulty swallowing, NOTES acid reflux, denies ulcers, denies vomiting, denies jaundice/hepatitis, denies gallbladder problems, denies black or tarry stools, denies hemorrhoids, denies bleeding from rectum, denies diverticulitis, denies constipation, denies diarrhea, denies loss of stool control, and denies hernias. Kidney/Bladder: The patient NOTES kidney stones, denies urine infections, and denies bloody urine. Skin: The patient denies a history of skin cancer, denies bleeding/changing moles, and denies a history of skin rash. Neurologic: The patient denies a history of epilepsy/convulsions, denies headaches, denies head/spinal injuries, and denies stroke/TIA. Psychiatric: The patient denies psychiatric medications, denies depression, and denies voices, denies substance abuse. Endocrine: The patient denies thyroid disorders, denies diabetes, and denies hormonal problems. Hematologic: The patient denies a history of bruising, denies bleeding, and denies anemia, denies blood clots. Infections: The patient denies a history of measles and mumps, denies rheumatic fever, and denies sexually transmitted diseases. Musculoskeletal: The patient denies back pain/injury, denies back problems, denies sciatica, NOTES knee/foot trouble, NOTES arthritis, or denies gout. When was patient's last Mammogram screening? 03/2022 Last Colonoscopy: 2021 Barb West RN PHYSICAL EXAMINATION: General: The patient is 52 year old female, well nourished, well hydrated in no acute distress. The patient is oriented to time, place, and person. VITALS: Blood pressure 128/82, pulse 103, temperature 37.3 C (99.1 F), height 162.6 cm (5' 4 ), weight 106.3 kg (234 lb 6.4 oz), last menstrual period 12/24/2020, SpO2 99 %. Body mass index is 40.23 kg/m . HEENT: Normal cephalic, ataumatic, pupils are equally round, sclera are anicteric, mucous membranes are moist, oropharynx is clear. Neck has no masses, asymmetry or lymphadenopathy. Thyroid is unremarkable. Respiratory: Clear to auscultation and percussion. Normal respiratory excursion and pattern. Cardiac: Examination is regular rate and rhythm. Abdominal exam: Soft, nontender, with no palpable masses. No hepatosplenomegaly. No palpable hernias. Rectal exam: exam deferred Extremities: no clubbing, cyanosis or edema. No adenopathy. Other: Bilateral breast exam reveals no hard nodules. You can feel the lipomas very superficially on the left breast they are soft easily pliable and consistent with a benign exam. Axillary exams bilaterally are negative. Supraclavicular exam bilaterally is negative. LABORATORY VALUES: As Noted RADIOLOGIC STUDIES: Breast ultrasound completed at [facility] confirms 3 small lipomas within the left breast and was given a BI-RADS Category 2 there was no shadowing. Assessment IMPRESSION: Esophageal dysphagia (primary encounter diagnosis) Epigastric pain Lipoma, unspecified site PLAN: I plan to perform upper endoscopy. We discussed the risks and benefits of the planned endoscopy. I have informed the patient that complications can occur including failure to complete the endoscopy and perforation. The patient had the opportunity to ask questions concerning the planned endoscopy. My staff has also explained the procedure to the patient in understandable terms and has given the patient printed material concerning the procedure. The patient freely consents to surgery. There is nothing that we need to do for the breast at this time. I have instructed her to continue to do her self breast exams if the areas become tender or they change in size or firmness in texture then we should act upon them. Diagnoses: (R13.19) Esophageal dysphagia (primary encounter diagnosis) (R10.13) Epigastric pain (D17.9) Lipoma, unspecified site A letter was sent to Dr. Noreen Donnelly DO indicating the above finding for this patient. Return to Clinic: The patient is instructed to follow-up with me 1 week post operatively. Wild Ramirez III, MD documented in this encounter [facility] 12-29-2020 Note HNO ID: [id number] Author: Nataliia Buckley APRN.CRUSHER SCREEN REPAIRER Service: Anesthesiology Author Type: Nurse Offal Worker Type: Anesthesia Procedure Notes Filed: 12/29/2020 2:58 PM Note Text: ANESTHESIOLOGY PROCEDURE NOTE Airway General Information Procedure Start Time/Medication Administration: 12/29/2020 2:44 PM Patient location during procedure: OR Timeout Performed Pre-procedure: timeout performed Consent Obtained: Yes Patient identity confirmed: patient Staffing CRUSHER SCREEN REPAIRER: Nataliia Buckley APRN.CRUSHER SCREEN REPAIRER Indications and Patient Condition Preoxygenated: yes Patient position: sniffing Difficult Mask: No Indications for airway management: anesthesia anesthesia circuit Method: asleep Final Airway Details Final airway type: endotracheal airway Final Endotracheal Airway: ETT Cuffed: yes Successful intubation technique: direct laryngoscopy Endotracheal tube insertion site: oral Blade: Sam Blade size: #4 ETT size (mm): 7.0 Measured from: gums Measurement (cm): 21 Placement verified by: chest auscultation and capnometry Cormack-Lehane Classification: grade I - full view of glottis Number of attempts at approach: 1 Airway not difficult SIGNATURE: Nataliia Buckley APRN.CRUSHER SCREEN REPAIRER PATIENT NAME: Ashly Cross DATE: December 29, 2020 TIME: 2:57 PM CSN: [id number] [facility] documented as of this encounter (statuses as of 05/05/2022) [facility]10-06-2021 History of Past illness Narrative* Problem Noted Date Resolved Date Calculus of gallbladder with acute on chronic cholecystitis without obstruction 12/29/2020 12/29/2020 documented as of this encounter (statuses as of 05/16/2022) [facility] History of Past illness Narrative* Problem Noted Date Resolved Date Calculus of gallbladder with acute on chronic cholecystitis without obstruction 12/29/2020 12/29/2020 documented as of this encounter (statuses as of 06/13/2022) [facility] No data available for this section [facility] Evaluation note* Diagnosis Esophageal dysphagia- Primary Dysphagia, pharyngoesophageal phase Epigastric pain Abdominal pain, epigastric Lipoma, unspecified site [facility] Diagnosis Esophageal dysphagia- Primary Dysphagia, pharyngoesophageal phase [facility] No data available for this section [facility] Instructions* Name Dates Details Patient Instructions Indication:Menopausal symptoms Start:01-Feb-2022 Instruction Type:Provider Instructions for Treatment How to Access Health Informa tion Online using Patient Portal and [employer] Apps Indication:Menopausal symptoms Start:01-Feb-2022 Instruction Type:Patient [email or web address] Internal Medicine; [facility] Work Phone: Instructions* Name Dates Details Patient Instructions Indication:Menopausal symptoms Start:01-Feb-2022 Instruction Type:Provider Instructions for Treatment How to Access Health Informa tion Online using Patient Portal and [employer] Apps Indication:Menopausal symptoms Start:01-Feb-2022 Instruction Type:Patient Edu [facility] Internal Medicine; [facility] Work Phone: Instructions* Name Dates Details Patient Instructions Indication:Prediabetes Start:14-Feb-2022 Instruction Type:Provider Instructions for Treatment Patient Instructions Indication:Menopausal symptoms Start:01-Feb-2022 Instruction Type:Provider Instructions for Treatment How to Access Health Informa tion Online using Patient Portal and [employer] Apps Indication:Menopausal symptoms Start:01-Feb-2022 Instruction Type:Patient Education [facility]; [facility] Work Phone: instructions* Name Dates Details Patient Instructions Indication:Unspecified Diagnosis Start:13-Mar-2022 Instruction Type:Provider Instructions for Treatment How to Access Health Informa tion Online using Patient Portal and [employer] Apps Indication:Unspecified Diagnosis Start:13-Mar-2022 Instruction Type:Patient Education Patient Instructions Indication:Prediabetes Start:14-Feb-2022 Instruction Type:Provider Instructions for Treatment Patient Instructions Indication:Menopausal symptoms Start:01-Feb-2022 Instruction Type:Provider Instructions for Treatment How to Access Health Informa tion Online using Patient Portal and [employer] Apps Indication:Menopausal symptoms Start:01-Feb-2022 Instruction Type:Patient Education [facility]; [facility] Work Phone: instructions* Name Dates Details Patient Instructions Indication:Left breast mass Start:13-Mar-2022 Instruction Type:Provider Instructions for Treatment How to Access Health Informa tion Online using Patient Portal and [employer] Apps Indication:Left breast mass Start:13-Mar-2022 Instruction Type:Patient Education Patient Instructions Indication:Prediabetes Start:14-Feb-2022 Instruction Type:Provider Instructions for Treatment Patient Instructions Indication:Menopausal symptoms Start:01-Feb-2022 Instruction Type:Provider Instructions for Treatment How to Access Health Informa tion Online using Patient Portal and [employer] Apps Indication:Menopausal symptoms Start:01-Feb-2022 Instruction Type:Patient Education [facility]; [facility] Work Phone: instructions* Name Dates Details Patient Instructions Indication:Left breast mass Start:13-Mar-2022 Instruction Type:Provider Instructions for Treatment How to Access Health Informa tion Online using Patient Portal and [employer] Apps Indication:Left breast mass Start:13-Mar-2022 Instruction Type:Patient Education Patient Instructions Indication:Prediabetes Start:14-Feb-2022 Instruction Type:Provider Instructions for Treatment Patient Instructions Indication:Menopausal symptoms Start:01-Feb-2022 Instruction Type:Provider Instructions for Treatment How to Access Health Informa tion Online using Patient Portal and [employer] Indication:Menopausal symptoms Start:01-Feb-2022 Instruction Type:Patient Education [facility]; [facility] Work Phone: instructions* Name Dates Details Patient Instructions Indication:Left breast mass Start:13-Mar-2022 Instruction Type:Provider Instructions for Treatment How to Access Health Informa tion Online using Patient Portal and [employer] Apps Indication:Left breast mass Start:13-Mar-2022 Instruction Type:Patient Education Patient Instructions Indication:Prediabetes Start:14-Feb-2022 Instruction Type:Provider Instructions for Treatment Patient Instructions Indication:Menopausal symptoms Start:01-Feb-2022 Instruction Type:Provider Instructions for Treatment How to Access Health Informa tion Online using Patient Portal and [employer] Apps Indication:Menopausal symptoms Start:01-Feb-2022 Instruction Type:Patient Education [facility]; [facility] Work Phone: instructions* Name Dates Details Patient Instructions Indication:Left breast mass Start:13-Mar-2022 Instruction Type:Provider Instructions for Treatment How to Access Health Informa tion Online using Patient Portal and [employer] Apps Indication:Left breast mass Start:13-Mar-2022 Instruction Type:Patient Education Patient Instructions Indication:Prediabetes Start:14-Feb-2022 Instruction Type:Provider Instructions for Treatment Patient Instructions Indication:Menopausal symptoms Start:01-Feb-2022 Instruction Type:Provider Instructions for Treatment How to Access Health Informa tion Online using Patient Portal and [employer] Apps Indication:Menopausal symptoms Start:01-Feb-2022 Instruction Type:Patient Education [facility]; [facility] Work Phone: instructions* Name Dates Details Patient Instructions Indication:Former smoker Start:21-Apr-2022 Instruction Type:Provider Instructions for Treatment How to Access Health Informa tion Online using Patient Portal and [employer] Apps Indication:Former smoker Start:21-Apr-2022 Instruction Type:Patient Education Patient Instructions Indication:Left breast mass Start:13-Mar-2022 Instruction Type:Provider Instructions for Treatment How to Access Health Informa tion Online using Patient Portal and [employer] Apps Indication:Left breast mass Start:13-Mar-2022 Instruction Type:Patient Education Patient Instructions Indication:Prediabetes Start:14-Feb-2022 Instruction Type:Provider Instructions for Treatment Patient Instructions Indication:Menopausal symptoms Start:01-Feb-2022 Instruction Type:Provider Instructions for Treatment How to Access Health Informa tion Online using Patient Portal and [employer] Indication:Menopausal symptoms Start:01-Feb-2022 Instruction Type:Patient Education [facility]; [facility] Work Phone: instructions* Name Dates Details Patient Instructions Indication:Former smoker Start:21-Apr-2022 Instruction Type:Provider Instructions for Treatment How to Access Health Informa tion Online using Patient Portal and [employer] Indication:Former smoker Start:21-Apr-2022 Instruction Type:Patient Education Patient Instructions Indication:Left breast mass Start:13-Mar-2022 Instruction Type:Provider Instructions for Treatment How to Access Health Informa tion Online using Patient Portal and [employer] Indication:Left breast mass Start:13-Mar-2022 Instruction Type:Patient Education Patient Instructions Indication:Prediabetes Start:14-Feb-2022 Instruction Type:Provider Instructions for Treatment Patient Instructions Indication:Menopausal symptoms Start:01-Feb-2022 Instruction Type:Provider Instructions for Treatment How to Access Health Informa tion Online using Patient Portal and [employer] Indication:Menopausal symptoms Start:01-Feb-2022 Instruction Type:Patient Education [facility]; [facility] Work Phone: instructions* Name Dates Details Patient Instructions Indication:Former smoker Start:21-Apr-2022 Instruction Type:Provider Instructions for Treatment How to Access Health Informa tion Online using Patient Portal and [employer] Indication:Former smoker Start:21-Apr-2022 Instruction Type:Patient Education Patient Instructions Indication:Left breast mass Start:13-Mar-2022 Instruction Type:Provider Instructions for Treatment How to Access Health Informa tion Online using Patient Portal and [employer] Indication:Left breast mass Start:13-Mar-2022 Instruction Type:Patient Education Patient Instructions Indication:Prediabetes Start:14-Feb-2022 Instruction Type:Provider Instructions for Treatment Patient Instructions Indication:Menopausal symptoms Start:01-Feb-2022 Instruction Type:Provider Instructions for Treatment How to Access Health Informa tion Online using Patient Portal and [employer] Indication:Menopausal symptoms Start:01-Feb-2022 Instruction Type:Patient Education [facility]; [facility] Work Phone: instructions* Name Dates Details Patient Instructions Indication:Acute bronchitis Start:06-Jun-2022 Instruction Type:Provider Instructions for Treatment How to Access Health Informa tion Online using Patient Portal and [employer] Apps Indication:Acute bronchitis Start:06-Jun-2022 Instruction Type:Patient Education Patient Instructions Indication:Former smoker Start:21-Apr-2022 Instruction Type:Provider Instructions for Treatment How to Access Health Informa tion Online using Patient Portal and [employer] Apps Indication:Former smoker Start:21-Apr-2022 Instruction Type:Patient Education Patient Instructions Indication:Left breast mass Start:13-Mar-2022 Instruction Type:Provider Instructions for Treatment How to Access Health Informa tion Online using Patient Portal and [employer] Apps Indication:Left breast mass Start:13-Mar-2022 Instruction Type:Patient Education Patient Instructions Indication:Prediabetes Start:14-Feb-2022 Instruction Type:Provider Instructions for Treatment Patient Instructions Indication:Menopausal symptoms Start:01-Feb-2022 Instruction Type:Provider Instructions for Treatment How to Access Health Informa tion Online using Patient Portal and [employer] Apps Indication:Menopausal symptoms Start:01-Feb-2022 Instruction Type:Patient Education [facility]; [facility] Work Phone: Instructions* Name Dates Details Patient Instructions Indication:Acute bronchitis Start:06-Jun-2022 Instruction Type:Provider Instructions for Treatment How to Access Health Informa tion Online using Patient Portal and [employer] Apps Indication:Acute bronchitis Start:06-Jun-2022 Instruction Type:Patient Education Patient Instructions Indication:Former smoker Start:21-Apr-2022 Instruction Type:Provider Instructions for Treatment How to Access Health Informa tion Online using Patient Portal and [employer] Apps Indication:Former smoker Start:21-Apr-2022 Instruction Type:Patient Education Patient Instructions Indication:Left breast mass Start:13-Mar-2022 Instruction Type:Provider Instructions for Treatment How to Access Health Informa tion Online using Patient Portal and [employer] Apps Indication:Left breast mass Start:13-Mar-2022 Instruction Type:Patient Education Patient Instructions Indication:Prediabetes Start:14-Feb-2022 Instruction Type:Provider Instructions for Treatment Patient Instructions Indication:Menopausal symptoms Start:01-Feb-2022 Instruction Type:Provider Instructions for Treatment How to Access Health Informa tion Online using Patient Portal and [employer] Apps Indication:Menopausal symptoms Start:01-Feb-2022 Instruction Type:Patient Education [facility]; [facility] Work Phone: instructions* Name Dates Details Patient Instructions Indication:Former smoker Start:31-Jul-2022 Instruction Type:Provider Instructions for Treatment How to Access Health Informa tion Online using Patient Portal and [employer] Apps Indication:Former smoker Start:31-Jul-2022 Instruction Type:Patient Education Patient Instructions Indication:Acute bronchitis Start:06-Jun-2022 Instruction Type:Provider Instructions for Treatment How to Access Health Informa tion Online using Patient Portal and [employer] Apps Indication:Acute bronchitis Start:06-Jun-2022 Instruction Type:Patient Education Patient Instructions Indication:Former smoker Start:21-Apr-2022 Instruction Type:Provider Instructions for Treatment How to Access Health Informa tion Online using Patient Portal and [employer] Apps Indication:Former smoker Start:21-Apr-2022 Instruction Type:Patient Education Patient Instructions Indication:Left breast mass Start:13-Mar-2022 Instruction Type:Provider Instructions for Treatment How to Access Health Informa tion Online using Patient Portal and [employer] Apps Indication:Left breast mass Start:13-Mar-2022 Instruction Type:Patient Education Patient Instructions Start:14-Feb-2022 Instruction Type:Provider Instructions for Treatment Patient Instructions Indication:Menopausal symptoms Start:01-Feb-2022 Instruction Type:Provider Instructions for Treatment How to Access Health Informa tion Online using Patient Portal and [employer] Apps Indication:Menopausal symptoms Start:01-Feb-2022 Instruction Type:Patient Education [facility]; [facility] Work Phone: instructions* Name Dates Details Patient Instructions Indication:Former smoker Start:31-Jul-2022 Instruction Type:Provider Instructions for Treatment How to Access Health Informa tion Online using Patient Portal and [employer] Apps Indication:Former smoker Start:31-Jul-2022 Instruction Type:Patient Education Patient Instructions Indication:Acute bronchitis Start:06-Jun-2022 Instruction Type:Provider Instructions for Treatment How to Access Health Informa tion Online using Patient Portal and [employer] Apps Indication:Acute bronchitis Start:06-Jun-2022 Instruction Type:Patient Education Patient Instructions Indication:Former smoker Start:21-Apr-2022 Instruction Type:Provider Instructions for Treatment How to Access Health Informa tion Online using Patient Portal and [employer] Apps Indication:Former smoker Start:21-Apr-2022 Instruction Type:Patient Education Patient Instructions Indication:Left breast mass Start:13-Mar-2022 Instruction Type:Provider Instructions for Treatment How to Access Health Informa tion Online using Patient Portal and [employer] Apps Indication:Left breast mass Start:13-Mar-2022 Instruction Type:Patient Education Patient Instructions Start:14-Feb-2022 Instruction Type:Provider Instructions for Treatment Patient Instructions Indication:Menopausal symptoms Start:01-Feb-2022 Instruction Type:Provider Instructions for Treatment How to Access Health Informa tion Online using Patient Portal and [employer] Apps Indication:Menopausal symptoms Start:01-Feb-2022 Instruction Type:Patient Education [facility]; [facility] Work Phone: Instructions* Name Dates Details Patient Instructions Indication:Elevated hemoglobin A1c Start:31-Oct-2022 Instruction Type:Provider Instructions for Treatment How to Access Health Informa tion Online using Patient Portal and [employer] Apps Indication:Elevated hemoglobin A1c Start:31-Oct-2022 Instruction Type:Patient Education Patient Instructions Indication:Former smoker Start:31-Jul-2022 Instruction Type:Provider Instructions for Treatment How to Access Health Informa tion Online using Patient Portal and [employer] Apps Indication:Former smoker Start:31-Jul-2022 Instruction Type:Patient Education Patient Instructions Indication:Acute bronchitis Start:06-Jun-2022 Instruction Type:Provider Instructions for Treatment How to Access Health Informa tion Online using Patient Portal and [employer] Apps Indication:Acute bronchitis Start:06-Jun-2022 Instruction Type:Patient Education Patient Instructions Indication:Former smoker Start:21-Apr-2022 Instruction Type:Provider Instructions for Treatment How to Access Health Informa tion Online using Patient Portal and [employer] Apps Indication:Former smoker Start:21-Apr-2022 Instruction Type:Patient Education Patient Instructions Indication:Left breast mass Start:13-Mar-2022 Instruction Type:Provider Instructions for Treatment How to Access Health Informa tion Online using Patient Portal and [employer] Apps Indication:Left breast mass Start:13-Mar-2022 Instruction Type:Patient Education Patient Instructions Start:14-Feb-2022 Instruction Type:Provider Instructions for Treatment Patient Instructions Indication:Menopausal symptoms Start:01-Feb-2022 Instruction Type:Provider Instructions for Treatment How to Access Health Informa tion Online using Patient Portal and [employer] Apps Indication:Menopausal symptoms Start:01-Feb-2022 Instruction Type:Patient Education [facility]; [facility] Work Phone: Instructions* Name Dates Details Patient Instructions Indication:Elevated hemoglobin A1c Start:31-Oct-2022 Instruction Type:Provider Instructions for Treatment How to Access Health Informa tion Online using Patient Portal and [employer] Apps Indication:Elevated hemoglobin A1c Start:31-Oct-2022 Instruction Type:Patient Education Patient Instructions Indication:Former smoker Start:31-Jul-2022 Instruction Type:Provider Instructions for Treatment How to Access Health Informa tion Online using Patient Portal and [employer] Apps Indication:Former smoker Start:31-Jul-2022 Instruction Type:Patient Education Patient Instructions Indication:Acute bronchitis Start:06-Jun-2022 Instruction Type:Provider Instructions for Treatment How to Access Health Informa tion Online using Patient Portal and [employer] Apps Indication:Acute bronchitis Start:06-Jun-2022 Instruction Type:Patient Education Patient Instructions Indication:Former smoker Start:21-Apr-2022 Instruction Type:Provider Instructions for Treatment How to Access Health Informa tion Online using Patient Portal and [employer] Apps Indication:Former smoker Start:21-Apr-2022 Instruction Type:Patient Education Patient Instructions Indication:Left breast mass Start:13-Mar-2022 Instruction Type:Provider Instructions for Treatment How to Access Health Informa tion Online using Patient Portal and [employer] Apps Indication:Left breast mass Start:13-Mar-2022 Instruction Type:Patient Education Patient Instructions Start:14-Feb-2022 Instruction Type:Provider Instructions for Treatment Patient Instructions Indication:Menopausal symptoms Start:01-Feb-2022 Instruction Type:Provider Instructions for Treatment How to Access Health Informa tion Online using Patient Portal and [employer] Apps Indication:Menopausal symptoms Start:01-Feb-2022 Instruction Type:Patient Education [facility]; [facility] Work Phone: Instructions* Name Dates Details Patient Instructions Indication:BMI 30.0-30.9,adult Start:15-Nov-2022 Instruction Type:Provider Instructions for Treatment How to Access Health Informa tion Online using Patient Portal and [employer] Apps Indication:BMI 30.0-30.9,adult Start:15-Nov-2022 Instruction Type:Patient Education Patient Instructions Indication:Elevated hemoglobin A1c Start:31-Oct-2022 Instruction Type:Provider Instructions for Treatment How to Access Health Informa tion Online using Patient Portal and [employer] Apps Indication:Elevated hemoglobin A1c Start:31-Oct-2022 Instruction Type:Patient Education Patient Instructions Indication:Former smoker Start:31-Jul-2022 Instruction Type:Provider Instructions for Treatment How to Access Health Informa tion Online using Patient Portal and [employer] Apps Indication:Former smoker Start:31-Jul-2022 Instruction Type:Patient Education Patient Instructions Indication:Acute bronchitis Start:06-Jun-2022 Instruction Type:Provider Instructions for Treatment How to Access Health Informa tion Online using Patient Portal and [employer] Apps Indication:Acute bronchitis Start:06-Jun-2022 Instruction Type:Patient Education Patient Instructions Indication:Former smoker Start:21-Apr-2022 Instruction Type:Provider Instructions for Treatment How to Access Health Informa tion Online using Patient Portal and [employer] Apps Indication:Former smoker Start:21-Apr-2022 Instruction Type:Patient Education Patient Instructions Indication:Left breast mass Start:13-Mar-2022 Instruction Type:Provider Instructions for Treatment How to Access Health Informa tion Online using Patient Portal and [employer] Apps Indication:Left breast mass Start:13-Mar-2022 Instruction Type:Patient Education Patient Instructions Start:14-Feb-2022 Instruction Type:Provider Instructions for Treatment Patient Instructions Indication:Menopausal symptoms Start:01-Feb-2022 Instruction Type:Provider Instructions for Treatment How to Access Health Informa tion Online using Patient Portal and [employer] Apps Indication:Menopausal symptoms Start:01-Feb-2022 Instruction Type:Patient Education [facility]; [facility] Work Phone: Instructions* Name Dates Details Patient Instructions Indication:BMI 30.0-30.9,adult Start:15-Nov-2022 Instruction Type:Provider Instructions for Treatment How to Access Health Informa tion Online using Patient Portal and [employer] Apps Indication:BMI 30.0-30.9,adult Start:15-Nov-2022 Instruction Type:Patient Education Patient Instructions Indication:Elevated hemoglobin A1c Start:31-Oct-2022 Instruction Type:Provider Instructions for Treatment How to Access Health Informa tion Online using Patient Portal and [employer] Apps Indication:Elevated hemoglobin A1c Start:31-Oct-2022 Instruction Type:Patient Education Patient Instructions Indication:Former smoker Start:31-Jul-2022 Instruction Type:Provider Instructions for Treatment How to Access Health Informa tion Online using Patient Portal and [employer] Apps Indication:Former smoker Start:31-Jul-2022 Instruction Type:Patient Education Patient Instructions Indication:Acute bronchitis Start:06-Jun-2022 Instruction Type:Provider Instructions for Treatment How to Access Health Informa tion Online using Patient Portal and [employer] Apps Indication:Acute bronchitis Start:06-Jun-2022 Instruction Type:Patient Education Patient Instructions Indication:Former smoker Start:21-Apr-2022 Instruction Type:Provider Instructions for Treatment How to Access Health Informa tion Online using Patient Portal and [employer] Apps Indication:Former smoker Start:21-Apr-2022 Instruction Type:Patient Education Patient Instructions Indication:Left breast mass Start:13-Mar-2022 Instruction Type:Provider Instructions for Treatment How to Access Health Informa tion Online using Patient Portal and [employer] Apps Indication:Left breast mass Start:13-Mar-2022 Instruction Type:Patient Education Patient Instructions Start:14-Feb-2022 Instruction Type:Provider Instructions for Treatment Patient Instructions Indication:Menopausal symptoms Start:01-Feb-2022 Instruction Type:Provider Instructions for Treatment How to Access Health Informa tion Online using Patient Portal and [employer] Apps Indication:Menopausal symptoms Start:01-Feb-2022 Instruction Type:Patient Education [facility]; [facility] Work Phone: Instructions* Name Dates Details Patient Instructions Indication:BMI 30.0-30.9,adult Start:15-Nov-2022 Instruction Type:Provider Instructions for Treatment How to Access Health Informa tion Online using Patient Portal and [employer] Apps Indication:BMI 30.0-30.9,adult Start:15-Nov-2022 Instruction Type:Patient Education Patient Instructions Indication:Elevated hemoglobin A1c Start:31-Oct-2022 Instruction Type:Provider Instructions for Treatment How to Access Health Informa tion Online using Patient Portal and [employer] Apps Indication:Elevated hemoglobin A1c Start:31-Oct-2022 Instruction Type:Patient Education Patient Instructions Indication:Former smoker Start:31-Jul-2022 Instruction Type:Provider Instructions for Treatment How to Access Health Informa tion Online using Patient Portal and [employer] Apps Indication:Former smoker Start:31-Jul-2022 Instruction Type:Patient Education Patient Instructions Indication:Acute bronchitis Start:06-Jun-2022 Instruction Type:Provider Instructions for Treatment How to Access Health Informa tion Online using Patient Portal and [employer] Apps Indication:Acute bronchitis Start:06-Jun-2022 Instruction Type:Patient Education Patient Instructions Indication:Former smoker Start:21-Apr-2022 Instruction Type:Provider Instructions for Treatment How to Access Health Informa tion Online using Patient Portal and [employer] Apps Indication:Former smoker Start:21-Apr-2022 Instruction Type:Patient Education Patient Instructions Indication:Left breast mass Start:13-Mar-2022 Instruction Type:Provider Instructions for Treatment How to Access Health Informa tion Online using Patient Portal and [employer] Apps Indication:Left breast mass Start:13-Mar-2022 Instruction Type:Patient Education Patient Instructions Start:14-Feb-2022 Instruction Type:Provider Instructions for Treatment Patient Instructions Indication:Menopausal symptoms Start:01-Feb-2022 Instruction Type:Provider Instructions for Treatment How to Access Health Informa tion Online using Patient Portal and [employer] Apps Indication:Menopausal symptoms Start:01-Feb-2022 Instruction Type:Patient Education [facility]; [facility] Work Phone: progress note No data available for this section [facility] Reason for referral (narrative)* Outpatient Procedure (Routine) - Pending Review Specialty Diagnoses / Procedures Referred By Conttayler t Referred To Contact Diagnoses Esophageal dysphagia Procedures MANOMETRY ESOPHAGEAL ESOPHAGEAL MOTILITY STUDY W/INTERP&RPT Wild Ramirez MD [address] [facility] [place] [address] [id number] Referral ID Status Reason Start Date Expiration Date Visits Requested Visits Authorized [id number] Pending Review Auto-Generat ed Referral 05/16/2022 05/16/2023 1 1 [facility] Summary Purpose Family History Unknown Family Member Name Dates Details Family Members In General Status:Active Father Comments:alcoholism htn high chol- age 56- mi and had afib Status:Active Maternal Grandmother Comments:60s breast cancer Status:Active Mother Comments:dm epilepsy Status:Active Unknown Family Member Name Dates Details Family Members In General Status:Active Father Comments:alcoholism htn high chol- age 56- mi and had afib Status:Active Maternal Grandmother Comments:60s breast cancer Status:Active Mother Comments:dm epilepsy Status:Active Unknown Family Member Name Dates Details Family Members In General Status:Active Father Comments:alcoholism htn high chol- age 56- mi and had afib Status:Active Maternal Grandmother Comments:60s breast cancer Status:Active Mother Comments:dm epilepsy Status:Active Unknown Family Member Name Dates Details Family Members In General Status:Active Father Comments:alcoholism htn high chol- age 56- mi and had afib Status:Active Maternal Grandmother Comments:60s breast cancer Status:Active Mother Comments:dm epilepsy Status:Active Unknown Family Member Name Dates Details Family Members In General Status:Active Father Comments:alcoholism htn high chol- age 56- mi and had afib Status:Active Maternal Grandmother Comments:60s breast cancer Status:Active Mother Comments:dm epilepsy Status:Active Unknown Family Member Name Dates Details Family Members In General Status:Active Father Comments:alcoholism htn high chol- age 56- mi and had afib Status:Active Maternal Grandmother Comments:60s breast cancer Status:Active Mother Comments:dm epilepsy Status:Active Unknown Family Member Name Dates Details Family Members In General Status:Active Father Comments:alcoholism htn high chol- age 56- mi and had afib Status:Active Maternal Grandmother Comments:60s breast cancer Status:Active Mother Comments:dm epilepsy Status:Active Unknown Family Member Name Dates Details Family Members In General Status:Active Father Comments:alcoholism htn high chol- age 56- mi and had afib Status:Active Maternal Grandmother Comments:60s breast cancer Status:Active Mother Comments:dm epilepsy Status:Active Unknown Family Member Name Dates Details Family Members In General Status:Active Father Comments:alcoholism htn high chol- age 56- mi and had afib Status:Active Maternal Grandmother Comments:60s breast cancer Status:Active Mother Comments:dm epilepsy Status:Active Unknown Family Member Name Dates Details Family Members In General Status:Active Father Comments:alcoholism htn high chol- age 56- mi and had afib Status:Active Maternal Grandmother Comments:60s breast cancer Status:Active Mother Comments:dm epilepsy Status:Active Unknown Family Member Name Dates Details Family Members In General Status:Active Father Comments:alcoholism htn high chol- age 56- mi and had afib Status:Active Maternal Grandmother Comments:60s breast cancer Status:Active Mother Comments:dm epilepsy Status:Active Unknown Family Member Name Dates Details Family Members In General Status:Active Father Comments:alcoholism htn high chol- age 56- mi and had afib Status:Active Maternal Grandmother Comments:60s breast cancer Status:Active Mother Comments:dm epilepsy Status:Active Unknown Family Member Name Dates Details Family Members In General Status:Active Father Comments:alcoholism htn high chol- age 56- mi and had afib Status:Active Maternal Grandmother Comments:60s breast cancer Status:Active Mother Comments:dm epilepsy Status:Active Unknown Family Member Name Dates Details Family Members In General Status:Active Father Comments:alcoholism htn high chol- age 56- mi and had afib Status:Active Maternal Grandmother Comments:60s breast cancer Status:Active Mother Comments:dm epilepsy Status:Active Unknown Family Member Name Dates Details Family Members In General Status:Active Father Comments:alcoholism htn high chol- age 56- mi and had afib Status:Active Maternal Grandmother Comments:60s breast cancer Status:Active Mother Comments:dm epilepsy Status:Active Unknown Family Member Name Dates Details Family Members In General Status:Active Father Comments:alcoholism htn high chol- age 56- mi and had afib Status:Active Maternal Grandmother Comments:60s breast cancer Status:Active Mother Comments:dm epilepsy Status:Active Unknown Family Member Name Dates Details Family Members In General Status:Active Father Comments:alcoholism htn high chol- age 56- mi and had afib Status:Active Maternal Grandmother Comments:60s breast cancer Status:Active Mother Comments:dm epilepsy Status:Active Unknown Family Member Name Dates Details Family Members In General Status:Active Father Comments:alcoholism htn high chol- age 56- mi and had afib Status:Active Maternal Grandmother Comments:60s breast cancer Status:Active Mother Comments:dm epilepsy Status:Active Unknown Family Member Name Dates Details Family Members In General Status:Active Father Comments:alcoholism htn high chol- age 56- mi and had afib Status:Active Maternal Grandmother Comments:60s breast cancer Status:Active Mother Comments:dm epilepsy Status:Active Unknown Family Member Name Dates Details Family Members In General Status:Active Father Comments:alcoholism htn high chol- age 56- mi and had afib Status:Active Maternal Grandmother Comments:60s breast cancer Status:Active Mother Comments:dm epilepsy Status:Active Advance Directives No Advanced Directives Records FoundNo Advanced Directives Records FoundNo Advanced Directives Records FoundNo Advanced Directives Records FoundNo Advanced Directives Records Found Additional Source Comments INFORMATION SOURCE (unrecogn ized section and content) DATE CREATED AUTHOR AUTHOR'S ORGANIZ ATION 01/04/2021 [facility] DATE CREATED AUTHOR AUTHOR'S ORGANIZ ATION 05/20/2022 [facility] DATE CREATED AUTHOR AUTHOR'S ORGANIZ ATION 08/01/2022 [facility] DATE CREATED AUTHOR AUTHOR'S ORGANIZ ATION 10/11/2022 [facility] ([place] Source Comments (unrecognize d section and content) In the event this informatio n is protected by the Federal Confidentiality of Alcohol and Drug Abuse Patient Records regulations: The Federal rules restrict any use of the information to criminally investigate or prosecute any alcohol or drug abuse patient.[facility] the event this information is protected by the Federal Confidentiality of Alcohol and Drug Abuse Patient Records regulations: The Federal rules restrict any use of the information to criminally investigate or prosecute any alcohol or drug abuse patient.[facility] the event this information is protected by the Federal Confidentiality of Alcohol and Drug Abuse Patient Records regulations: The Federal rules restrict any use of the information to criminally investigate or prosecute any alcohol or drug abuse patient.[facility] Reason for Visit (unrecogniz ed section and content) Reason Comments Follow Up EGD results Reason Comments Patient Question Care Teams (unrecognized sec tion and content) Pattern Generator Operator Relationship Specialty Start Date End Date Noreen Donnelly DO [address] [facility] [address] [place] [address] PCP - General Internal Medicine 04/24/22 Pattern Generator Operator Relationship Specialty Start Date End Date Noreen Donnelly, [address] [facility] [address] [place], [place] [id number] PCP - General Internal Medicine 04/24/22 FOR RECORDS PERTAINING TO PATIENTS WHO ARE OR HAVE BEEN ENROLLED IN A CHEMICAL DEPENDENCY/SUBSTANCEABUSE PROGRAM, SOME INFORMATION MAY BE OMITTED. This clinical summary was aggregated from multiple sources. Caution should be exercised in using it in the provision of clinical care. This summary normalizes information from multiple sources, and as a consequence, information in this document may materially change the coding, format and clinical context of patient data. In addition, data may be omitted in some cases. CLINICAL DECISIONS SHOULD BE BASED ON THE PRIMARY CLINICAL RECORDS. [employer] provides no warranty or guarantee of the accuracy or completeness of information in this document.
[2023-05-21] MEDS: Lactated Ringers 1,000 ML 15 ML IV (05:59)
[2023-05-21] MEDS: Cefazolin 2 GM in 0.9% Normal Saline (100mL Bag) 100 ML IV (07:37)
[2023-05-21] MEDS: Epinephrine (1 mg/ml) 1 MG/ML VIAL ×2 (08:07→08:08)
--- NOTE | 2023-05-21 08:59 | OP.PCM_ITS ---
Report of Operation Date of Procedure: 05/21/23 Pre-Operative Diagnosis: SAIS, AC arthritis, Biceps tendinopathy, RC tear left shoulder Post-Operative Diagnosis: same Surgery/Procedure Performed:: SAD, Sebas procedure, Biceps Tenotomy, Rotator Cuff repair Surgeon: Davi Evans arresting gear operator: William Monreal Type of Anesthesia: General/Regional Anesthesiologist: Esau Aburto Procedure Start Time: 08:07 Procedure Stop Time: 09:04 Admit VTE Documentation VTE Present on Admission: No VTE Mechan Device Prophylaxis: SCD's VTE Pharm Prophylaxis ordered?: Yes
[2023-05-21] MEDS: Bupiv/Epi 0.25% 30 ML Vial (09:15)
[2023-05-21] MEDS: Oxycodone/Apap 5/325 Tablet PO (11:00)
== END 2023-05-21 11:46 | disposition home or self-care (01) ==
LOC: SDC 05:20 → AC 05:23
PROVIDERS: PCP Internal Medicine; Referring Provider Orthopaedic Surgery; Visit Provider Orthopaedic Surgery
PROC: (CPT 29827; principal; 2023-05-21 07:10)
DX: M75.102 Unspecified rotator cuff tear or rupture of left shoulder, not specified as traumatic (principal); M75.42 Impingement syndrome of left shoulder; M19.012 Primary osteoarthritis, left shoulder; M75.22 Bicipital tendinitis, left shoulder; F17.210 Nicotine dependence, cigarettes, uncomplicated; E66.3 Overweight; Z68.25 Body mass index [BMI] 25.0-25.9, adult
CPT/HCPCS: 29827; 29824; 29999; 29826; 01630; 64415; J7120; J0330; J2405

== ENCOUNTER 2024-09-03 07:55 | Outpatient (CLI) | payer BC, SELFPAY ==
[2024-09-03 09:16] LABS: Absolute Lymphocyte Count 2.62 X10^3/uL (0.83-4.51); Absolute Neutrophil Count 5.2 X10^3/uL (2.0-7.7); Basophil# 0.08 X10^3/uL; Basophil% 0.9 % (0-1); Eosinophil# 0.11 X10^3/uL; Eosinophils% 1.3 % (0-5); Hematocrit 41.8 % (37-47); Hemoglobin 14.2 g/dL (12.0-15.0); Lymphocyte # 2.62 X10^3/ul (0.83-4.51); Mean Corpuscular Hgb 30.1 pg (27.0-32.0); Mean Corpuscular Volume 88.6 fL (81-99); Mean Platelet Vol. 9.5 fl (6.2-12.0); Monocyte# 0.45 X10^3/uL; Monocyte% 5.3 % (0-10); NRBC Flagged by Analyzer 0 % (0-5); Neutrophil # 5.17 X10^3/uL (2.7-7.7); Neutrophil % 61.1 % (47-70); Platelet Count 243 K/mm3 (150-450); RBC Distribution Width CV 13.5 % (11.6-14.6); RBC Distribution Width SD 44.4 fl (35.1-43.9); Red Blood Count 4.72 M/mm3 (4.2-5.4); White Blood Count 8.5 K/mm3 (4.4-11.0)
[2024-09-03 10:36] LABS: Anion Gap 10 (5-15); BUN 11 mg/dL (4-19); BUN/Creat Ratio 16.9 RATIO (10-20); Calcium,Total 9.7 mg/dL (7.6-11.0); Carbon Dioxide 26.3 mmol/L (21.0-32.0); Chloride 103 mmol/L (98-108); Creatinine, Serum 0.65 mg/dL (0.70-1.20); EST Glomerular Filtration Rate 105 (>60); Glucose 82 mg/dL (70-99); Potassium 4.4 mmol/L (3.3-5.1); Sodium Level 139 mmol/L (133-145)
== END 2024-09-03 23:59 | disposition home or self-care (01) ==
PROVIDERS: PCP Nurse Practitioner Adult Health; Referring Provider Physician Assistant Surgical; Visit Provider Physician Assistant Surgical
DX: Z01.818 Encounter for other preprocedural examination (principal); Z01.810 Encounter for preprocedural cardiovascular examination
CPT/HCPCS: 36415; 80048; 85025

== ENCOUNTER 2024-11-19 07:00 | Outpatient (RCR) | payer BC, SELFPAY ==
--- NOTE | 2024-09-24 08:42 | HP.PTEVAL ---
Patient's Visit Information Visit Information Visit Information: BREN CROSS is a 54 year old F referred to Physical Therapy by ELIUD Aceves with a diagnosis of S/P RC repair, bicep tenodesis, and acromioplasty R 09/10/24. Date of Evaluation: 09/24/24 Physical Therapist: FOREIGN Bell Visit Plan Frequency: 2x /Week Duration: 3 Months Plan: 2x/ week for 12 weeks for PROM R shoulder (no ER greater than 40 degrees) until 4 weeks post op (10/10/24) and then can start AAROM (no loading bicep) until 8 weeks post of (11-07-24) and then can start strengthening on 11-07-24. HEP: scapular squeezes and pendulums Subjective Subjective: Pt reports that the bone spurs she had wore away her RC. R shoulder surgery. They repaired 2 tears, pulled bicep up, and shaved off bone as well and DOS was 09-10-24. She is in a sling and will be in it for 6 weeks. R handed. She is not sleeping well. She props herself up with pillows to sleep. 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 Pain R shoulder pain: Pain Intensity (Out of 10): 5 Objective Objective: R handed R shoulder PROM: ER 38 flexion 132 ABD Approx 95 Instructed pt in scapular squeezes and pendulums with handout Balance/Special Test Scores Quick DASH Score: 84.0900 Goals Goal 1:: I HEP Goal Time Frame: 8-12 Weeks Goal 2:: Increase AROM to full R shoulder flexion and ER (at the time of the eval R shoulder PROM: ER 38 flexion 132 ABD Approx 95) Goal Time Frame: 8-12 Weeks Goal 3:: Be able to use her R arm full function with ADL's and no pain by DC Goal Time Frame: 8-12 Weeks Goal 4:: Increase R shoulder strength to equal that of the L Goal Time Frame: 8-12 Weeks Rehabilitation Potential Rehabilitation Potential: Good Anticipated Interventions Patient/Client Instruction: Educate patient on: Condition and Plan of Care For the Purpose of:: To decrease pain, To decrease swelling/inflammation, To increase ROM, To improve nutrient delivery to tissue, To improve muscle performance and motor function, To improve ability to perform ADL's, To improve performance and independence with ADL's, To decrease level of supervision to perform tasks, To improve ability of physical actions for home/community/work/leisure, To improve health of tissue, To decrease soft tissue restriction and To increase flexibility/ROM Therapeutic Exercise to Include: Strength training, Endurance training, Postural training, Flexibilty training, Neuromotor development, Passive ROM, Active ROM and Scapular Strength/Stabilization For the Purpose of:: To decrease pain, To decrease swelling/inflammation, To increase ROM, To improve nutrient delivery to tissue, To improve muscle performance and motor function, To improve ability to perform ADL's, To increase tolerance to activity/condition/position, To improve performance and independence with ADL's, To decrease level of supervision to perform tasks, To improve health of tissue, To decrease soft tissue restriction and To increase flexibility/ROM Manual Therapy Techniques to Include: Passive ROM For the Purpose of:: To increase ROM and To improve health of tissue Cryotherapy (ice pack, ice massage): Yes Thermo therapy (hot pack): Yes For the Purpose of:: To decrease pain, To decrease swelling/inflammation, To increase ROM and To improve nutrient delivery to tissue Text: Thank you for the opportunity to evaluate your patient. For Medicare and Medicare HMO plans, please review the plan of care and approve it. It will need to be FAXED BACK to us at [phone] for Medicare purposes. For Medicare only, by signing this I certify the plan of care. Please let me know if there are questions or concerns regarding this plan of care. Physician Signature: Date:
--- NOTE | 2025-01-28 13:31 | HP.PT.NRP ---
Patient Information Patient Information: BREN CROSS was seen in my office for initial evaluation on 09/24/24. The following Plan of Care was established for this patient: POC Established Initial Frequency: 2x /Week Initial Duration: 3 Months Anticipated Interventions Patient/Client Instruction: Educate patient on: Condition and Plan of Care For the Purpose of:: To decrease pain, To decrease swelling/inflammation, To increase ROM, To improve nutrient delivery to tissue, To improve muscle performance and motor function, To improve ability to perform ADL's, To improve performance and independence with ADL's, To decrease level of supervision to perform tasks, To improve ability of physical actions for home/community/work/leisure, To improve health of tissue, To decrease soft tissue restriction and To increase flexibility/ROM Therapeutic Exercise to Include: Strength training, Endurance training, Postural training, Flexibilty training, Neuromotor development, Passive ROM, Active ROM and Scapular Strength/Stabilization For the Purpose of:: To decrease pain, To decrease swelling/inflammation, To increase ROM, To improve nutrient delivery to tissue, To improve muscle performance and motor function, To improve ability to perform ADL's, To increase tolerance to activity/condition/position, To improve performance and independence with ADL's, To decrease level of supervision to perform tasks, To improve health of tissue, To decrease soft tissue restriction and To increase flexibility/ROM Manual Therapy Techniques to Include: Passive ROM For the Purpose of:: To increase ROM and To improve health of tissue Cryotherapy (ice pack, ice massage): Yes Thermo therapy (hot pack): Yes For the Purpose of:: To decrease pain, To decrease swelling/inflammation, To increase ROM and To improve nutrient delivery to tissue Last Seen Last Seen: This patient was last seen in our office 11/19/24. Pertinent comments regarding their Physical therapy will appear below: DC PT At this point I will be discontinuing this patient from physical therapy. I would be happy to see this patient again in the future if found appropriate by the physician. Thank you! Cally Cherry, FOREIGN Balance/Gait/Functional tests Balance/Special Test Scores Quick DASH Score: 84.0900
== END 2024-11-19 19:00 | disposition home or self-care (01) ==
LOC: PT 07:00
PROVIDERS: PCP Nurse Practitioner Adult Health; Referring Provider Physician Assistant Surgical; Visit Provider Physician Assistant Surgical
DX: S46.011D Strain of muscle(s) and tendon(s) of the rotator cuff of right shoulder, subsequent encounter (principal); M75.41 Impingement syndrome of right shoulder; M19.011 Primary osteoarthritis, right shoulder
CPT/HCPCS: 97110; 97140; 97161